=== PATIENT | female | born 1980 | race Caucasian/White ===

== ENCOUNTER 2017-04-08 17:27 | Emergency (ER) | payer BC ==
[2017-04-08 17:36] VITALS: RESP 17
[2017-04-08] MEDS ORDERED: SODIUM CHLORIDE 0.9% 1,000 ML IV STA (17:59)
[2017-04-08] MEDS ORDERED: diphenhydrAMINE 50 MG/ML 1 ML VIAL IVP STA (17:59)
[2017-04-08] MEDS ORDERED: KETOROLAC 30 MG/ML 1 ML VIAL IVP STA (17:59)
[2017-04-08] MEDS ORDERED: METOCLOPRAMIDE 5 MG/ML 2 ML VIAL IVP STA (17:59)
--- NOTE | 2017-04-08 18:08 | ED ---
General Adult HPI - General Chief complaint: Headache Stated complaint: headache Time Seen by Provider: 04/08/17 17:54 Source: patient, RN notes reviewed Mode of arrival: ambulatory Limitations: no limitations - History of Present Illness Initial comments: 37 yo female presents to the emergency department complaining of headache. Patient states this headache gradually worsened. Patient has a long history of headaches. Patient states that she takes Imitrex for her headaches. Patient states she's had this headache for the last 8 days. Patient states she went to [facility] ago they gave her Toradol which only helped her for about 2 hours. Patient states that she just has this headache is so she thought she should come here to see if we. She does admit to some nausea with vomiting with this. Patient states this is much like her typical headaches. She tried to get in to neurologist that he was unable to see her. Patient denies any recent fever, chills, shortness of breath, chest pain, back pain, abdominal pain , numbness or tingling, dysuria or hematuria, constipation or diarrhea, visual changes, or any other current symptoms. - Related Data Home Medications Medication Instructions Recorded Confirmed Butalb/Acetaminophen/Caffeine 1 tab PO TID PRN 01/11/14 05/27/16 [Fioricet 50-325-40 mg Tablet] Amitriptyline HCl [Elavil] 100 mg PO HS 05/27/16 05/27/16 Minocycline HCl [Minocin] 100 mg PO HS 05/27/16 05/27/16 amLODIPine [Norvasc] 2.5 mg PO HS 05/27/16 05/27/16 Allergies Allergy/AdvReac Type Severity Reaction Status Date / Time zonisamide [From Zonegran] Allergy Rash/Hives Verified 04/08/17 17:33 adhesive tape AdvReac Peels Skin Verified 04/08/17 17:33 cyclobenzaprine HCl AdvReac Confusion/E Verified 04/08/17 17:33 [From Flexeril] motional Review of Systems ROS Statement: Those systems with pertinent positive or pertinent negative responses have been documented in the HPI. ROS Other: All systems not noted in ROS Statement are negative. Past Medical History Additional Past Medical History / Comment(s): headache, arnold chiari History of Any Multi-Drug Resistant Organisms: None Reported Past Surgical History: Section Additional Past Surgical History / Comment(s): head surgery, bilateral knee scope, Past Psychological History: Depression Smoking Status: Former smoker Past Alcohol Use History: Occasional Past Drug Use History: None Reported General Exam Limitations: no limitations General appearance: alert, in no apparent distress Head exam: Present: atraumatic, normocephalic, normal inspection Eye exam: Present: normal appearance, PERRL, EOMI. Absent: scleral icterus, conjunctival injection, periorbital swelling ENT exam: Present: normal exam, mucous membranes moist Neck exam: Present: normal inspection. Absent: tenderness, meningismus, lymphadenopathy Respiratory exam: Present: normal lung sounds bilaterally. Absent: respiratory distress, wheezes, rales, rhonchi, stridor Cardiovascular Exam: Present: regular rate, normal rhythm, normal heart sounds. Absent: systolic murmur, diastolic murmur, rubs, gallop, clicks Extremities exam: Present: normal inspection, full ROM, normal capillary refill. Absent: tenderness, pedal edema, joint swelling, calf tenderness Back exam: Present: normal inspection Neurological exam: Present: alert, oriented X3, CN II-XII intact, normal gait, reflexes normal. Absent: motor sensory deficit Psychiatric exam: Present: normal affect, normal mood Skin exam: Present: warm, dry, intact, normal color. Absent: rash Course Vital Signs 04/08/17 17:33 Temperature 98.9 F Pulse Rate 73 Respiratory 17 Rate Blood Pressure 135/72 O2 Sat by Pulse 100 Oximetry Medical Decision Making - Medical Decision Making 37 yo female presents to the ER with cc of headache x 8 days. Patient has a long history of headaches and states much like her normal headache. Patient at this time was reexamined and states her headache hasmuch improved. SHe would like to go home and get some sleep. At this time we will discharge her per her request. We discussed return parameters and follow up. All questions have been answered. Disposition Clinical Impression: Headache Disposition: HOME SELF-CARE Condition: Stable Instructions: Acute Headache (ED) Additional Instructions: Please use medication as discussed. Please follow up with family doctor if symptoms have not improved over the next two days. Please return to the emergency room if your symptoms increase or worsen or for any other concerns. Referrals: Taylor Talavera III, MD [Primary Care Provider] - 1-2 days Time of Disposition: 18:36
[2017-04-08 18:47] VITALS: BP 112/53; PULSE 64; TEMP 97.6
== END 2017-04-08 18:48 | disposition home or self-care (01) ==
LOC: EC 17:27
DX: F32.9 Major depressive disorder, single episode, unspecified (principal); Z87.891 Personal history of nicotine dependence; Z79.899 Other long term (current) drug therapy; Z88.8 Allergy status to other drugs, medicaments and biological substances; Z91.048 Other nonmedicinal substance allergy status
CPT/HCPCS: 99283; 96374; 96375 ×2; 96361; J1200; J2765; J1885

== ENCOUNTER 2017-11-17 02:07 | Emergency (ER) | payer BC ==
[2017-11-17 02:15] VITALS: TEMP 97.2
[2017-11-17] MEDS ORDERED: KETOROLAC 30 MG/ML 1 ML VIAL IVP STA (02:37)
[2017-11-17] MEDS ORDERED: ONDANSETRON 4 MG/2 ML VIAL IVP STA (02:37)
--- NOTE | 2017-11-17 02:45 | ED ---
General Adult HPI - General Chief complaint: Abdominal Pain Stated complaint: Left side pain Time Seen by Provider: 11/17/17 02:28 Source: patient, RN notes reviewed Mode of arrival: ambulatory Limitations: no limitations - History of Present Illness Initial comments: This is a 37-year-old female who presents to the emergency department with chief complaint of left side pain. Patient states that she has felt this pain multiple times in the past but that it usually goes away within 30 minutes. She states that tonight at approximately 6 PM the left side pain came on. She states that she went to bed and was woken up in the middle of the night from the pain. She describes the pain as a constant dull ache with burning. The pain is made worse by lying flat down and is made better by sitting up. She admits to associated nausea and one episode of vomiting. Denies any constipation or diarrhea. Denies chest pain or shortness of breath, fevers or chills, dizziness or headache. Patient denies any recent injuries or trauma. - Related Data Home Medications Medication Instructions Recorded Confirmed Topiramate [Topamax] 50 mg PO BID 04/08/17 11/17/17 Allergies Allergy/AdvReac Type Severity Reaction Status Date / Time zonisamide [From Zonegran] Allergy Rash/Hives Verified 04/08/17 18:46 adhesive tape AdvReac Peels Skin Verified 04/08/17 18:46 cyclobenzaprine HCl AdvReac Confusion/E Verified 04/08/17 18:46 [From Flexeril] motional Review of Systems ROS Statement: Those systems with pertinent positive or pertinent negative responses have been documented in the HPI. ROS Other: All systems not noted in ROS Statement are negative. Past Medical History Additional Past Medical History / Comment(s): headache, arnold chiari, reynauds History of Any Multi-Drug Resistant Organisms: None Reported Past Surgical History: Section Additional Past Surgical History / Comment(s): head surgery, bilateral knee scope, Past Psychological History: Depression Smoking Status: Former smoker Past Alcohol Use History: Occasional Past Drug Use History: None Reported General Exam - General Exam Comments Initial Comments: General: Awake and alert, well-developed; in no apparent distress. HEENT: Head atraumatic, normocephalic. Pupils are equal, round and reactive to light. Extraocular movements intact. Oropharynx moist without erythema or exudate. Neck: Supple. Normal ROM. Cardiovascular: Regular rate and rhythm. No murmurs, rubs or gallops. Chest symmetrical. Tenderness on palpation of anterior lower left sided ribs. Respiratory: Lungs clear to auscultation bilaterally. No wheezes, rales or rhonchi. Normal respiratory effort with no use of accessory muscles. Abdomen: Soft, non-tender, non-distended. No rigidity, rebound or guarding. Normal bowel sounds in all 4 quadrants. Musculoskeletal: Normal ROM, no tenderness bilateral upper and lower extremities. Ambulating normally. Skin: [place], warm and dry without rashes or lesions. Neurological: Alert and oriented x3. CN II-XII grossly intact. Speech is fluent and answers are appropriate. No focal neuro deficits. Psychiatric: Normal mood and affect. No overt signs of depression or anxiety noted. Limitations: no limitations Course Vital Signs 11/17/17 11/17/17 02:11 03:03 Temperature 97.2 F L Pulse Rate 80 68 Respiratory 20 16 Rate Blood Pressure 120/58 116/58 O2 Sat by Pulse 100 100 Oximetry EKG Findings - EKG Comments: EKG Findings:: 03:25:55. Normal sinus rhythm. Ventricular rate 63 bpm, WA interval 124, QRS duration 98, QT/QTc 400/409. No ST segment elevation or depression. Medical Decision Making - Medical Decision Making This is a 37-year-old female who presents to the emergency department with chief complaint of left side pain. Patient states that she developed pain under the left ribs earlier this evening. She denies any specific injury or trauma. She states that she went to bed and the pain woke her up out of her sleep. She admits to associated nausea and one episode of vomiting. Denies any fevers or chills. Denies chest pain, shortness of breath or cough. On physical examination, there is tenderness on palpation of the anterior left lower ribs. Abdomen is soft and non-tender. CBC, CMP and UA are unremarkable. X-ray of left ribs and AP chest revealed no acute abnormalities. EKG revealed normal sinus rhythm with no evidence for ST segment elevation or depression. Patient's vital signs are stable and she is afebrile. She was given Toradol and Zofran while in the emergency department. Patient states that her symptoms have much improved. Patient will be discharged home with recommendation to follow-up with her primary care provider. She is in agreement with plan and voices understanding. All questions were answered. - Lab Data Result diagrams: 11/17/17 02:25 11/17/17 02:25 Lab Results 11/17/17 11/17/17 11/17/17 Range/Units 02:25 02:25 02:25 WBC 9.4 (3.8-10.6) k/uL RBC 4.73 (3.80-5.40) m/uL Hgb 13.5 (11.4-16.0) gm/dL Hct 40.2 (34.0-46.0) % MCV 85.0 (80.0-100.0) fL MCH 28.5 (25.0-35.0) pg MCHC 33.6 (31.0-37.0) g/dL RDW 13.7 (11.5-15.5) % Plt Count 338 (150-450) k/uL Neutrophils % 52 % Lymphocytes % 38 % Monocytes % 5 % Eosinophils % 3 % Basophils % 1 % Neutrophils # 4.9 (1.3-7.7) k/uL Lymphocytes # 3.6 (1.0-4.8) k/uL Monocytes # 0.5 (0-1.0) k/uL Eosinophils # 0.3 (0-0.7) k/uL Basophils # 0.1 (0-0.2) k/uL Sodium 141 (137-145) mmol/L Potassium 3.8 (3.5-5.1) mmol/L Chloride 105 (98-107) mmol/L Carbon Dioxide 26 (22-30) mmol/L Anion Gap 10 mmol/L BUN 16 (7-17) mg/dL Creatinine 1.00 (0.52-1.04) mg/dL Est GFR (CKD-EPI)AfAm 84 (>60 ml/min/1.73 sqM) Est GFR (CKD-EPI)NonAf 73 (>60 ml/min/1.73 sqM) Glucose 101 H (74-99) mg/dL Calcium 9.5 (8.4-10.2) mg/dL Total Bilirubin 0.4 (0.2-1.3) mg/dL AST 15 (14-36) U/L ALT 19 (9-52) U/L Alkaline Phosphatase 75 (38-126) U/L Total Protein 7.7 (6.3-8.2) g/dL Albumin 4.4 (3.5-5.0) g/dL Amylase 62 (30-110) U/L Lipase 108 (23-300) U/L Urine Color Urine Appearance (Clear) Urine pH (5.0-8.0) Ur Specific [place] (1.001-1.035) Urine Protein (Negative) Urine Glucose (UA) (Negative) Urine Ketones (Negative) Urine Blood (Negative) Urine Nitrite (Negative) Urine Bilirubin (Negative) Urine Urobilinogen (<2.0) mg/dL Ur Leukocyte Esterase (Negative) Urine HCG, Qual Not Detected (Not Detectd) 11/17/17 Range/Units 02:25 WBC (3.8-10.6) k/uL RBC (3.80-5.40) m/uL Hgb (11.4-16.0) gm/dL Hct (34.0-46.0) % MCV (80.0-100.0) fL MCH (25.0-35.0) pg MCHC (31.0-37.0) g/dL RDW (11.5-15.5) % Plt Count (150-450) k/uL Neutrophils % % Lymphocytes % % Monocytes % % Eosinophils % % Basophils % % Neutrophils # (1.3-7.7) k/uL Lymphocytes # (1.0-4.8) k/uL Monocytes # (0-1.0) k/uL Eosinophils # (0-0.7) k/uL Basophils # (0-0.2) k/uL Sodium (137-145) mmol/L Potassium (3.5-5.1) mmol/L Chloride (98-107) mmol/L Carbon Dioxide (22-30) mmol/L Anion Gap mmol/L BUN (7-17) mg/dL Creatinine (0.52-1.04) mg/dL Est GFR (CKD-EPI)AfAm (>60 ml/min/1.73 sqM) Est GFR (CKD-EPI)NonAf (>60 ml/min/1.73 sqM) Glucose (74-99) mg/dL Calcium (8.4-10.2) mg/dL Total Bilirubin (0.2-1.3) mg/dL AST (14-36) U/L ALT (9-52) U/L Alkaline Phosphatase (38-126) U/L Total Protein (6.3-8.2) g/dL Albumin (3.5-5.0) g/dL Amylase (30-110) U/L Lipase (23-300) U/L Urine Color Light Yellow Urine Appearance Clear (Clear) Urine pH 5.5 (5.0-8.0) Ur Specific [place] 1.011 (1.001-1.035) Urine Protein Negative (Negative) Urine Glucose (UA) Negative (Negative) Urine Ketones Negative (Negative) Urine Blood Negative (Negative) Urine Nitrite Negative (Negative) Urine Bilirubin Negative (Negative) Urine Urobilinogen <2.0 (<2.0) mg/dL Ur Leukocyte Esterase Negative (Negative) Urine HCG, Qual (Not Detectd) - Radiology Data Radiology results: report reviewed X-ray left ribs with PA chest findings: Heart and mediastinum are normal. Lungs are clear. Diaphragm is normal. Bony thorax appears normal. The left ribs appear intact. There is no sign of pleural effusion or pneumothorax. Impression: Normal chest. Normal left ribs. Disposition Clinical Impression: Rib pain on left side Disposition: HOME SELF-CARE Condition: Good Instructions: Acute Abdominal Pain (ED), Chest Wall Pain (ED) Additional Instructions: Please follow up with primary care provider within 1-2 days. Return to emergency department if symptoms should worsen or any concerns arise. Referrals: Taylor Talavera III, MD [Primary Care Provider] - 1-2 days Time of Disposition: 03:45
[2017-11-17 02:51] LABS: Basophils # (A) 0.1 k/uL (0-0.2); Basophils % (A) 1 %; Eosinophils # (A) 0.3 k/uL (0-0.7); Eosinophils % (A) 3 %; HCT 40.2 % (34.0-46.0); HGB 13.5 gm/dL (11.4-16.0); Lymphocytes # (A) 3.6 k/uL (1.0-4.8); Lymphocytes % (A) 38 %; MCH 28.5 pg (25.0-35.0); MCHC 33.6 g/dL (31.0-37.0); Mean Platelet Volume 7.5; Monocytes # (A) 0.5 k/uL (0-1.0); Monocytes % (A) 5 %; Neutrophils # (A) 4.9 k/uL (1.3-7.7); Neutrophils % (A) 52 %; Platelet Count 338 k/uL (150-450); RBC 4.73 m/uL (3.80-5.40); RDW 13.7 % (11.5-15.5); WBC 9.4 k/uL (3.8-10.6)
[2017-11-17 02:52] LABS: Appearance,Urine Clear (Clear); Bilirubin,Urine Negative (Negative); Blood,Urine Negative (Negative); Color,Urine Light Yellow; Glucose,Urine (UA) Negative (Negative); Ketones,Urine Negative (Negative); Leukocyte Esterase,Urine Negative (Negative); Nitrite,Urine Negative (Negative); PH, Urine 5.5 (5.0-8.0); Protein,Urine Negative (Negative); Specific Gravity,Urine 1.011 (1.001-1.035); Urobilinogen,Urine <2.0 mg/dL (<2.0)
--- NOTE | 2017-11-17 02:58 | XR ---
EXAMINATION TYPE: XR ribs LT w pa chest xray DATE OF EXAM: 11/17/2017 COMPARISON: NONE HISTORY: Rib pain TECHNIQUE: 5 views FINDINGS: Heart and mediastinum are normal. Lungs are clear. Diaphragm is normal. Bony thorax appears normal. The left ribs appear intact. There is no sign of pleural effusion or pneumothorax. IMPRESSION: Normal chest. Normal left ribs.
[2017-11-17 03:05] VITALS: BP 116/58; PULSE 68; RESP 16
[2017-11-17 03:06] LABS: Albumin 4.4 g/dL (3.5-5.0); Calcium 9.5 mg/dL (8.4-10.2); Potassium 3.8 mmol/L (3.5-5.1); Total Bilirubin 0.4 mg/dL (0.2-1.3); Total Protein 7.7 g/dL (6.3-8.2)
[2017-11-17] MEDS ORDERED: MAG HYDROX/AL HYDROX/SIMETH 30 ML, HYOSCYAMINE ELIXIR 10 ML, CIMETIDINE HCL 300 MG, LID... PO STA ×4 (03:18)
== END 2017-11-17 04:04 | disposition home or self-care (01) ==
LOC: EC 02:07
DX: R07.81 Pleurodynia (principal); R11.2 Nausea with vomiting, unspecified; Q07.00 Arnold-Chiari syndrome without spina bifida or hydrocephalus; Z87.891 Personal history of nicotine dependence; Z79.899 Other long term (current) drug therapy; Z88.8 Allergy status to other drugs, medicaments and biological substances; Z91.048 Other nonmedicinal substance allergy status
CPT/HCPCS: 36415; 93005; 80053; 82150; 83690; 85025; 81003; 81025; 71101; 99284; 96374; 96375; J2405; J1885

== ENCOUNTER 2018-03-04 19:41 | Emergency (ER) | payer BC ==
[2018-03-04 19:48] VITALS: RESP 18; TEMP 98.2
[2018-03-04] MEDS ORDERED: PROPARACAINE 0.5% OPHTH DROPS 15 ML BTL LEFT EYE STA (20:35)
--- NOTE | 2018-03-04 20:43 | ED ---
General Adult HPI - General Chief complaint: ENT Stated complaint: FB eye Time Seen by Provider: 03/04/18 20:17 Source: patient Mode of arrival: ambulatory Limitations: no limitations - History of Present Illness Initial comments: Patient is a 38-year-old female presenting for right eye pain. She states that on Wednesday, she wants her cabin in [facility] and went swimming in [place] on Wednesday. She then was doing some work in her showed on Wednesday and noted that there was some kind of foreign body sensation in right eye. On Wednesday, she started noticing some swelling and then on Wednesday he became more flushed and she was seen at an outside clinic where they diagnosed her with a corneal abrasion and gave her tobramycin drops. However, she states that she is now having increased pain with some mild blurry vision. However, she states that the swelling that was surrounding her eye has gone down after she was started on some antibiotics. Additionally, she denies any fevers/chills or headaches. - Related Data Home Medications Medication Instructions Recorded Confirmed Topiramate [Topamax] 50 mg PO HS 04/08/17 03/04/18 Acetaminophen [Tylenol Extra 1,000 mg PO TID PRN 03/04/18 03/04/18 Strength] Amitriptyline HCl [Elavil] 25 mg PO HS 03/04/18 03/04/18 Ibuprofen [Motrin Ib] 600 mg PO TID PRN 03/04/18 03/04/18 Sertraline [Zoloft] 25 mg PO HS 03/04/18 03/04/18 Tobramycin 0.3% Ophth Soln [Tobrex 2 drop RIGHT EYE Q4H 03/04/18 03/04/18 0.3% Ophth Soln] amLODIPine [Norvasc] 5 mg PO HS 03/04/18 03/04/18 Previous Rx's Medication Instructions Recorded Diclofenac 0.1% Ophth Soln 1 drops RIGHT EYE QID #1 bottle 03/04/18 [Voltaren 0.1% Ophth Soln] Peg 400/Hypromellose/Glycerin 15 ml OP Q4-6H 7 Days #1 bottle 03/04/18 [Visine Dry Eye Relief Drop] Allergies Allergy/AdvReac Type Severity Reaction Status Date / Time [facility] Allergy Rash/Hives Verified 03/04/18 20:29 adhesive tape AdvReac Peels Skin Verified 03/04/18 20:29 cyclobenzaprine HCl AdvReac Confusion/E Verified 03/04/18 20:29 [From Flexeril] motional Review of Systems ROS Statement: Those systems with pertinent positive or pertinent negative responses have been documented in the HPI. Constitutional: Negative for chills, fatigue and fever. HENT: Negative for congestion. Eyes: Right eye pain and swelling; blurry vision Respiratory: Negative for chest tightness, shortness of breath and wheezing. Negative for cough Cardiovascular: Negative for chest pain and palpitations. Gastrointestinal: Negative for abdominal pain. Negative for abdominal distention , diarrhea, nausea and vomiting. Genitourinary: Negative for dysuria. Musculoskeletal: Negative for back pain, neck pain and neck stiffness. Skin: Negative for color change. Neurological: Negative for dizziness, speech difficulty, weakness and light- headedness. Psychiatric/Behavioral: Negative for agitation and confusion. Negative for anxiety ROS Other: All systems not noted in ROS Statement are negative. Past Medical History Additional Past Medical History / Comment(s): headache, arnold chiari, reynauds History of Any Multi-Drug Resistant Organisms: None Reported Past Surgical History: Section Additional Past Surgical History / Comment(s): head surgery, bilateral knee scope, Past Psychological History: No Psychological Hx Reported Smoking Status: Former smoker Past Alcohol Use History: Occasional Past Drug Use History: None Reported General Exam - General Exam Comments Initial Comments: Constitutional: Pt is oriented to person, place, and time. Pt appears well- developed and well-nourished. No distress. HENT: Head: Normocephalic and atraumatic. Eyes: EOM are normal. Conjunctival injection with chemosis of the right eye. Pupils 3 mm and reactive bilaterally. Neck: Normal range of motion. Neck supple. Cardiovascular: Normal rate, regular rhythm, S1 normal, S2 normal and normal heart sounds. Exam reveals no gallop and no friction rub. No murmur heard. Pulmonary/Chest: Effort normal and breath sounds normal. No tachypnea and no bradypnea. No respiratory distress. No wheezes or rales noted. Abdominal: Soft. Bowel sounds are normal. Pt exhibits no shifting dullness, no distension, no pulsatile liver, no fluid wave, no abdominal bruit and no ascites. There is no tenderness. There is no rigidity, no rebound, no guarding, no tenderness at McBurney's point and negative Thomas's sign. Musculoskeletal: Normal range of motion. Neurological: Pt is alert and oriented to person, place, and time. No cranial nerve deficit. Skin: Skin is warm and dry. No rash noted. Pt is not diaphoretic. No erythema. No pallor. Psychiatric: Pt has a normal mood and affect. Pt behavior is normal. Thought content normal. Limitations: no limitations Course Vital Signs 03/04/18 03/04/18 19:43 22:50 Temperature 98.2 F 98.2 F Pulse Rate 91 82 Respiratory 18 18 Rate Blood Pressure 138/85 142/75 O2 Sat by Pulse 100 100 Oximetry Medical Decision Making - Medical Decision Making Slit lamp exam was performed and showed that there was some fluorescein uptake around the area of the pupil as well as the medial conjunctiva. This is discussed with ophthalmology on-call, Dr. Mao, and it was advised that the patient should be given a prescription for artificial tears as well as diclofenac drops 4 times a day. She was also advised to call the orderlies teacher on Wednesday and if the symptoms worsen, she should contact him prior to this. Visual acuity was also measured at 20/20 in the left eye, 20/25 in the right eye and 20/25 bilaterally and because of this, it was felt that the patient could be safely discharged with close follow-up. Patient was agreeable plan. Disposition Clinical Impression: Conjunctivitis, Chemosis of right conjunctiva Disposition: HOME SELF-CARE Condition: Good Instructions: Conjunctivitis (ED) Prescriptions: Diclofenac 0.1% Ophth Soln [Voltaren 0.1% Ophth Soln] 1 drops RIGHT EYE QID #1 bottle Peg 400/Hypromellose/Glycerin [Visine Dry Eye Relief Drop] 15 ml OP Q4-6H 7 Days #1 bottle Is patient prescribed a controlled substance at d/c from ED?: No Referrals: Taylor Talavera III, MD [Primary Care Provider] - 1-2 days Yoel Mao MD [STAFF PHYSICIAN] - 1-2 days Time of Disposition: 22:14
[2018-03-04 22:51] VITALS: BP 142/75; PULSE 82
== END 2018-03-04 22:51 | disposition home or self-care (01) ==
LOC: EC 19:41
DX: H11.421 Conjunctival edema, right eye (principal); Z87.891 Personal history of nicotine dependence; Z79.899 Other long term (current) drug therapy; Z88.8 Allergy status to other drugs, medicaments and biological substances; Z91.048 Other nonmedicinal substance allergy status
CPT/HCPCS: 99283

== ENCOUNTER 2018-05-24 14:29 | Emergency (ER) | payer BC ==
[2018-05-24 14:36] VITALS: PULSE 91; RESP 18
[2018-05-24] MEDS ORDERED: SODIUM CHLORIDE 0.9% 1,000 ML IV ONE (14:53)
--- NOTE | 2018-05-24 15:04 | ED ---
General Adult HPI - General Chief complaint: Abdominal Pain Stated complaint: abd pain,vomiting Source: patient Mode of arrival: ambulatory Limitations: no limitations - History of Present Illness Initial comments: 38-year-old female past medical history of Chiari malformation, Joseph disease and Raynauds who presents today for chief complaint of abdominal pain after eating and greasy stools for past month worsening3 days. Patient states that she has been experiencing abdominal pain after eating for the past few months, however for the past 2 days it has been worsening. She states that this begins to occur 15 minutes after meal, causing pain 7 out of 10. She states that this pain is localized to the epigastric region with radiation to the left upper quadrant and mid back. Patient denies any chest pain, shortness of breath, dyspnea on exertion, history of OK, paresthesias of upper extremities or jaw. Patient does admit to loose stools at feel greasy. She states that she has seen increase on the top of the water in the toilet. Patient denies any melena , hematochezia. Patient states that she has had one episode of vomiting yesterday after eating, and 2 episodes today. Patient admits to some nausea and a feeling of flushing prior to the episodes of vomiting. Patient denies any hematemesis, fever, chills. Patient denies any lower abdominal pain, vaginal bleeding, . Patient states that her last menstrual period was last week. Patient does state that she's been able to tolerate by mouth intake , however if it is greasy/fatty food she states she experienced the symptoms as above. However she has no symptoms to water or liquid beverages. Remainder was negative. Patient states that she contact her primary care provider who stated she should go to urgent care however at urgent care she was sent to the emergency department for evaluation. Upon arrival to emergency department today patient's vital signs stable, she is afebrile. Patient is pleasant and does not appear to be in acute distress. - Related Data Home Medications Medication Instructions Recorded Confirmed Topiramate [Topamax] 50 mg PO HS 04/08/17 05/24/18 Acetaminophen [Tylenol Extra 1,000 mg PO TID PRN 03/04/18 05/24/18 Strength] Amitriptyline HCl [Elavil] 25 mg PO HS 03/04/18 05/24/18 Ibuprofen [Motrin Ib] 400 mg PO TID PRN 03/04/18 05/24/18 Sertraline [Zoloft] 25 mg PO HS 03/04/18 05/24/18 amLODIPine [Norvasc] 5 mg PO HS 03/04/18 05/24/18 Allergies Allergy/AdvReac Type Severity Reaction Status Date / Time zonisamide [From Zonegran] Allergy Rash/Hives Verified 05/24/18 14:52 adhesive tape AdvReac Peels Skin Verified 05/24/18 14:52 cyclobenzaprine HCl AdvReac Confusion/E Verified 05/24/18 14:52 [From Flexeril] motional Review of Systems ROS Statement: Those systems with pertinent positive or pertinent negative responses have been documented in the HPI. ROS Other: All systems not noted in ROS Statement are negative. Constitutional: Denies: fever, chills, night sweats Eyes: Denies: vision change ENT: Denies: ear pain, throat pain Respiratory: Denies: cough, dyspnea, wheezes, hemoptysis, stridor Cardiovascular: Denies: chest pain, palpitations, dyspnea on exertion, orthopnea Gastrointestinal: Reports: abdominal pain, vomiting, diarrhea. Denies: nausea, constipation, hematemesis, melena, hematochezia Genitourinary: Denies: urgency, dysuria, frequency, hematuria Musculoskeletal: Reports: back pain (epigastric pain that radiation to the back) Skin: Denies: rash, lesions Neurological: Denies: headache, weakness, numbness, paresthesias, confusion, abnormal gait Past Medical History Additional Past Medical History / Comment(s): POTS, arnold mariam huntley History of Any Multi-Drug Resistant Organisms: None Reported Past Surgical History: Section Additional Past Surgical History / Comment(s): chiari decompression, bilateral knee scope, D&C Past Psychological History: No Psychological Hx Reported Smoking Status: Former smoker Past Alcohol Use History: Occasional Past Drug Use History: None Reported General Exam - General Exam Comments Initial Comments: General: The patient is awake and alert, in no distress, and does not appear acutely ill. No noted diaphoresis or protective posturing. No jaundice. Eye: Pupils are equal, round and reactive to light, extra-ocular movements are intact. No nystagmus. There is normal conjunctiva bilaterally. No signs of icterus. Ears, nose, mouth and throat: There are moist mucous membranes and no oral lesions. Neck: The neck is supple, there is no tenderness or JVD. Cardiovascular: There is a regular rate and rhythm. No murmur, rub or gallop is appreciated. Respiratory: Lungs are clear to auscultation, respirations are non-labored, breath sounds are equal. No wheezes, stridor, rales, or rhonchi. Gastrointestinal: No scarring on abdomen, ecchymosis upon inspection. Soft, non -distended, without masses or organomegaly noted. Pt admits to tenderness to deep palpation over the epigastric and LUQ. There is no rebound or guarding present. (-) Rovsing, meena, McBurneys or Rombergs signs. No RLQ, LLQ, pelvic or suprapubic tenderness. No CVA tenderness. Bowel sounds are unremarkable. No signs of peritoneal irritation, (-) heel jar. Musculoskeletal: Normal ROM, no tenderness. Strength 5/5. Sensation intact. Pulses equal bilaterally 2+. Neurological: A&O x 3. CN II-XII intact, There are no obvious motor or sensory deficits. Coordination appears grossly intact. Speech is normal. Skin: Skin is warm and dry and no rashes or lesions are noted. Psychiatric: Cooperative, appropriate mood & affect, normal judgment. Limitations: no limitations Course Vital Signs 05/24/18 05/24/18 14:33 17:22 Temperature 98 F 97.9 F Pulse Rate 91 91 Respiratory 18 18 Rate Blood Pressure 105/54 128/60 O2 Sat by Pulse 100 100 Oximetry Medical Decision Making - Medical Decision Making Pt denies current pain. Labs all WNL, UA (-) and urine HCG undetectable within acceptable limits. CXR (-) no evidence of free air. U/S (-) for cholecystitis, gallbladder sludge, or GB stones. Pancreas visualized WNL. No evidence of biliary stones. Given pancreatic enzymes WNL, U/S WNL, no signs of acute abdomen on physical exam. And no free air or pulmonary process on CXR at this time I feel pt is stable for d/c with GI follow-up. Symptoms appear consistent with malabsorption. After discussing findings with pt today she agrees with plan of f/u and states she is ready to go home. Case discussed in detail with Dr. Craft who agrees with impression and plan. Pt d/c in stable condition. - Lab Data Result diagrams: 05/24/18 15:22 05/24/18 15:22 Lab Results 05/24/18 05/24/18 05/24/18 Range/Units 14:36 14:36 15:22 WBC (3.8-10.6) k/uL RBC (3.80-5.40) m/uL Hgb (11.4-16.0) gm/dL Hct (34.0-46.0) % MCV (80.0-100.0) fL MCH (25.0-35.0) pg MCHC (31.0-37.0) g/dL RDW (11.5-15.5) % Plt Count (150-450) k/uL Neutrophils % % Lymphocytes % % Monocytes % % Eosinophils % % Basophils % % Neutrophils # (1.3-7.7) k/uL Lymphocytes # (1.0-4.8) k/uL Monocytes # (0-1.0) k/uL Eosinophils # (0-0.7) k/uL Basophils # (0-0.2) k/uL Sodium 139 (137-145) mmol/L Potassium 4.7 (3.5-5.1) mmol/L Chloride 107 (98-107) mmol/L Carbon Dioxide 22 (22-30) mmol/L Anion Gap 10 mmol/L BUN 14 (7-17) mg/dL Creatinine 0.98 (0.52-1.04) mg/dL Est GFR (CKD-EPI)AfAm 85 (>60 ml/min/1.73 sqM) Est GFR (CKD-EPI)NonAf 74 (>60 ml/min/1.73 sqM) Glucose 83 (74-99) mg/dL Calcium 9.1 (8.4-10.2) mg/dL Total Bilirubin 0.7 (0.2-1.3) mg/dL AST 26 (14-36) U/L ALT 14 (9-52) U/L Alkaline Phosphatase 63 (38-126) U/L Total Protein 8.0 (6.3-8.2) g/dL Albumin 4.3 (3.5-5.0) g/dL Amylase 64 (30-110) U/L Lipase 113 (23-300) U/L Urine Color Colorless Urine Appearance Clear (Clear) Urine pH 6.0 (5.0-8.0) Ur Specific [place] 1.004 (1.001-1.035) Urine Protein Negative (Negative) Urine Glucose (UA) Negative (Negative) Urine Ketones Negative (Negative) Urine Blood Negative (Negative) Urine Nitrite Negative (Negative) Urine Bilirubin Negative (Negative) Urine Urobilinogen <2.0 (<2.0) mg/dL Ur Leukocyte Esterase Negative (Negative) Urine HCG, Qual Not Detected (Not Detectd) 05/24/18 Range/Units 15:22 WBC 8.0 (3.8-10.6) k/uL RBC 4.95 (3.80-5.40) m/uL Hgb 14.0 (11.4-16.0) gm/dL Hct 42.0 (34.0-46.0) % MCV 84.9 (80.0-100.0) fL MCH 28.3 (25.0-35.0) pg MCHC 33.3 (31.0-37.0) g/dL RDW 13.9 (11.5-15.5) % Plt Count 321 (150-450) k/uL Neutrophils % 57 % Lymphocytes % 34 % Monocytes % 5 % Eosinophils % 2 % Basophils % 1 % Neutrophils # 4.6 (1.3-7.7) k/uL Lymphocytes # 2.7 (1.0-4.8) k/uL Monocytes # 0.4 (0-1.0) k/uL Eosinophils # 0.2 (0-0.7) k/uL Basophils # 0.0 (0-0.2) k/uL Sodium (137-145) mmol/L Potassium (3.5-5.1) mmol/L Chloride (98-107) mmol/L Carbon Dioxide (22-30) mmol/L Anion Gap mmol/L BUN (7-17) mg/dL Creatinine (0.52-1.04) mg/dL Est GFR (CKD-EPI)AfAm (>60 ml/min/1.73 sqM) Est GFR (CKD-EPI)NonAf (>60 ml/min/1.73 sqM) Glucose (74-99) mg/dL Calcium (8.4-10.2) mg/dL Total Bilirubin (0.2-1.3) mg/dL AST (14-36) U/L ALT (9-52) U/L Alkaline Phosphatase (38-126) U/L Total Protein (6.3-8.2) g/dL Albumin (3.5-5.0) g/dL Amylase (30-110) U/L Lipase (23-300) U/L Urine Color Urine Appearance (Clear) Urine pH (5.0-8.0) Ur Specific [place] (1.001-1.035) Urine Protein (Negative) Urine Glucose (UA) (Negative) Urine Ketones (Negative) Urine Blood (Negative) Urine Nitrite (Negative) Urine Bilirubin (Negative) Urine Urobilinogen (<2.0) mg/dL Ur Leukocyte Esterase (Negative) Urine HCG, Qual (Not Detectd) Disposition Clinical Impression: Epigastric abdominal pain, Fatty stool Disposition: HOME SELF-CARE Condition: Good Instructions: Abdominal Pain (ED) Additional Instructions: Please use medication as discussed. Please follow-up with gastroenterology as discussed for further evaluation and your primary care provider in 1-2 days. Please return to emergency room if the symptoms increase or worsen or for any other concerns. Is patient prescribed a controlled substance at d/c from ED?: No Referrals: Taylor Talavera III, MD [Primary Care Provider] - 1-2 days Leila Bowen MD [STAFF PHYSICIAN] - 1-2 days Time of Disposition: 17:13
[2018-05-24 15:22] LABS: Appearance,Urine Clear (Clear); Bilirubin,Urine Negative (Negative); Blood,Urine Negative (Negative); Color,Urine Colorless; Glucose,Urine (UA) Negative (Negative); Ketones,Urine Negative (Negative); Leukocyte Esterase,Urine Negative (Negative); Nitrite,Urine Negative (Negative); Protein,Urine Negative (Negative); Specific Gravity,Urine 1.004 (1.001-1.035); Urobilinogen,Urine <2.0 mg/dL (<2.0)
[2018-05-24 15:33] LABS: Basophils % (A) 1 %; Eosinophils # (A) 0.2 k/uL (0-0.7); Eosinophils % (A) 2 %; Lymphocytes # (A) 2.7 k/uL (1.0-4.8); Lymphocytes % (A) 34 %; MCH 28.3 pg (25.0-35.0); MCHC 33.3 g/dL (31.0-37.0); MCV 84.9 fL (80.0-100.0); Monocytes # (A) 0.4 k/uL (0-1.0); Monocytes % (A) 5 %; Neutrophils # (A) 4.6 k/uL (1.3-7.7); Neutrophils % (A) 57 %; Platelet Count 321 k/uL (150-450); RBC 4.95 m/uL (3.80-5.40); RDW 13.9 % (11.5-15.5)
[2018-05-24 15:45] LABS: Albumin 4.3 g/dL (3.5-5.0); Calcium 9.1 mg/dL (8.4-10.2); Potassium 4.7 mmol/L (3.5-5.1); Total Bilirubin 0.7 mg/dL (0.2-1.3)
--- NOTE | 2018-05-24 16:20 | US ---
EXAMINATION TYPE: US abdomen limited DATE OF EXAM: 05/24/2018 COMPARISON: NONE CLINICAL HISTORY: Epigastric/RUQ pain. Intermittent epigastric pain and N/V/D x couple months, gotten worse in past couple days EXAM MEASUREMENTS: Liver Length: 13.3 cm Gallbladder Wall: 0.2 cm CBD: 0.3 cm Right Kidney: 10.1 x 4.2 x 5.0 cm Pancreas: visualized portions wnl, limited by overlying midline bowel gas Liver: wnl Gallbladder: wnl Evidence for sonographic Thomas's sign: yes CBD: wnl Right Kidney: wnl IMPRESSION: No shadowing mobile gallstones or ultrasound evidence for acute cholecystitis.
--- NOTE | 2018-05-24 16:46 | XR ---
EXAMINATION: XR chest 2V DATE AND TIME: 05/24/2018 4:38 PM CLINICAL INDICATION: Pain TECHNIQUE: PA and lateral COMPARISON: 11/17/2017 FINDINGS: The lungs are clear. The pleural spaces are negative. The cardiac silhouette is not enlarged. The remainder of the mediastinal silhouette is unremarkable. The skeletal structures and soft tissues are negative for acute findings. IMPRESSION: NO ACUTE PROCESS.
[2018-05-24 17:23] VITALS: BP 128/60; TEMP 97.9
== END 2018-05-24 17:22 | disposition home or self-care (01) ==
LOC: EC 14:29
DX: R10.13 Epigastric pain (principal); R19.5 Other fecal abnormalities; R11.2 Nausea with vomiting, unspecified; Q07.00 Arnold-Chiari syndrome without spina bifida or hydrocephalus; Z87.891 Personal history of nicotine dependence; Z79.899 Other long term (current) drug therapy; Z88.8 Allergy status to other drugs, medicaments and biological substances; Z91.048 Other nonmedicinal substance allergy status
CPT/HCPCS: 36415; 71046; 76705; 80053; 81003; 81025; 82150; 83690; 85025; 96360; 99284

== ENCOUNTER 2018-05-29 15:56 | Observation (INO) | payer BC ==
[2018-05-29] MEDS ORDERED: ONDANSETRON 4 MG/2 ML VIAL IVP STA (16:14)
[2018-05-29] MEDS ORDERED: SODIUM CHLORIDE 0.9% 1,000 ML IV STA (16:14)
[2018-05-29] MEDS ORDERED: PANTOPRAZOLE 40 MG/10 ML VIAL IVP STA (16:14)
[2018-05-29] MEDS ORDERED: HYDROmorphone 0.5 MG/0.5 ML SYRINGE IVP STA (16:14)
--- NOTE | 2018-05-29 16:32 | ED ---
Abdominal Pain HPI - General Source: patient, RN notes reviewed, old records reviewed Mode of arrival: ambulatory Limitations: no limitations <Rebecca Galvan - Last Filed: 05/29/18 16:27> <Boni Schultz - Last Filed: 05/29/18 18:49> - General Chief Complaint: Abdominal Pain Stated Complaint: ABDOMINAL AND BACK PAIN, RT SIDE Time Seen by Provider: 05/29/18 16:03 - History of Present Illness Initial Comments: Patient is a 38 -year-old female presents emergency department today with chief complaint of right upper quadrant and left upper quadrant abdominal pain. She' s been having symptoms for the past week. She was evaluated on Wednesday concern for gallbladder set that time. If she had a negative ultrasound and negative lab work at that time. She saw her PCP as scheduled to have a HIDA scan done next week. Patient denies any fevers or chills. She denies any urinary symptoms. She did have some diarrhea. She's had a bland diet over the last few days. She does not have any nausea medication and pain medication. ( Rebecca Galvan) - Related Data Home Medications Medication Instructions Recorded Confirmed Topiramate [Topamax] 50 mg PO HS 04/08/17 05/24/18 Acetaminophen [Tylenol Extra 1,000 mg PO TID PRN 03/04/18 05/24/18 Strength] Amitriptyline HCl [Elavil] 25 mg PO HS 03/04/18 05/24/18 Ibuprofen [Motrin Ib] 400 mg PO TID PRN 03/04/18 05/24/18 Sertraline [Zoloft] 25 mg PO HS 03/04/18 05/24/18 amLODIPine [Norvasc] 5 mg PO HS 03/04/18 05/24/18 Allergies Allergy/AdvReac Type Severity Reaction Status Date / Time zonisamide [From Zonegran] Allergy Rash/Hives Verified 05/29/18 16:02 adhesive tape AdvReac Peels Skin Verified 05/29/18 16:02 cyclobenzaprine HCl AdvReac Confusion/E Verified 05/29/18 16:02 [From Flexeril] motional Review of Systems ROS Other: All systems not noted in ROS Statement are negative. <Rebecca Galvan - Last Filed: 05/29/18 16:27> ROS Other: All systems not noted in ROS Statement are negative. <Boni Schultz - Last Filed: 05/29/18 18:49> ROS Statement: Those systems with pertinent positive or pertinent negative responses have been documented in the HPI. Past Medical History Additional Past Medical History / Comment(s): POTS, arnold chiari, angelas History of Any Multi-Drug Resistant Organisms: None Reported Past Surgical History: Section Additional Past Surgical History / Comment(s): chiari decompression, bilateral knee scope, D&C Past Psychological History: No Psychological Hx Reported Smoking Status: Former smoker Past Alcohol Use History: Occasional Past Drug Use History: None Reported <Rebecca Galvan - Last Filed: 05/29/18 16:27> General Exam Limitations: no limitations General appearance: alert, in no apparent distress Head exam: Present: atraumatic, normocephalic, normal inspection Eye exam: Present: normal appearance, PERRL, EOMI. Absent: scleral icterus, conjunctival injection, periorbital swelling ENT exam: Present: normal exam, mucous membranes moist Neck exam: Present: normal inspection. Absent: tenderness, meningismus, lymphadenopathy Respiratory exam: Present: normal lung sounds bilaterally. Absent: respiratory distress, wheezes, rales, rhonchi, stridor Cardiovascular Exam: Present: regular rate GI/Abdominal exam: Present: soft, tenderness (RUQ tenderness, LUQ tenderness), normal bowel sounds. Absent: distended, guarding, rebound, rigid Extremities exam: Present: normal inspection, full ROM, normal capillary refill. Absent: tenderness, pedal edema, joint swelling, calf tenderness Back exam: Present: normal inspection Neurological exam: Present: alert, oriented X3, CN II-XII intact Psychiatric exam: Present: normal affect, normal mood Skin exam: Present: warm, dry, intact, normal color. Absent: rash <Rebecca Galvan - Last Filed: 05/29/18 16:27> <Boni Schultz - Last Filed: 05/29/18 18:49> - General Exam Comments Initial Comments: 38-year-old female. (Rebecca Galvan) Vital Signs 05/29/18 05/29/18 15:58 18:29 Temperature 97.5 F L Pulse Rate 94 79 Respiratory 18 16 Rate Blood Pressure 102/60 146/84 O2 Sat by Pulse 100 100 Oximetry Medical Decision Making <Rebecca Galvan - Last Filed: 05/29/18 16:27> - Lab Data Result diagrams: 05/29/18 16:30 05/29/18 16:30 <Boni Schultz - Last Filed: 05/29/18 18:49> - Medical Decision Making 38-year-old female presenting for second visit for abdominal pain. Ultrasound from previous ER visit was reviewed, no radiopaque stones, no dilatation of the common bile duct, no signs for acute cholecystitis. Patient does have an outpatient HIDA scan planned for 2 days from now. Given her ongoing symptoms, CT is obtained in the emergency department which is negative for any acute intra -abdominal pathology. Laboratory studies reveal normal CBC, CMP was significant for mildly elevated AST and ALTs. Urinalysis is negative. Lipase is negative. Patient remains symptomatic while in the emergency department, she will be kept in observation for treatment of intractable abdominal pain with nausea vomiting and evaluation by gastroenterology. EKG: Normal sinus rhythm, rate of 69, AR interval 122 QRS duration 98, QTC 411. No ST segment elevation or depression (Boni Schultz) - Lab Data Lab Results 05/29/18 05/29/18 05/29/18 Range/Units 16:30 16:30 16:30 WBC 7.4 (3.8-10.6) k/uL RBC 4.89 (3.80-5.40) m/uL Hgb 14.1 (11.4-16.0) gm/dL Hct 42.1 (34.0-46.0) % MCV 86.1 (80.0-100.0) fL MCH 28.7 (25.0-35.0) pg MCHC 33.4 (31.0-37.0) g/dL RDW 13.7 (11.5-15.5) % Plt Count 307 (150-450) k/uL Neutrophils % 54 % Lymphocytes % 36 % Monocytes % 5 % Eosinophils % 3 % Basophils % 1 % Neutrophils # 4.0 (1.3-7.7) k/uL Lymphocytes # 2.7 (1.0-4.8) k/uL Monocytes # 0.3 (0-1.0) k/uL Eosinophils # 0.2 (0-0.7) k/uL Basophils # 0.1 (0-0.2) k/uL PT (9.0-12.0) sec INR (<1.2) APTT (22.0-30.0) sec Sodium 142 (137-145) mmol/L Potassium 3.7 (3.5-5.1) mmol/L Chloride 107 (98-107) mmol/L Carbon Dioxide 25 (22-30) mmol/L Anion Gap 10 mmol/L BUN 8 (7-17) mg/dL Creatinine 0.91 (0.52-1.04) mg/dL Est GFR (CKD-EPI)AfAm >90 (>60 ml/min/1.73 sqM) Est GFR (CKD-EPI)NonAf 81 (>60 ml/min/1.73 sqM) Glucose 107 H (74-99) mg/dL Calcium 9.3 (8.4-10.2) mg/dL Total Bilirubin 0.3 (0.2-1.3) mg/dL AST 79 H (14-36) U/L ALT 85 H (9-52) U/L Alkaline Phosphatase 69 (38-126) U/L Troponin I (0.000-0.034) ng/mL Total Protein 7.7 (6.3-8.2) g/dL Albumin 4.2 (3.5-5.0) g/dL Amylase 55 (30-110) U/L Lipase 82 (23-300) U/L Urine Color Colorless Urine Appearance Clear (Clear) Urine pH 7.0 (5.0-8.0) Ur Specific [place] 1.004 (1.001-1.035) Urine Protein Negative (Negative) Urine Glucose (UA) Negative (Negative) Urine Ketones Negative (Negative) Urine Blood Negative (Negative) Urine Nitrite Negative (Negative) Urine Bilirubin Negative (Negative) Urine Urobilinogen <2.0 (<2.0) mg/dL Ur Leukocyte Esterase Negative (Negative) Urine HCG, Qual (Not Detectd) 05/29/18 05/29/18 05/29/18 Range/Units 16:30 16:30 16:30 WBC (3.8-10.6) k/uL RBC (3.80-5.40) m/uL Hgb (11.4-16.0) gm/dL Hct (34.0-46.0) % MCV (80.0-100.0) fL MCH (25.0-35.0) pg MCHC (31.0-37.0) g/dL RDW (11.5-15.5) % Plt Count (150-450) k/uL Neutrophils % % Lymphocytes % % Monocytes % % Eosinophils % % Basophils % % Neutrophils # (1.3-7.7) k/uL Lymphocytes # (1.0-4.8) k/uL Monocytes # (0-1.0) k/uL Eosinophils # (0-0.7) k/uL Basophils # (0-0.2) k/uL PT 10.8 (9.0-12.0) sec INR 1.1 (<1.2) APTT 26.8 (22.0-30.0) sec Sodium (137-145) mmol/L Potassium (3.5-5.1) mmol/L Chloride (98-107) mmol/L Carbon Dioxide (22-30) mmol/L Anion Gap mmol/L BUN (7-17) mg/dL Creatinine (0.52-1.04) mg/dL Est GFR (CKD-EPI)AfAm (>60 ml/min/1.73 sqM) Est GFR (CKD-EPI)NonAf (>60 ml/min/1.73 sqM) Glucose (74-99) mg/dL Calcium (8.4-10.2) mg/dL Total Bilirubin (0.2-1.3) mg/dL AST (14-36) U/L ALT (9-52) U/L Alkaline Phosphatase (38-126) U/L Troponin I <0.012 (0.000-0.034) ng/mL Total Protein (6.3-8.2) g/dL Albumin (3.5-5.0) g/dL Amylase (30-110) U/L Lipase (23-300) U/L Urine Color Urine Appearance (Clear) Urine pH (5.0-8.0) Ur Specific [place] (1.001-1.035) Urine Protein (Negative) Urine Glucose (UA) (Negative) Urine Ketones (Negative) Urine Blood (Negative) Urine Nitrite (Negative) Urine Bilirubin (Negative) Urine Urobilinogen (<2.0) mg/dL Ur Leukocyte Esterase (Negative) Urine HCG, Qual Not Detected (Not Detectd) Disposition <Rebecca Galvan - Last Filed: 05/29/18 16:27> Is patient prescribed a controlled substance at d/c from ED?: No Decision to Admit Reason: Admit from EC Decision Date: 05/29/18 Decision Time: 18:15 <Boni Schultz - Last Filed: 05/29/18 18:49> Clinical Impression: Epigastric abdominal pain Disposition: ADMITTED IP TO THIS HOSP Condition: Stable Referrals: Taylor Talavera III, MD [Primary Care Provider] - 1-2 days
[2018-05-29 16:53] LABS: Basophils # (A) 0.1 k/uL (0-0.2); Basophils % (A) 1 %; Eosinophils # (A) 0.2 k/uL (0-0.7); Eosinophils % (A) 3 %; HCT 42.1 % (34.0-46.0); HGB 14.1 gm/dL (11.4-16.0); Lymphocytes # (A) 2.7 k/uL (1.0-4.8); Lymphocytes % (A) 36 %; MCH 28.7 pg (25.0-35.0); MCHC 33.4 g/dL (31.0-37.0); MCV 86.1 fL (80.0-100.0); Mean Platelet Volume 7.1; Monocytes # (A) 0.3 k/uL (0-1.0); Monocytes % (A) 5 %; Neutrophils % (A) 54 %; Platelet Count 307 k/uL (150-450); RBC 4.89 m/uL (3.80-5.40); RDW 13.7 % (11.5-15.5); WBC 7.4 k/uL (3.8-10.6)
[2018-05-29 16:58] LABS: Appearance,Urine Clear (Clear); Bilirubin,Urine Negative (Negative); Blood,Urine Negative (Negative); Color,Urine Colorless; Glucose,Urine (UA) Negative (Negative); Ketones,Urine Negative (Negative); Leukocyte Esterase,Urine Negative (Negative); Nitrite,Urine Negative (Negative); Protein,Urine Negative (Negative); Specific Gravity,Urine 1.004 (1.001-1.035); Urobilinogen,Urine <2.0 mg/dL (<2.0)
[2018-05-29 17:02] LABS: ALT 85 U/L (9-52); AST 79 U/L (14-36); Albumin 4.2 g/dL (3.5-5.0); Alkaline Phosphatase 69 U/L (38-126); Amylase 55 U/L (30-110); Anion Gap 10 mmol/L; Blood Urea Nitrogen 8 mg/dL (7-17); Calcium 9.3 mg/dL (8.4-10.2); Carbon Dioxide 25 mmol/L (22-30); Chloride 107 mmol/L (98-107); Glucose 107 mg/dL (74-99); INR 1.1 (<1.2); Lipase 82 U/L (23-300); Partial Thromboplastin Time 26.8 sec (22.0-30.0); Potassium 3.7 mmol/L (3.5-5.1); Prothrombin Time 10.8 sec (9.0-12.0); Sodium 142 mmol/L (137-145); Total Bilirubin 0.3 mg/dL (0.2-1.3); Total Protein 7.7 g/dL (6.3-8.2)
--- NOTE | 2018-05-29 17:46 | CT ---
EXAMINATION TYPE: CT abdomen pelvis w con DATE OF EXAM: 05/29/2018 COMPARISON: None HISTORY: EPIGASTRIC AND UPPER BACK PAIN WITH VOMITING CT DLP: 1287.8 mGycm Automated exposure control for dose reduction was used. TECHNIQUE: Helical acquisition of images was performed from the lung bases through the pelvis. CONTRAST: Performed without Oral Contrast and with IV Contrast, patient injected with 100 mL of Isovue 300. FINDINGS: Lung bases are clear. There is no pleural effusion. Heart size is normal. There is no pericardial eff usion. Liver spleen pancreas gallbladder appear normal. Bile ducts are not dilated. There is no adrenal mass . Kidneys show satisfactory contrast opacification. There is no hydronephrosis. Bladder distends smoo thly. There is no evidence of a pelvic mass. Uterus is retroverted. There is no free fluid in the pel vis. There is no evidence of pneumoperitoneum. There is no inguinal hernia. There is no retroperitoneal adenopathy. There is no mesenteric adenopathy or edema. I see no intestin al wall thickening. There are no dilated loops. Lumbar spine is intact. Bony pelvis appears intact. A bdominal soft tissues appear normal. The appendix appears normal. IMPRESSION: NEGATIVE CT SCAN OF THE ABDOMEN AND PELVIS. I DO NOT SEE A CAUSE FOR ABDOMINAL PAIN.
[2018-05-29] MEDS ORDERED: NALOXONE 0.4 MG/ML 1 ML VIAL IV PRN (18:45)
[2018-05-29] MEDS ORDERED: ONDANSETRON 4 MG/2 ML VIAL IVP PRN (18:45)
[2018-05-29] MEDS: SODIUM CHLORIDE 0.9% 1,000 ML IV SCH (19:56)
[2018-05-29 22:13] VITALS: BMI 34.9
[2018-05-29] MEDS: HYDROmorphone 1 MG/ML 1 ML SYRINGE IVP PRN (22:19)
[2018-05-30] MEDS: amLODIPine 5 MG TAB PO SCH ×2 (01:19→21:35)
[2018-05-30] MEDS: AMITRIPTYLINE HCL 25 MG TAB PO SCH ×2 (01:20→23:00)
[2018-05-30] MEDS: TOPIRAMATE 25 MG TAB PO SCH ×2 (01:20→23:00)
[2018-05-30] MEDS: SERTRALINE 25 MG TAB PO SCH ×2 (01:20→23:00)
[2018-05-30] MEDS: HYDROmorphone 1 MG/ML 1 ML SYRINGE IVP PRN ×2 (04:44→11:08)
[2018-05-30 07:53] LABS: Basophils % (A) 1 %; Eosinophils # (A) 0.2 k/uL (0-0.7); Eosinophils % (A) 3 %; HCT 40.9 % (34.0-46.0); HGB 13.2 gm/dL (11.4-16.0); Lymphocytes # (A) 2.4 k/uL (1.0-4.8); Lymphocytes % (A) 37 %; MCH 27.9 pg (25.0-35.0); MCHC 32.2 g/dL (31.0-37.0); MCV 86.5 fL (80.0-100.0); Mean Platelet Volume 7.1; Monocytes # (A) 0.3 k/uL (0-1.0); Monocytes % (A) 5 %; Neutrophils # (A) 3.5 k/uL (1.3-7.7); Neutrophils % (A) 54 %; Platelet Count 280 k/uL (150-450); RBC 4.73 m/uL (3.80-5.40); RDW 13.8 % (11.5-15.5); WBC 6.5 k/uL (3.8-10.6)
[2018-05-30 08:07] LABS: ALT 70 U/L (9-52); AST 50 U/L (14-36); Albumin 3.7 g/dL (3.5-5.0); Alkaline Phosphatase 64 U/L (38-126); Anion Gap 9 mmol/L; Blood Urea Nitrogen 6 mg/dL (7-17); Calcium 8.7 mg/dL (8.4-10.2); Carbon Dioxide 23 mmol/L (22-30); Chloride 111 mmol/L (98-107); Glucose 83 mg/dL (74-99); Magnesium 2.1 mg/dL (1.6-2.3); Potassium 4.3 mmol/L (3.5-5.1); Sodium 143 mmol/L (137-145); Total Bilirubin 0.4 mg/dL (0.2-1.3); Total Protein 6.8 g/dL (6.3-8.2)
[2018-05-30] MEDS: PANTOPRAZOLE 40 MG/10 ML VIAL IV SCH (08:59)
[2018-05-30] MEDS: SODIUM CHLORIDE 0.9% 1,000 ML IV SCH ×2 (09:00→21:34)
--- NOTE | 2018-05-30 15:37 | P.HPIM ---
History of Present Illness This is a pleasant 38 years old female with past medical history of Chiari malformation on Topamax for headache and she uses it infrequently for that reason. Presents because of abdominal pain associated with nausea and vomiting. Patient states that her problems started about 10 days ago, associated with recurrent nausea and vomiting several times that she went over the weekend to urgent care at that time they did ultrasound and x-ray as per patient and the gallbladder looked fine and asked her to follow up with her PCP and GI as an outpatient. Reaming actually initially she started feeling better and she went to see her PCP Dr. Talavera on about 4 days prior to admission when he recommended to do find a scan [done in the hospital on 2017] and asked her if her symptoms get worse to come to emergency room which got worse actually over the weekend again with more severe abdominal pain that woke her up from sleep. Patient describes the pain as epigastric radiating to the back feels Doppler/sharp together his oral intake when the patient was patent on the chicken broth. On admission her abdominal pain was 9/10 in severity, and down to 2/10 in severity. Associated with 3-4 who bowel movements on the loose side. Patient stated they were not diarrhea or watery but they were soft with a mucous. No blood last bowel movement was about 4 days ago. However she is currently passing gas and flatus. GI team were consulted already. I offered to do test for the patient. Patient declined. Risks benefits and alternatives are explained to the patient. Patient states her last menstrual period was on May 19. No current vaginal discharge. No chest pain or dyspnea. No urinary signs and symptoms Medications reviewed and including amitriptyline, amlodipine, Dilaudid, Narcan, Zofran, Protonix, Zoloft, sodium chloride infusion, and Topamax, heparin, Review of Systems CONSTITUTIONAL: No fever, no malaise, no fatigue. HEENT: No recent visual problems or hearing problems. Denied any sore throat. CARDIOVASCULAR: No orthopnea, PND, no palpitations, no syncope. PULMONARY: No shortness of breath, no cough, no hemoptysis. GASTROINTESTINAL: No diarrhea, no nausea, no vomiting, no abdominal pain. Normoactive bowel sounds. NEUROLOGICAL: No headaches, no weakness, no numbness. HEMATOLOGICAL: Denies any bleeding or petechiae. GENITOURINARY: Denies any burning micturition, frequency, or urgency. MUSCULOSKELETAL/RHEUMATOLOGICAL: Denies any joint pain, swelling, or any muscle pain. ENDOCRINE: Denies any polyuria or polydipsia. Past Medical History Additional Past Medical History / Comment(s): POTS, mariam rodriguez History of Any Multi-Drug Resistant Organisms: None Reported Past Surgical History: Section Additional Past Surgical History / Comment(s): chiari decompression, bilateral knee scope (1 on right, 3 on left), D&C Past Psychological History: No Psychological Hx Reported Smoking Status: Former smoker Past Alcohol Use History: Occasional Past Drug Use History: None Reported - Past Family History Father Family Medical History: Coronary Artery Disease (CAD) Mother Family Medical History: Hypertension Medications and Allergies Home Medications Medication Instructions Recorded Confirmed Type Topiramate [Topamax] 50 mg PO HS 04/08/17 05/30/18 History Acetaminophen [Tylenol Extra 1,000 mg PO TID PRN 03/04/18 05/30/18 History Strength] Amitriptyline HCl [Elavil] 25 mg PO HS 03/04/18 05/30/18 History Ibuprofen [Motrin Ib] 400 mg PO TID PRN 03/04/18 05/30/18 History Sertraline [Zoloft] 25 mg PO HS 03/04/18 05/30/18 History amLODIPine [Norvasc] 5 mg PO HS 03/04/18 05/30/18 History Allergies Allergy/AdvReac Type Severity Reaction Status Date / Time zonisamide [From Zonegran] Allergy Rash/Hives Verified 05/30/18 09:29 adhesive tape AdvReac Peels Skin Verified 05/30/18 09:29 cyclobenzaprine HCl AdvReac Confusion/E Verified 05/30/18 09:29 [From Flexeril] motional Physical Exam Vitals: Vital Signs Temp Pulse Pulse Resp BP BP Pulse Ox 05/30/18 14:12 97.4 F L 71 16 113/75 99 05/30/18 07:43 97.6 F 76 16 110/71 100 05/30/18 01:34 97.5 F L 64 16 104/70 100 05/29/18 21:54 98.0 F 74 16 108/66 05/29/18 19:48 98 F 74 16 108/66 99 05/29/18 19:13 97.9 F 05/29/18 18:29 79 16 146/84 100 05/29/18 15:58 97.5 F L 94 18 102/60 100 Intake and Output 05/30/18 05/30/18 05/30/18 06:59 14:59 22:59 Other: Weight 104.32 kg GENERAL: The patient is alert and oriented x3, not in any acute distress. Well developed, well nourished. HEENT: Pupils are round and equally reacting to light. EOMI. No scleral icterus. No conjunctival pallor. Normocephalic, atraumatic. No pharyngeal erythema. No thyromegaly. CARDIOVASCULAR: S1 and S2 present. No murmurs, rubs, or gallops. PULMONARY: Chest is clear to auscultation, no wheezing or crackles. -ABDOMEN: Soft, epigastric tenderness, no rebound tenderness, nondistended, normoactive bowel sounds. No palpable organomegaly. CVA tenderness is absent on both sides MUSCULOSKELETAL: No joint swelling or deformity. EXTREMITIES: No cyanosis, clubbing, or pedal edema. NEUROLOGICAL: Gross neurological examination did not reveal any focal deficits. SKIN: No rashes. Results CBC & Chem 7: 05/30/18 07:04 05/30/18 07:04 Labs: Abnormal Lab Results - Last 24 Hours (Table) 05/29/18 05/30/18 Range/Units 16:30 07:04 Chloride 111 H (98-107) mmol/L BUN 6 L (7-17) mg/dL Glucose 107 H (74-99) mg/dL AST 79 H 50 H (14-36) U/L ALT 85 H 70 H (9-52) U/L Assessment and Plan Assessment: Possible gastroenteritis with Nausea, vomiting of unclear etiology Dehydration History of Chiari malformation History of migrainous headache Plan: This is a pleasant 38 years old female who presents with gastroenteritis-like picture. Patient admitted with IV fluids, pain management. And nothing by mouth. Been evaluated by clinical documentation improvement specialist. Pending HIDA scan as it is already recommended and scheduled by her PCP. I'll also surgical consult. Continue with the same medication. Continue with symptomatic treatment. Resume home medication. Monitor lytes and vitals. GI and DVT prophylaxis. And further recommendation the clinical course of the patient DVT prophylaxis:Heparin GI prophylaxis:Protonix Prognosis is guarded
--- NOTE | 2018-05-30 18:05 | NM ---
EXAMINATION TYPE: NM hepatobiliary w CCK DATE OF EXAM: 05/30/2018 COMPARISON: CT abdomen and pelvis March 28, 2018 HISTORY: Epigastric pain into back with vomiting for one week TECHNIQUE: After the intravenous administration of 5 mCi Tc 99m Mebrofenin hepatobiliary scintigraphy is performed. Immediate images post injection. FINDINGS: There is satisfactory initial accumulation of tracer by the liver. The gallbladder is visualized wit hin 20 minutes. The small bowel activity is noted within 25 minutes. At one hour CCK was administer ed, patient was injected with 2.0 mcg of Kinevac, and gallbladder ejection fraction is calculated at 16 %, diminished from the normal range. Therefore there is no scintigraphic evidence of cystic or co mmon bile duct obstruction to suggest acute cholecystitis . Overall diminished ejection fraction is c onsistent with chronic cholecystitis and/or gallbladder dyskinesia. IMPRESSION: Ejection fraction is 16%, scintigraphic findings consistent with gallbladder dyskinesia.
[2018-05-30] MEDS: HEPARIN SODIUM,PORCINE 5,000 UNIT/ML 1 ML VIAL SQ SCH (21:35)
--- NOTE | 2018-05-30 22:24 | P.CONS ---
History of Present Illness - Reason for Consult Consult date: 05/30/18 [place] pain Requesting physician: Fam Bran - Chief Complaint Abdominal pain - History of Present Illness The patient is a pleasant 38-year-old female with a medical history significant for Raynauds, and Pott's disease who presents to the hospital with complaints of abdominal pain. The patient reports 8 days of upper abdominal pain described as a punch in the stomach at its best to excruciating and doubling the patient over at its worse. The pain is exacerbated by eating. Patient also reports nighttime symptoms waking her up from sleep. She reports nausea and vomiting on last presentation to the hospital during which time she had an ultrasound which was negative for cholelithiasis or cholecystitis. The patient was scheduled to have an outpatient HIDA scan after seeing her primary care physician but presented back to the hospital due to the persistent pain. On this admission the patient had a CT of the abdomen which was negative. At baseline the patient reports chronic constipation with a bowel movement every 8- 9 days. The patient does not use any laxatives or manual disimpaction. She reports that the constipation has been chronic her whole life and she has not sought evaluation for it previously. The patient had a normal CBC on presentation and only mildly elevated AST and ALT. She denies any sick contacts , medications, abnormal foods or travel prior to presentation. No reflux at baseline and she denies any odynophagia or dysphagia. Review of Systems REVIEW OF SYSTEMS: CARDIO: Denies any chest pain or palpitations. PULMONARY: Denies any shortness of breath or wheezing. GENITOURINARY: No dysuria or hematuria. MUSCULOSKELETAL: No weakness reported. SKIN: Denies any new rashes or lesions, jaundice or pallor. PSYCHIATRIC: Denies any depression or anxiety. NEUROLOGY: Denies headache, denies any new focal deficits. EARS: No tinnitus, discharge or new hearing loss. NOSE: No discharge or congestion. EYES: No pain in eyes or change in vision. CONSTITUTIONAL: No recent weight loss. No fever, chills, night sweats. Past Medical History Additional Past Medical History / Comment(s): POTS, arnold chiarimariam History of Any Multi-Drug Resistant Organisms: None Reported Past Surgical History: Section Additional Past Surgical History / Comment(s): chiari decompression, bilateral knee scope (1 on right, 3 on left), D&C Past Psychological History: No Psychological Hx Reported Smoking Status: Former smoker Past Alcohol Use History: Occasional Past Drug Use History: None Reported - Past Family History Father Family Medical History: Coronary Artery Disease (CAD) Mother Family Medical History: Hypertension Medications and Allergies Home Medications Medication Instructions Recorded Confirmed Type Topiramate [Topamax] 50 mg PO HS 04/08/17 05/30/18 History Acetaminophen [Tylenol Extra 1,000 mg PO TID PRN 03/04/18 05/30/18 History Strength] Amitriptyline HCl [Elavil] 25 mg PO HS 03/04/18 05/30/18 History Ibuprofen [Motrin Ib] 400 mg PO TID PRN 03/04/18 05/30/18 History Sertraline [Zoloft] 25 mg PO HS 03/04/18 05/30/18 History amLODIPine [Norvasc] 5 mg PO HS 03/04/18 05/30/18 History Allergies Allergy/AdvReac Type Severity Reaction Status Date / Time zonisamide [From Zonegran] Allergy Rash/Hives Verified 05/30/18 09:29 adhesive tape AdvReac Peels Skin Verified 05/30/18 09:29 cyclobenzaprine HCl AdvReac Confusion/E Verified 05/30/18 09:29 [From Flexeril] motional Physical Exam Vitals: Vital Signs Temp Pulse Resp BP Pulse Ox 05/30/18 14:12 97.4 F L 71 16 113/75 99 05/30/18 07:43 97.6 F 76 16 110/71 100 05/30/18 01:34 97.5 F L 64 16 104/70 100 05/29/18 21:54 98.0 F 74 16 108/66 Intake and Output 05/30/18 05/30/18 05/30/18 06:59 14:59 22:59 Intake Total 537 487 240 Balance 537 487 240 Intake: Intake, IV Titration 487 487 Amount Sodium Chloride 0.9% 1, 487 487 000 ml @ 75 mls/hr IV . [id number] [facility] Rx#:[id number] Oral 50 240 Other: Weight 104.32 kg On physical examination, patient appears comfortable in no apparent distress. HEAD: Normocephalic, atraumatic. EYES: No scleral icterus. No conjunctival injection. MOUTH: No lesions, tongue midline. NECK: Trachea midline, no gross abnormalities. CHEST: Clear to auscultation with no wheezing or rhonchi appreciated. HEART: Regular rate and rhythm. ABDOMEN: Soft, obese. Bowel sounds are positive. No organomegaly. No guarding or rigidity. Mildly tender to palpation in the upper abdomen. EXTREMITIES: No pedal edema. SKIN: No rashes, no jaundice. NEUROLOGIC: Alert and oriented x3. No focal deficits. Results CBC & Chem 7: 05/30/18 07:04 05/30/18 07:04 Labs: Abnormal Lab Results - Last 24 Hours (Table) 05/30/18 Range/Units 07:04 Chloride 111 H (98-107) mmol/L BUN 6 L (7-17) mg/dL AST 50 H (14-36) U/L ALT 70 H (9-52) U/L CT scan - abdomen: report reviewed (CT abdomen negative for any intra-abdominal pathology.) Assessment and Plan (1) Epigastric abdominal pain Narrative/Plan: Patient reporting 8 days of abdominal pain waxing and waning in intensity and worse after meals. Patient also reports nighttime worsening of symptoms. Symptoms seem compatible with cholelithiasis however ultrasound and CT have been negative for cholecystitis, cholelithiasis, choledocholithiasis or other liver pathology. Patient did have a HIDA scan today which was significant for dyskinesia. Also consider constipation in a patient with a known history of chronic constipation, and upper gastrointestinal etiology and differential. Current Visit: Yes Status: Acute Code(s): R10.13 - EPIGASTRIC PAIN SNOMED Code(s): 50799959 (2) Elevated liver enzymes Narrative/Plan: Mild elevation of AST and ALT likely related to fatty liver with no evidence of old bladder obstruction on computed tomography scan or ultrasound. Acute viral hepatitis panel ordered. Current Visit: Yes Status: Acute Code(s): R74.8 - ABNORMAL LEVELS OF OTHER SERUM ENZYMES SNOMED Code(s): 410975754 Plan: Supportive care Okay for diet and nothing by mouth after midnight Acute viral hepatitis panel pending HIDA ordered today and suggestive of dyskinesia Would recommend surgical consult given findings on HIDA We'll discuss with patient tomorrow, consideration for endoscopy if surgical service does not feel biliary pathology is causing patient's symptoms Thank you for allowing us to participate in the care of this patient we will continue to follow
[2018-05-31 08:11] LABS: ALT 65 U/L (9-52); AST 39 U/L (14-36); Albumin 3.5 g/dL (3.5-5.0); Alkaline Phosphatase 56 U/L (38-126); Anion Gap 8 mmol/L; Blood Urea Nitrogen 6 mg/dL (7-17); Carbon Dioxide 21 mmol/L (22-30); Chloride 112 mmol/L (98-107); Glucose 78 mg/dL (74-99); Sodium 141 mmol/L (137-145); Total Bilirubin 0.7 mg/dL (0.2-1.3); Total Protein 6.6 g/dL (6.3-8.2)
[2018-05-31 08:15] LABS: Potassium 4.3 mmol/L (3.5-5.1)
[2018-05-31] MEDS: HEPARIN SODIUM,PORCINE 5,000 UNIT/ML 1 ML VIAL SQ SCH ×3 (08:17→20:40)
[2018-05-31] MEDS: PANTOPRAZOLE 40 MG/10 ML VIAL IV SCH (08:17)
[2018-05-31] MEDS ORDERED: IV FLUID CONTINUATION 1,000 ML IV ONE (09:54)
[2018-05-31] MEDS ORDERED: DEXAMETHASONE SOD PHOS (MDV) 100 MG/10 ML VIAL IV ONE (10:08)
[2018-05-31] MEDS ORDERED: ONDANSETRON 4 MG/2 ML VIAL IVP ONE (10:08)
[2018-05-31] MEDS ORDERED: SCOPOLAMINE 1.5MG/72HR PATCH TRANSDERM ONE (10:17)
[2018-05-31] MEDS ORDERED: HEPARIN SODIUM,PORCINE 5,000 UNIT/ML 1 ML VIAL SQ ONE (10:28)
[2018-05-31] MEDS: SODIUM CHLORIDE 0.9% 1,000 ML IV SCH (10:32)
--- NOTE | 2018-05-31 11:08 | P.GSCN ---
History of Present Illness Consult date: 05/31/18 Reason for Consult: Abdominal pain History of present illness: This a 38-year-old female who's had a two-week history of epigastric right upper quadrant abdominal pain. Patient was admitted to the hospital and underwent GI constipation. HIDA scan performed shows evidence of chronic cholecystitis and biliary dysfunction. Her ejection fraction 16% %. Past Medical History Additional Past Medical History / Comment(s): POTS, arnmariam gandara History of Any Multi-Drug Resistant Organisms: None Reported Past Surgical History: Section Additional Past Surgical History / Comment(s): chiari decompression, bilateral knee scope (1 on right, 3 on left), D&C Past Psychological History: No Psychological Hx Reported Smoking Status: Former smoker Past Alcohol Use History: Occasional Past Drug Use History: None Reported - Past Family History Father Family Medical History: Coronary Artery Disease (CAD) Mother Family Medical History: Hypertension Medications and Allergies Home Medications Medication Instructions Recorded Confirmed Type Topiramate [Topamax] 50 mg PO HS 04/08/17 05/30/18 History Acetaminophen [Tylenol Extra 1,000 mg PO TID PRN 03/04/18 05/30/18 History Strength] Amitriptyline HCl [Elavil] 25 mg PO HS 03/04/18 05/30/18 History Ibuprofen [Motrin Ib] 400 mg PO TID PRN 03/04/18 05/30/18 History Sertraline [Zoloft] 25 mg PO HS 03/04/18 05/30/18 History amLODIPine [Norvasc] 5 mg PO HS 03/04/18 05/30/18 History Allergies Allergy/AdvReac Type Severity Reaction Status Date / Time zonisamide [From Zonegran] Allergy Rash/Hives Verified 05/30/18 09:29 adhesive tape AdvReac Peels Skin Verified 05/30/18 09:29 cyclobenzaprine HCl AdvReac Confusion/E Verified 05/30/18 09:29 [From Flexeril] motional Surgical - Exam Vital Signs Temp Pulse Resp BP Pulse Ox 97.5 F L 94 18 102/60 100 05/29/18 15:58 05/29/18 15:58 05/29/18 15:58 05/29/18 15:58 05/29/18 15:58 - General well developed, no distress - Eyes PERRL - ENT normal pinna - Neck no masses - Respiratory normal expansion - Cardiovascular Rhythm: regular - Abdomen Mild epigastric tenderness Abdomen: soft Results - Labs 05/30/18 07:04 05/31/18 06:51 Abnormal Lab Results - Last 24 Hours (Table) 05/31/18 Range/Units 06:51 Chloride 112 H (98-107) mmol/L Carbon Dioxide 21 L (22-30) mmol/L BUN 6 L (7-17) mg/dL AST 39 H (14-36) U/L ALT 65 H (9-52) U/L Diabetes panel 05/31/18 Range/Units 06:51 Sodium 141 (137-145) mmol/L Potassium 4.3 (3.5-5.1) mmol/L Chloride 112 H (98-107) mmol/L Carbon Dioxide 21 L (22-30) mmol/L BUN 6 L (7-17) mg/dL Creatinine 0.87 (0.52-1.04) mg/dL Glucose 78 (74-99) mg/dL Calcium 9.0 (8.4-10.2) mg/dL AST 39 H (14-36) U/L ALT 65 H (9-52) U/L Alkaline Phosphatase 56 (38-126) U/L Total Protein 6.6 (6.3-8.2) g/dL Albumin 3.5 (3.5-5.0) g/dL Calcium panel 05/31/18 Range/Units 06:51 Calcium 9.0 (8.4-10.2) mg/dL Albumin 3.5 (3.5-5.0) g/dL Pituitary panel 05/31/18 Range/Units 06:51 Sodium 141 (137-145) mmol/L Potassium 4.3 (3.5-5.1) mmol/L Chloride 112 H (98-107) mmol/L Carbon Dioxide 21 L (22-30) mmol/L BUN 6 L (7-17) mg/dL Creatinine 0.87 (0.52-1.04) mg/dL Glucose 78 (74-99) mg/dL Calcium 9.0 (8.4-10.2) mg/dL Adrenal panel 05/31/18 Range/Units 06:51 Sodium 141 (137-145) mmol/L Potassium 4.3 (3.5-5.1) mmol/L Chloride 112 H (98-107) mmol/L Carbon Dioxide 21 L (22-30) mmol/L BUN 6 L (7-17) mg/dL Creatinine 0.87 (0.52-1.04) mg/dL Glucose 78 (74-99) mg/dL Calcium 9.0 (8.4-10.2) mg/dL Total Bilirubin 0.7 (0.2-1.3) mg/dL AST 39 H (14-36) U/L ALT 65 H (9-52) U/L Alkaline Phosphatase 56 (38-126) U/L Total Protein 6.6 (6.3-8.2) g/dL Albumin 3.5 (3.5-5.0) g/dL Assessment and Plan Assessment: Biliary dysfunction Chronic cholecystitis We'll perform laparoscopic cholecystectomy.
[2018-05-31] MEDS ORDERED: PROPOFOL 10 MG/ML 20 ML VIAL IV ONE (11:51)
[2018-05-31] MEDS ORDERED: LIDOCAINE 1% INJ 10MG/ML (20 ML MDV) ONE (11:51)
[2018-05-31] MEDS ORDERED: SUCCINYLCHOLINE CHLORIDE 100 MG/5 ML SYR IV ONE (11:51)
[2018-05-31] MEDS ORDERED: fentaNYL (PF) 50 MCG/ML 2 ML AMP ONE (11:51)
[2018-05-31] MEDS ORDERED: GLYCOPYRROLATE 0.2 MG/ML 2 ML VIAL ONE (11:51)
[2018-05-31] MEDS ORDERED: MIDAZOLAM 2 MG/2 ML VIAL ONE (11:51)
[2018-05-31] MEDS ORDERED: PHENYLEPHRINE-0.9% NACL SYG 1 MG/10 ML SYRINGE ONE (11:51)
[2018-05-31] MEDS ORDERED: ROCURONIUM BROMIDE 10 MG/ML 10 ML VIAL IV ONE (11:51)
[2018-05-31] MEDS ORDERED: MORPHINE SULFATE 10 MG/ML SYRINGE ONE (11:51)
[2018-05-31] MEDS ORDERED: NEOSTIGMINE 1 MG/ML 10 ML VIAL ONE (11:51)
[2018-05-31] MEDS ORDERED: KETOROLAC 30 MG/ML 1 ML VIAL ONE (11:51)
[2018-05-31] MEDS ORDERED: BUPIVACAIN-EPI 0.25%-1:200,000 30 ML VIAL SQ ONE (12:12)
--- NOTE | 2018-05-31 12:28 | P.OP ---
Date of Procedure: 05/31/18 Preoperative Diagnosis: Cholecystitis Postoperative Diagnosis: Cholecystitis Procedure(s) Performed: Laparoscopic cholecystectomy Anesthesia: ELYSSA Surgeon: Víctor Burr Estimated Blood Loss (ml): 5 Pathology: other (Gallbladder) Condition: stable Disposition: PACU Description of Procedure: The patient was placed on the operating table. The patient received a general endotracheal tube anesthesia. The patients abdomen was prepped and draped in the usual sterile fashion. Through an infraumbilical stab incision, the fascia of the anterior abdominal wall was grasped with a pair of Kochers and then the Veress needle was placed in the peritoneal cavity. Position of the Veress needle was confirmed with positive drop test. The abdomen was then insufflated. After adequate insufflation, the 10 mm trocar was placed in the peritoneal cavity. Following this the laparoscope was placed in the peritoneal cavity. The patient was placed in the head-up, right side up position and then a 5 mm trocar was placed in the right lateral and right subcostal position under direct visualization. A 8 mm trocar was placed in the epigastric position. The gallbladder was grasped in the fundus and infundibulum. Traction on the gallbladder was placed in the lateral and the cephalad positions. The triangle of Calot was visualized.. The cystic duct was bluntly dissected until the union of the cystic duct and common bile duct was seen. The cystic duct was then divided and sealed with the Harmonic scissors. A PDS Endoloop was then placed throughout the cystic duct stump. The cystic artery divided and sealed with the Harmonic scissors. The gallbladder was then removed from the liver bed using Harmonic scissors. The gallbladder was then extracted through the epigastric port site. Operative field was checked for any bleeding spots and Harmonic scissors was used to coagulate the liver bed. The abdomen was irrigated. The trocars were removed. The skin was closed using interrupted 3-0 Vicryl suture. Dermabond dressing were applied. The patient tolerated the procedure well.
[2018-05-31] MEDS ORDERED: LACTATED RINGERS 1,000 ML IV ONE (12:40)
[2018-05-31] MEDS ORDERED: diphenhydrAMINE 50 MG/ML 1 ML VIAL IVP ONE (13:04)
--- NOTE | 2018-05-31 13:34 | P.PN ---
Subjective This is a pleasant 38 years old female with past medical history of Chiari malformation on Topamax for headache and she uses it infrequently for that reason. Presents because of abdominal pain associated with nausea and vomiting. Patient states that her problems started about 10 days ago, associated with recurrent nausea and vomiting several times that she went over the weekend to urgent care at that time they did ultrasound and x-ray as per patient and the gallbladder looked fine and asked her to follow up with her PCP and GI as an outpatient. Reaming actually initially she started feeling better and she went to see her PCP Dr. Talavera on about 4 days prior to admission when he recommended to do find a scan [done in the hospital on 2017] and asked her if her symptoms get worse to come to emergency room which got worse actually over the weekend again with more severe abdominal pain that woke her up from sleep. Patient describes the pain as epigastric radiating to the back feels Doppler/sharp together his oral intake when the patient was patent on the chicken broth. On admission her abdominal pain was 9/10 in severity, and down to 2/10 in severity. Associated with 3-4 who bowel movements on the loose side. Patient stated they were not diarrhea or watery but they were soft with a mucous. No blood last bowel movement was about 4 days ago. However she is currently passing gas and flatus. GI team were consulted already. I offered to do test for the patient. Patient declined. Risks benefits and alternatives are explained to the patient. Patient states her last menstrual period was on May 19-. No current vaginal discharge. No chest pain or dyspnea. No urinary signs and symptoms 05/31/2018 Patient abdominal pain nausea vomiting are improving, however HIDA scan was suspicious for a candidate the gallbladder. Patient is going for laparoscopic cholecystectomy today by the surgical team, as patient is complaining of from epigastric and right upper quadrant pain for about 2 weeks suspicious for chronic cholecystitis with ejection fraction about 16% with some biliary dysfunction as per surgery evaluation CONSTITUTIONAL: No fever, no malaise, no fatigue. HEENT: No recent visual problems or hearing problems. Denied any sore throat. CARDIOVASCULAR: No orthopnea, PND, no palpitations, no syncope. PULMONARY: No shortness of breath, no cough, no hemoptysis. GASTROINTESTINAL: No diarrhea, Normoactive bowel sounds. NEUROLOGICAL: No headaches, no weakness, no numbness. HEMATOLOGICAL: Denies any bleeding or petechiae. GENITOURINARY: Denies any burning micturition, frequency, or urgency. MUSCULOSKELETAL/RHEUMATOLOGICAL: Denies any joint pain, swelling, or any muscle pain. ENDOCRINE: Denies any polyuria or polydipsia. Medications reviewed and including amitriptyline, amlodipine, Dilaudid, Narcan, Zofran, Protonix, Zoloft, sodium chloride infusion, and Topamax, heparin, Objective - Vital Signs Vital signs: Vital Signs Temp 97.6 F 05/31/18 12:56 Pulse 75 05/31/18 13:15 Resp 14 05/31/18 13:15 BP 113/56 05/31/18 13:15 Pulse Ox 99 05/31/18 13:15 Intake & Output 05/30/18 05/31/18 05/31/18 18:59 06:59 18:59 Intake Total 487 240 300 Output Total 5 Balance 487 240 295 Weight 104.32 kg Intake: IV 300 Intake, IV Titration 487 Amount Sodium Chloride 0.9% 1, 487 000 ml @ 75 mls/hr IV . [id number] [facility] Rx#:[id number] Oral 240 Output: Estimated Blood Loss 5 Other: # Voids 1 - Exam GENERAL: The patient is alert and oriented x3, not in any acute distress. Well developed, well nourished. HEENT: Pupils are round and equally reacting to light. EOMI. No scleral icterus. No conjunctival pallor. Normocephalic, atraumatic. No pharyngeal erythema. No thyromegaly. CARDIOVASCULAR: S1 and S2 present. No murmurs, rubs, or gallops. PULMONARY: Chest is clear to auscultation, no wheezing or crackles. -ABDOMEN: Soft, epigastric tenderness, no rebound tenderness, nondistended, normoactive bowel sounds. No palpable organomegaly. CVA tenderness is absent on both sides MUSCULOSKELETAL: No joint swelling or deformity. EXTREMITIES: No cyanosis, clubbing, or pedal edema. NEUROLOGICAL: Gross neurological examination did not reveal any focal deficits. SKIN: No rashes. - Labs CBC & Chem 7: 05/30/18 07:04 05/31/18 06:51 Labs: Abnormal Lab Results - Last 24 Hours (Table) 10/02/18 Range/Units 06:51 Chloride 112 H (98-107) mmol/L Carbon Dioxide 21 L (22-30) mmol/L BUN 6 L (7-17) mg/dL AST 39 H (14-36) U/L ALT 65 H (9-52) U/L Assessment and Plan Assessment: Possible gastroenteritis with Nausea, vomiting of unclear etiology Dehydration History of Chiari malformation History of migrainous headache Plan: This is a pleasant 38 years old female who presents with gastroenteritis-like picture. Patient admitted with IV fluids, pain management. And nothing by mouth. Been evaluated by vocational auto body instructor. Pending HIDA scan as it is already recommended and scheduled by her PCP. I'll also surgical consult. Continue with the same medication. Continue with symptomatic treatment. Resume home medication. Monitor lytes and vitals. GI and DVT prophylaxis. And further recommendation the clinical course of the patient DVT prophylaxis:Heparin GI prophylaxis:Protonix Prognosis is guarded
[2018-05-31 15:49] LABS: Hepatitis A Antibody IgM Non-Reactive (Non-Reactive); Hepatitis C IgG Antibody Non-Reactive (Non-Reactive)
[2018-05-31] MEDS: amLODIPine 5 MG TAB PO SCH (20:40)
[2018-05-31] MEDS: TOPIRAMATE 25 MG TAB PO SCH (20:41)
[2018-05-31] MEDS: AMITRIPTYLINE HCL 25 MG TAB PO SCH (20:41)
[2018-05-31] MEDS: SERTRALINE 25 MG TAB PO SCH (20:41)
[2018-05-31] MEDS: HYDROmorphone 1 MG/ML 1 ML SYRINGE IVP PRN (22:44)
[2018-06-01] MEDS: SODIUM CHLORIDE 0.9% 1,000 ML IV SCH ×2 (01:08→11:13)
[2018-06-01] MEDS: ACETAMINOPHEN TAB 500 MG TAB PO PRN ×2 (05:20→11:12)
[2018-06-01 07:43] VITALS: BP 96/67; PULSE 70; RESP 18; TEMP 98.1
[2018-06-01] MEDS: HEPARIN SODIUM,PORCINE 5,000 UNIT/ML 1 ML VIAL SQ SCH (07:49)
[2018-06-01 08:05] LABS: ALT 53 U/L (9-52); AST 34 U/L (14-36); Albumin 3.2 g/dL (3.5-5.0); Alkaline Phosphatase 58 U/L (38-126); Anion Gap 9 mmol/L; Blood Urea Nitrogen 7 mg/dL (7-17); Calcium 8.8 mg/dL (8.4-10.2); Carbon Dioxide 21 mmol/L (22-30); Chloride 110 mmol/L (98-107); Glucose 80 mg/dL (74-99); Potassium 3.8 mmol/L (3.5-5.1); Sodium 140 mmol/L (137-145); Total Bilirubin 0.4 mg/dL (0.2-1.3); Total Protein 6.4 g/dL (6.3-8.2)
[2018-06-01] MEDS ORDERED: PANTOPRAZOLE 40 MG TABLET PO SCH (09:00)
--- NOTE | 2018-06-01 09:24 | P.PN ---
Subjective Progress Note Date: 06/01/18 38-year-old female seen and examined at bedside. Patient had been up ambulating in the hallway. Tolerating a diet pain medication effective for pain control "I feel much better after the surgery nausea gone appetite improving" surgical dressing site dry. Liver enzymes improve feeding Postop May 31 laparoscopic cholecystectomy for cholecystitis Objective - Vital Signs Vital signs: Vital Signs Temp 98.1 F 06/01/18 07:15 Pulse 70 06/01/18 07:15 Resp 18 06/01/18 07:15 BP 96/67 06/01/18 07:15 Pulse Ox 100 06/01/18 07:15 Intake & Output 05/31/18 06/01/18 06/01/18 18:59 06:59 18:59 Intake Total 740 240 Output Total 5 Balance 735 240 Intake: IV 500 Oral 240 240 Output: Estimated Blood Loss 5 Other: # Voids 1 2 - Exam Physical exam Pleasant 38-year-old female sitting up in bed appearing in no acute distress Lungs adequate air movement bilaterally on room air Heart S1-S2 audible regular Abdomen surgical dressing site dry soft nondistended active bowel tones surgical tenderness appropriate tolerating diet no nausea no vomiting no stool urinating no difficulty Extremities no edema bilaterally lower extremity - Labs CBC & Chem 7: 05/30/18 07:04 06/01/18 07:10 Labs: Abnormal Lab Results - Last 24 Hours (Table) 05/30/18 06/01/18 Range/Units 07:04 07:10 Chloride 110 H (98-107) mmol/L Carbon Dioxide 21 L (22-30) mmol/L ALT 53 H (9-52) U/L Albumin 3.2 L (3.5-5.0) g/dL Hep Bs Antibody Reactive H (Non-Reactive) Assessment and Plan Assessment: Impression 2 week history of epigastric right upper quadrant abdominal pain suspect due to cholecystitis Chronic constipation bowel movement every 8-9 days Mildly elevated AST and ALT HIDA scan suggestive of dyskinesia Postop May arthroscopic cholecystectomy for cholecystitis Plan Continue postop surgical care Pain control Diet as ordered From a surgical perspective appropriate to be discharged defer to the timing to the attending Will follow-up in outpatient setting with surgical service The above impression and plan of care have been discussed and directed by signing physician. Millicent Yates nurse practitioner acting as scribe for signing physician.
--- NOTE | 2018-06-01 16:56 | P.DS ---
Providers Date of admission: 05/29/18 18:45 Expected date of discharge: 06/01/18 Attending physician: Fam Vega Consults: 05/30/18 19:29 Consult Physician Routine Consulting Provider: Víctor Burr Consult Reason/Comments: abdominal pain Do you want consulting provider notified?: Yes Primary care physician: Taylor Talavera Hospital Course: Final Diagnoses: Status post laparoscopic cholecystectomy for suspected cholecystitis. HIDA scan reported dyskinesia. Dehydration History of Chiari malformation History of migrainous headache Hospital course:This is a pleasant 38 years old female with past medical history of Chiari malformation on Topamax for headache and she uses it infrequently for that reason. Presents because of abdominal pain associated with nausea and vomiting. Patient states that her problems started about 10 days ago, associated with recurrent nausea and vomiting several times that she went over the weekend to urgent care at that time they did ultrasound and x-ray as per patient and the gallbladder looked fine and asked her to follow up with her PCP and GI as an outpatient. Reaming actually initially she started feeling better and she went to see her PCP Dr. Talavera on about 4 days prior to admission when he recommended to do find a scan [done in the hospital on 05/30/2018] and asked her if her symptoms get worse to come to emergency room which got worse actually over the weekend again with more severe abdominal pain that woke her up from sleep. Patient describes the pain as epigastric radiating to the back feels Doppler/sharp together his oral intake when the patient was patent on the chicken broth. On admission her abdominal pain was 9/ 10 in severity, and down to 2/10 in severity. Associated with 3-4 who bowel movements on the loose side. Patient stated they were not diarrhea or watery but they were soft with a mucous. No blood last bowel movement was about 4 days ago. However she is currently passing gas and flatus. GI team were consulted already. I offered to do test for the patient. Patient declined. Risks benefits and alternatives are explained to the patient. Patient states her last menstrual period was on May 19-. No current vaginal discharge. No chest pain or dyspnea. No urinary signs and symptoms 05/31/2018 Patient abdominal pain nausea vomiting are improving, however HIDA scan was suspicious for a candidate the gallbladder. Patient is going for laparoscopic cholecystectomy today by the surgical team, as patient is complaining of from epigastric and right upper quadrant pain for about 2 weeks suspicious for chronic cholecystitis with ejection fraction about 16% with some biliary dysfunction as per surgery evaluation CONSTITUTIONAL: No fever, no malaise, no fatigue. HEENT: No recent visual problems or hearing problems. Denied any sore throat. CARDIOVASCULAR: No orthopnea, PND, no palpitations, no syncope. PULMONARY: No shortness of breath, no cough, no hemoptysis. GASTROINTESTINAL: No diarrhea, Normoactive bowel sounds. NEUROLOGICAL: No headaches, no weakness, no numbness. HEMATOLOGICAL: Denies any bleeding or petechiae. GENITOURINARY: Denies any burning micturition, frequency, or urgency. MUSCULOSKELETAL/RHEUMATOLOGICAL: Denies any joint pain, swelling, or any muscle pain. ENDOCRINE: Denies any polyuria or polydipsia. Medications reviewed and including amitriptyline, amlodipine, Dilaudid, Narcan, Zofran, Protonix, Zoloft, sodium chloride infusion, and Topamax, heparin, Status post laparoscopic cholecystectomy for cholecystitis. LFTs improving. Significant clinical improvement. Cleared By surgery for discharge. Patient is being discharged home in stable condition with guarded prognosis. GENERAL: The patient is alert and oriented x3, not in any acute distress. Well developed, well nourished. CARDIOVASCULAR: S1 and S2 present. No murmurs, rubs, or gallops. PULMONARY: Chest is clear to auscultation, no wheezing or crackles. -ABDOMEN: Soft, status post surgery, nondistended, positive bowel sounds NEUROLOGICAL: Gross neurological examination did not reveal any focal deficits. The impression and plan of care has been dictated as directed. : I performed a history and examination of this patient, discussed the same with the dictator. I agree with the dictator's note ,documented as a scribe. Any additional findings or plans will be noted. Time taken: 35 minutes Patient Condition at Discharge: Stable Plan - Discharge Summary Discharge Rx Participant: Yes New Discharge Prescriptions: New HYDROcodone/APAP 5-325MG [[place] 5-325] 1 tab PO Q6HR PRN 3 Days #12 tab PRN Reason: Mild Discomfort Docusate [Colace] 100 mg PO BID PRN #30 cap PRN Reason: Constipation Acetaminophen Tab [Tylenol] 500 mg PO Q6HR PRN tab PRN Reason: Fever And/ Or Pain Continue Topiramate [Topamax] 50 mg PO HS Sertraline [Zoloft] 25 mg PO HS Amitriptyline HCl [Elavil] 25 mg PO HS Discontinued Ibuprofen [Motrin Ib] 400 mg PO TID PRN PRN Reason: Pain Acetaminophen [Tylenol Extra Strength] 1,000 mg PO TID PRN PRN Reason: Pain Discharge Medication List Topiramate [Topamax] 50 mg PO HS 04/08/17 [History] Amitriptyline HCl [Elavil] 25 mg PO HS 03/04/18 [History] Sertraline [Zoloft] 25 mg PO HS 03/04/18 [History] Acetaminophen Tab [Tylenol] 500 mg PO Q6HR PRN tab 06/01/18 [Rx] Docusate [Colace] 100 mg PO BID PRN #30 cap 06/01/18 [Rx] HYDROcodone/APAP 5-325MG [[place] 5-325] 1 tab PO Q6HR PRN 3 Days #12 tab [Rx] Follow up Appointment(s)/Referral(s): [facility] [REFERRING] - 06/07/18 7:00 pm Víctor Burr MD [STAFF PHYSICIAN] - 06/07/18 4:25 pm Patient Instructions/Handouts: *Surgery [facility] - Scopalamine Patch Instructions, Laparoscopic Cholecystectomy (DC) Activity/Diet/Wound Care/Special Instructions: No tub bath for six weeks. Shower daily. No lifting over 10 pounds for the next 4 weeks. Use [id number] stool softeners for constipation as needed May use ice packs to surgical site. No driving while taking narcotic for pain. Diet: low Fiber Discharge Disposition: HOME SELF-CARE
== END 2018-06-01 14:08 | disposition home or self-care (01) ==
LOC: EC 15:56 → 3SUR 18:45
PROVIDERS: ADMIT Hospitalist; ATTEND Hospitalist
DX: R10.13 Epigastric pain (principal); R10.12 Left upper quadrant pain; R10.11 Right upper quadrant pain; R11.2 Nausea with vomiting, unspecified; E86.0 Dehydration; G24.9 Dystonia, unspecified; K81.1 Chronic cholecystitis; G93.5 Compression of brain; R74.8 Abnormal levels of other serum enzymes; K76.0 Fatty (change of) liver, not elsewhere classified; G43.909 Migraine, unspecified, not intractable, without status migrainosus; K59.09 Other constipation; R19.7 Diarrhea, unspecified; I49.8 Other specified cardiac arrhythmias; I73.00 Raynaud's syndrome without gangrene; Q07.00 Arnold-Chiari syndrome without spina bifida or hydrocephalus; Z87.891 Personal history of nicotine dependence; Z79.899 Other long term (current) drug therapy; Z88.8 Allergy status to other drugs, medicaments and biological substances; Z91.048 Other nonmedicinal substance allergy status; Z82.49 Family history of ischemic heart disease and other diseases of the circulatory system
CPT/HCPCS: 47562; 99285; 96374 ×2; 96375 ×3; 96361 ×5; 96376 ×5; 96372; 36415; 93005; 86803; 86709; 88304; 80053 ×4; 82150; 83690; 83735; 84484; 85025 ×2; 85610; 85730; 86706; 87340; 81003; 81025; 86704; 74177; 78227; G0378 ×4; A9537; J2250; J1200; J1644 ×3; J2710; J2270; J2405 ×3; J2805; J2001; J3010; J1885; J1170 ×4; J1100; J2370; J0330; J2704; C9113 ×3; Q9967

== ENCOUNTER 2018-06-04 13:16 | Emergency (ER) | payer BC ==
[2018-06-04 13:27] VITALS: BP 104/53; PULSE 97; RESP 18; TEMP 97.9
--- NOTE | 2018-06-04 13:51 | ED ---
Skin/Abscess/FB HPI - General Chief complaint: Skin/Abscess/Foreign Body Stated complaint: Allergic Reaction on Stomach Time Seen by Provider: 06/04/18 13:37 Source: patient, RN notes reviewed Mode of arrival: ambulatory Limitations: no limitations - History of Present Illness Initial comments: 38-year-old female with recent cholecystectomy on 05/31/[address] Edwige chakraborty. Pt has 4 1cm incisions covered with ahesive surgical tape. pt states she noticed itching, small blisters and irritation where she had contact with this tape. Patient states she has had previous reactions to skin adhesives in the past. She called Dr. Gibbons's office who stated that she could take up take off the tape. Patient states that she is unable to take the tape off due to pain with pulling the tape. She presented for removal of the [facility] today. Patient denies a fever, chills, erythema at the site of tape, or warmth to palpation. Remainder was negative. Upon arrival patient's vital signs within normal limits. Patient appears well. - Related Data Home Medications Medication Instructions Recorded Confirmed Topiramate [Topamax] 50 mg PO HS 04/08/17 05/30/18 Amitriptyline HCl [Elavil] 25 mg PO HS 03/04/18 05/30/18 Sertraline [Zoloft] 25 mg PO HS 03/04/18 05/30/18 Previous Rx's Medication Instructions Recorded Acetaminophen Tab [Tylenol] 500 mg PO Q6HR PRN tab 06/01/18 Docusate [Colace] 100 mg PO BID PRN #30 cap 06/01/18 HYDROcodone/APAP 5-325MG [[place] 1 tab PO Q6HR PRN 3 Days #12 tab 06/01/18 5-325] Allergies Allergy/AdvReac Type Severity Reaction Status Date / Time zonisamide [From Zonegran] Allergy Rash/Hives Verified 06/04/18 13:27 adhesive tape AdvReac Peels Skin Verified 06/04/18 13:27 cyclobenzaprine HCl AdvReac Confusion/E Verified 06/04/18 13:27 [From Flexeril] motional Review of Systems ROS Statement: Those systems with pertinent positive or pertinent negative responses have been documented in the HPI. ROS Other: All systems not noted in ROS Statement are negative. Constitutional: Denies: fever, chills, night sweats Respiratory: Denies: cough, dyspnea, wheezes Cardiovascular: Denies: chest pain, palpitations, dyspnea on exertion Gastrointestinal: Denies: abdominal pain, nausea, vomiting, diarrhea, constipation Genitourinary: Denies: urgency, dysuria Skin: Reports: as per HPI, rash (Blisters at site of contact with surgical tape) Neurological: Denies: headache, weakness, numbness, paresthesias, confusion Past Medical History Additional Past Medical History / Comment(s): POTS, arnold chiari, mariam History of Any Multi-Drug Resistant Organisms: None Reported Past Surgical History: Section, Cholecystectomy Additional Past Surgical History / Comment(s): chiari decompression, bilateral knee scope (1 on right, 3 on left), D&C Past Psychological History: No Psychological Hx Reported Smoking Status: Former smoker Past Alcohol Use History: Occasional Past Drug Use History: None Reported - Past Family History Father Family Medical History: Coronary Artery Disease (CAD) Mother Family Medical History: Hypertension General Exam - General Exam Comments Initial Comments: General: The patient is awake and alert, in no distress, and does not appear acutely ill. Eye: Pupils are equal, round, extra-ocular movements are intact. No nystagmus. There is normal conjunctiva bilaterally. No signs of icterus. Cardiovascular: There is a regular rate and rhythm. No murmur, rub or gallop is appreciated. Respiratory: Lungs are clear to auscultation, respirations are non-labored, breath sounds are equal. No wheezes, stridor, rales, or rhonchi. Musculoskeletal: Normal ROM, no tenderness. Strength 5/5. Sensation intact. Pulses equal bilaterally 2+. Neurological: A&O x 3. CN II-XII intact, There are no obvious motor or sensory deficits. Coordination appears grossly intact. Speech is normal. Skin: Skin is warm and dry and no rashes or lesions are noted. 4 incisions along the RUQ and through umbilicus- no signs of dehiscence, small beige bulla present intact over the edges of contact of tape with skin. No surrounding erythema, purulent drainage or warmth to palpation. Psychiatric: Cooperative, appropriate mood & affect, normal judgment. Limitations: no limitations Course Vital Signs 06/04/18 13:21 Temperature 97.9 F Pulse Rate 97 Respiratory 18 Rate Blood Pressure 104/53 O2 Sat by Pulse 100 Oximetry Medical Decision Making - Medical Decision Making No signs of dehiscence or secondary infection at the surgical sites. Tape was removed with rubbing alcohol and water. Patient tolerated this well. Steri- Strips were applied over the surgical sites, patient states that she has not had a reaction with these in the past. Pt was educated on signs and symptoms of infection as surgical sites. In addition patient was instructed to follow-up as scheduled with Dr. Gibbons on Wednesday patient agreed plan. Case discussed in detail with Dr. Hramon who agrees with impression and plan. This time feel patient is stable for discharge with follow-up as scheduled. Disposition Clinical Impression: Allergy to adhesive tape Disposition: HOME SELF-CARE Condition: Good Instructions: Steristrips (ED) Additional Instructions: Please use your prescribed medication as discussed. Please follow-up with family doctor in the next 2 days of symptoms have not improved. Please return to emergency room if the symptoms increase or worsen or for any other concerns, including redness or increasing pain at the surgical sites. Keep scheduled appointment Wednesday with Dr. Mcgarry Is patient prescribed a controlled substance at d/c from ED?: No Referrals: Taylor Talavera III, MD [Primary Care Provider] - 1-2 days Time of Disposition: 14:02
== END 2018-06-04 14:09 | disposition home or self-care (01) ==
LOC: EC 13:16
DX: T78.49XA Other allergy, initial encounter (principal); Z90.49 Acquired absence of other specified parts of digestive tract; Z91.048 Other nonmedicinal substance allergy status; Z88.8 Allergy status to other drugs, medicaments and biological substances; Z87.891 Personal history of nicotine dependence; Z79.899 Other long term (current) drug therapy
CPT/HCPCS: 99282

== ENCOUNTER 2018-07-21 19:39 | Emergency (ER) | payer BC ==
[2018-07-21 20:30] LABS: Basophils # (A) 0.1 k/uL (0-0.2); Basophils % (A) 1 %; Eosinophils # (A) 0.3 k/uL (0-0.7); Eosinophils % (A) 3 %; HGB 13.3 gm/dL (11.4-16.0); Lymphocytes # (A) 3.9 k/uL (1.0-4.8); Lymphocytes % (A) 37 %; MCH 28.6 pg (25.0-35.0); MCHC 33.4 g/dL (31.0-37.0); MCV 85.5 fL (80.0-100.0); Mean Platelet Volume 6.7; Monocytes # (A) 0.3 k/uL (0-1.0); Monocytes % (A) 3 %; Neutrophils # (A) 5.7 k/uL (1.3-7.7); Neutrophils % (A) 55 %; Platelet Count 312 k/uL (150-450); RBC 4.67 m/uL (3.80-5.40); RDW 13.8 % (11.5-15.5); WBC 10.4 k/uL (3.8-10.6)
[2018-07-21 20:40] LABS: Albumin 4.2 g/dL (3.5-5.0); Calcium 9.3 mg/dL (8.4-10.2); Potassium 3.9 mmol/L (3.5-5.1); Total Bilirubin 0.2 mg/dL (0.2-1.3); Total Protein 7.6 g/dL (6.3-8.2)
[2018-07-21 20:44] LABS: Prothrombin Time 9.8 sec (9.0-12.0)
[2018-07-21 20:45] LABS: Partial Thromboplastin Time 26.2 sec (22.0-30.0)
[2018-07-21] MEDS ORDERED: KETOROLAC 30 MG/ML 1 ML VIAL IM STA (21:14)
--- NOTE | 2018-07-21 22:00 | ED ---
ENT HPI - General Chief complaint: ENT Stated complaint: Nose bleed Time Seen by Provider: 07/21/18 20:11 Source: patient, family Mode of arrival: ambulatory Limitations: no limitations - History of Present Illness Initial comments: 38yo female with past medical history of Chiari malformation presenting today for chief complaint of nosebleed 2 days. Patient states that yesterday she had a nosebleed that lasts about 20 minutes, she states it was coming out of the right nares. Patient states that with pressure the bleeding subsided. She states it began after a bout of coughing. Today patient states that she was playing with her daughter whenbegan bleeding again, she states that is bleeding quite heavily lasting for about 15-20 minutes. Denies trauma. Patient states that she was told at one of her primary care provider appointments that she was anemic. She states that she was concerned that her hemoglobin was low given the amount of bleeding over the course of the psat 2 days. Pt states that the sight of blood made her "woozy" however that subsided. Upon arrival no active bleeding, pt appears well. VS stable. Upon ROS pt states she does have dull headache, however she states its dull and "nothing in comparison with my normal headache". Remainder of ROS (-) - Related Data Home Medications Medication Instructions Recorded Confirmed Topiramate [Topamax] 50 mg PO HS 04/08/17 05/30/18 Amitriptyline HCl [Elavil] 25 mg PO HS 03/04/18 05/30/18 Sertraline [Zoloft] 25 mg PO HS 03/04/18 05/30/18 Previous Rx's Medication Instructions Recorded Acetaminophen Tab [Tylenol] 500 mg PO Q6HR PRN tab 06/01/18 Docusate [Colace] 100 mg PO BID PRN #30 cap 06/01/18 HYDROcodone/APAP 5-325MG [[place] 1 tab PO Q6HR PRN 3 Days #12 tab 06/01/18 5-325] Allergies Allergy/AdvReac Type Severity Reaction Status Date / Time zonisamide [From Zonegran] Allergy Rash/Hives Verified 07/21/18 20:05 adhesive tape AdvReac Peels Skin Verified 07/21/18 20:05 cyclobenzaprine HCl AdvReac Confusion/E Verified 07/21/18 20:05 [From Flexeril] motional morphine AdvReac Itching Verified 07/21/18 20:06 Review of Systems ROS Statement: Those systems with pertinent positive or pertinent negative responses have been documented in the HPI. ROS Other: All systems not noted in ROS Statement are negative. Constitutional: Denies: fever, night sweats ENT: Reports: epistaxis. Denies: ear pain, throat pain Respiratory: Denies: cough, dyspnea, wheezes, hemoptysis, stridor Cardiovascular: Denies: chest pain, palpitations Gastrointestinal: Denies: abdominal pain, nausea, vomiting, diarrhea, constipation, hematemesis, melena Genitourinary: Denies: urgency, dysuria Musculoskeletal: Denies: back pain Skin: Denies: rash, lesions Neurological: Reports: headache. Denies: weakness, numbness, paresthesias, confusion, abnormal gait Psychiatric: Denies: anxiety, depression Past Medical History Additional Past Medical History / Comment(s): POTS, arnold chiari, mariam History of Any Multi-Drug Resistant Organisms: None Reported Past Surgical History: Section, Cholecystectomy Additional Past Surgical History / Comment(s): chiari decompression, bilateral knee scope (1 on right, 3 on left), D&C Past Psychological History: No Psychological Hx Reported Smoking Status: Former smoker Past Alcohol Use History: Occasional Past Drug Use History: None Reported - Past Family History Father Family Medical History: Coronary Artery Disease (CAD) Mother Family Medical History: Hypertension General Exam - General Exam Comments Initial Comments: General: The patient is awake and alert, in no distress, and does not appear acutely ill. Eye: Pupils are equal, round and reactive to light, extra-ocular movements are intact. No nystagmus. There is normal conjunctiva bilaterally. No signs of icterus. Ears, nose, mouth and throat: There are moist mucous membranes and no oral lesions. Normal exam of nares, no dried blood. Mucosa appears friable/dry. Mild localized bleeding with touching of mucosa. No hematoma. No posterior epistaxis upon evaluation of oropharnyx. Oropharynx was not erythematous, no tonsillar enlargement or lesions. Uvula midline. Neck: The neck is supple, there is no tenderness or JVD. Cardiovascular: There is a regular rate and rhythm. No murmur, rub or gallop is appreciated. Respiratory: Lungs are clear to auscultation, respirations are non-labored, breath sounds are equal. No wheezes, stridor, rales, or rhonchi. Gastrointestinal: Soft, non-distended, non-tender abdomen without masses or organomegaly noted. There is no rebound or guarding present. No CVA tenderness. Bowel sounds are unremarkable. Musculoskeletal: Normal ROM, no tenderness. Strength 5/5. Sensation intact. Pulses equal bilaterally 2+. Neurological: A&O x 3. CN II-XII intact, There are no obvious motor or sensory deficits. Coordination appears grossly intact. Speech is normal. Skin: Skin is warm and dry and no rashes or lesions are noted. Psychiatric: Cooperative, appropriate mood & affect, normal judgment. Limitations: no limitations Course Vital Signs 07/21/18 07/21/18 20:00 22:10 Temperature 98.3 F 98.7 F Pulse Rate 99 87 Respiratory 20 18 Rate Blood Pressure 109/78 114/87 O2 Sat by Pulse 100 98 Oximetry Medical Decision Making - Medical Decision Making She hemodynamically stable, hemoglobin within normal limits. No evidence of anemia. No active bleeding currently. Physical exam unremarkable. No posterior epistaxis. Blood pressure is elevated or hypotensive.Pt appears well. Patient does complain of dull headache, she states that she is not concerned in this is nothing in comparison with her normal migraines. No focal neurological deficits on exam. Patient is overall well-appearing. Patient given Toradol for pain management IM, she stated this helped significantly with headache almost completely resolving it. At this time patient states she is ready for discharge. I discussed the case with Dr. Schultz who agreed with impression and plan. Pt discharged in stable condition, prior to discharge return parameters were discussed at length patient verbalizes understanding. Patient is to follow-up with primary care provider one to 2 days. I recommended patient by humidifier as I think that the dry air is causing patient symptoms. - Lab Data Result diagrams: 07/21/18 20:25 07/21/18 20:25 Lab Results 07/21/18 07/21/18 07/21/18 Range/Units 20:25 20:25 20:25 WBC 10.4 (3.8-10.6) k/uL RBC 4.67 (3.80-5.40) m/uL Hgb 13.3 (11.4-16.0) gm/dL Hct 40.0 (34.0-46.0) % MCV 85.5 (80.0-100.0) fL MCH 28.6 (25.0-35.0) pg MCHC 33.4 (31.0-37.0) g/dL RDW 13.8 (11.5-15.5) % Plt Count 312 (150-450) k/uL Neutrophils % 55 % Lymphocytes % 37 % Monocytes % 3 % Eosinophils % 3 % Basophils % 1 % Neutrophils # 5.7 (1.3-7.7) k/uL Lymphocytes # 3.9 (1.0-4.8) k/uL Monocytes # 0.3 (0-1.0) k/uL Eosinophils # 0.3 (0-0.7) k/uL Basophils # 0.1 (0-0.2) k/uL PT 9.8 (9.0-12.0) sec INR 1.0 (<1.2) APTT 26.2 (22.0-30.0) sec Sodium 140 (137-145) mmol/L Potassium 3.9 (3.5-5.1) mmol/L Chloride 109 H (98-107) mmol/L Carbon Dioxide 20 L (22-30) mmol/L Anion Gap 11 mmol/L BUN 14 (7-17) mg/dL Creatinine 1.08 H (0.52-1.04) mg/dL Est GFR (CKD-EPI)AfAm 76 (>60 ml/min/1.73 sqM) Est GFR (CKD-EPI)NonAf 66 (>60 ml/min/1.73 sqM) Glucose 82 (74-99) mg/dL Calcium 9.3 (8.4-10.2) mg/dL Total Bilirubin 0.2 (0.2-1.3) mg/dL AST 20 (14-36) U/L ALT 25 (9-52) U/L Alkaline Phosphatase 83 (38-126) U/L Total Protein 7.6 (6.3-8.2) g/dL Albumin 4.2 (3.5-5.0) g/dL Disposition Clinical Impression: Nosebleed, symptom, Headache Disposition: HOME SELF-CARE Condition: Good Instructions: Nosebleed (ED) Additional Instructions: Please use medication as discussed. Please follow-up with family doctor in the next 2 days of symptoms. Please return to emergency room if the symptoms increase or worsen or for any other concerns, as discussed. Is patient prescribed a controlled substance at d/c from ED?: No Referrals: Taylor Talavera III, MD [Primary Care Provider] - 1-2 days Time of Disposition: 22:00
[2018-07-21 22:12] VITALS: BP 114/87; PULSE 87; RESP 18; TEMP 98.7
== END 2018-07-21 22:11 | disposition home or self-care (01) ==
LOC: EC 19:39
DX: R04.0 Epistaxis (principal); R51 Headache; Z87.891 Personal history of nicotine dependence; Z88.5 Allergy status to narcotic agent; Z88.8 Allergy status to other drugs, medicaments and biological substances; Z91.048 Other nonmedicinal substance allergy status; Z79.899 Other long term (current) drug therapy; Z87.728 Personal history of other specified (corrected) congenital malformations of nervous system and sense organs
CPT/HCPCS: 36415; 80053; 85025; 85610; 85730; 99283; 96372; J1885

== ENCOUNTER → 2019-01-10 | Outpatient (CLI) | payer BC ==
[2019-01-10 14:56] VITALS: BP 116/73; PULSE 52; RESP 18; TEMP 98.2; BMI 36.1
--- NOTE | 2019-01-10 16:09 | P.HPOB ---
History of Present Illness H&P Date: 01/10/19 Chief Complaint: The patient is here for her routine gynecologic exam and ma mmogram. This is a 38-year-old within LMP of 01/07/2019. The patient is here to establish with this office. She states that is been about 3 or 4 years since her last pelvic exam. She uses condoms for control. The patient states about 1 year ago she noticed a slight lump in the left breast and brought this up to her primary caregiver who felt that this was a benign finding with similar findings in the opposite breast. About 2 months ago, she noticed the left breast had a more prominent lump and felt more dense in this area. She states the lump feels like the size of a popcorn kernel and has been very tender. She denies nipple discharge or trauma to the breast. She is otherwise without complaints. Her menstrual periods are regular every month and lasting about 3 days. Review of Systems She believes she has gained about 20 pounds over the last year. She attributes this to stress eating and decreased activity. She denies respiratory or cardiac problems. G.I.: occasional constipation. 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 Her 1st was complicated by eclampsia requiring a 34 week delivery by C- section. History of Any Multi-Drug Resistant Organisms: None Reported Past Surgical History: Section, Cholecystectomy Additional Past Surgical History / Comment(s): chiari decompression(head/brain), bilateral knee scope (1 on right, 3 on left), D&C. Past Psychological History: No Psychological Hx Reported Smoking Status: Former smoker Past Alcohol Use History: Occasional (4 per week) Past Drug Use History: None Reported Additional History: Quit smoking as a teenager. 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 - Past Family History Father Family Medical History: Unable to Obtain Mother Family Medical History: Hypertension Additional Family Medical History / Comment(s): Maternal grandparents both had diabetes. Medications and Allergies Home Medications Medication Instructions Recorded Confirmed Type Acetaminophen Tab [Tylenol] 500 mg PO Q6HR PRN tab 06/01/18 01/10/19 Rx Multivit with Calcium,Iron,Min 1 each PO DAILY 01/10/19 01/10/19 History [Women's Multivitamin] Allergies Allergy/AdvReac Type Severity Reaction Status Date / Time zonisamide [From Zonegran] Allergy Rash/Hives Verified 01/10/19 14:51 adhesive tape AdvReac Peels Skin Verified 01/10/19 14:51 cyclobenzaprine HCl AdvReac Confusion/E Verified 01/10/19 14:51 [From Flexeril] motional morphine AdvReac Itching Verified 01/10/19 14:51 Exam Vital Signs Temp Pulse Resp BP Pulse Ox 01/10/19 14:52 98.2 F 52 L 18 116/73 100 Intake and Output 01/10/19 01/10/19 01/10/19 06:59 14:59 22:59 Other: Weight 107.955 kg Height 5'8", weight 238 pounds, BMI 36.2. This is a well-developed well-nourished heavyset white female who is alert and oriented times 3 in no acute distress. HEENT: Within normal limits. NECK: Supple without mass or thyromegaly. CHEST AND LUNGS: Clear to auscultation. HEART: Regular rate and rhythm. BREASTS: there is a palpable breast mass had approximately 1 to 2 o'clock position of the left breasts measuring 1.0 x 1.5 cm. This is rubbery inconsistency and fairly deep within the breast. It is approximately 4 cm from the areola and slightly irregular in shape. This area is mildly tender. There is no nipple discharge. There are no other palpable breast masses. AXILLARY EXAM: Negative for adenopathy. BACK: Negative for CVA tenderness. ABDOMEN: Soft, nontender, without palpable masses. PELVIC EXAM: Normal external genitalia. Cervix and vagina appear normal. There is no unusual discharge. There is no evidence of prolapse. The uterus is midposition, nongravid size and nontender. There are no palpable adnexal masses or tenderness. RECTAL EXAM: negative for mass or tenderness and is negative for occult blood. EXTREMITIES: Nontender. IMPRESSION: 1. 38-year-old female with normal gynecologic exam. 2. Left breast mass measuring 1.0 x 1.5 cm at the 1 to 2 o'clock position. Differential diagnosis will include fibrocystic changes, prominent milk gland, and less likely, malignancy. PLAN: 1. Pap smear was performed. 2. Self breast awareness was discussed with the patient. 3. Baseline diagnostic bilateral mammograms with left breast ultrasound. A marker was placed over the breast lump in question. 4. We have discussed other options for control. She will continue using condoms at this time. If she is done having children, vasectomy for tubal sterilization can be considered. 5. She states she has tried to cut back on caffeine intake and I think this is a good idea since it may make the breasts more sensitive. 6. If the findings are benign, I recommended that she avoid pushing on this area during the next few weeks to see if this helps with the soreness. 7.She was advised to return in one year for her annual well woman exam.
--- NOTE | 2019-01-11 08:28 | MM ---
Reason for exam: additional evaluation requested from prior study. Physical Findings: Nurse Summary: 1.0 x 1.5cm nodule in the left breast at 1-2 o'clock (Dr. Stewart). MG 3D Diag Mammo W/Cad SHASHANK Bilateral CC and MLO view(s) were taken. There are scattered fibroglandular densities. Centrally located focal asymmetry upper outer quadrant left breast does not persist on 3D. Tiny 5mm circumscribed isodense 5mm nodule at 8 o'clock. These results were verbally communicated with the patient and result sheet given to the patient on 01/10/19. ASSESSMENT: Incomplete: need additional imaging evaluation, BI-RAD 0 RECOMMENDATION: Ultrasound of both breasts. (right 8 o'clock, left upper outer quadrant)
--- NOTE | 2019-01-11 08:35 | USB ---
Reason for exam: additional evaluation requested from abnormal screening. US Breast Limited BILAT Right limited breast ultrasound including focal area of concern, retroareolar and axilla demonstrates no cystic or solid lesion seen. Scanned 6-9 o'clock, no solid or cystic lesion, 6 month follow mammogram for probably tiny cyst. Left limited breast ultrasound including focal area of concern, retroareolar and axilla demonstrates no cystic or solid lesion seen. Scanned 12-3 o'clock, no solid or cystic lesion. Dense tissue at the palpable site. These results were verbally communicated with the patient and result sheet given to the patient on 01/10/19. ASSESSMENT: Probably benign, BI-RAD 3 RECOMMENDATION: Follow-up diagnostic mammogram of the right breast in 6 months. Manage on a clinical basis with regard to any suspicious palpable areas.
== END | disposition home or self-care (01) ==
LOC: WWCWWP 14:23
PROVIDERS: ATTEND Obstetrics & Gynecology
DX: R92.8 Other abnormal and inconclusive findings on diagnostic imaging of breast (principal)
CPT/HCPCS: 77062; 77066

== ENCOUNTER 2019-06-08 21:30 | Emergency (ER) | payer BC ==
[2019-06-08 22:00] LABS: Basophils # (A) 0.1 k/uL (0-0.2); Basophils % (A) 1 %; Eosinophils # (A) 0.2 k/uL (0-0.7); Eosinophils % (A) 2 %; HCT 40.7 % (34.0-46.0); HGB 13.9 gm/dL (11.4-16.0); Lymphocytes # (A) 4.1 k/uL (1.0-4.8); Lymphocytes % (A) 36 %; MCH 29.8 pg (25.0-35.0); MCHC 34.3 g/dL (31.0-37.0); MCV 86.9 fL (80.0-100.0); Mean Platelet Volume 6.3; Monocytes # (A) 0.4 k/uL (0-1.0); Monocytes % (A) 4 %; Neutrophils # (A) 6.4 k/uL (1.3-7.7); Neutrophils % (A) 56 %; Platelet Count 336 k/uL (150-450); RBC 4.68 m/uL (3.80-5.40); RDW 12.7 % (11.5-15.5); WBC 11.4 k/uL (3.8-10.6)
[2019-06-08 22:10] LABS: Albumin 4.3 g/dL (3.5-5.0); Calcium 9.2 mg/dL (8.4-10.2); Potassium 4.1 mmol/L (3.5-5.1); Total Bilirubin 0.4 mg/dL (0.2-1.3); Total Protein 7.7 g/dL (6.3-8.2)
[2019-06-08 22:19] LABS: Partial Thromboplastin Time 28.9 sec (22.0-30.0); Prothrombin Time 10.4 sec (9.0-12.0)
--- NOTE | 2019-06-08 22:24 | ED ---
Arrhythmia/Palpitations HPI - General Chief Complaint: Arrhythmia/Palpitations Stated Complaint: CHEST FLUTTER/SOB Time Seen by Provider: 06/08/19 22:03 Source: patient Mode of arrival: ambulatory Limitations: no limitations - History of Present Illness Initial Comments: This patient is a 39-year-old woman who presents to be evaluated for a fluttering feeling of her heart. Patient states this is been going on for 2 days now. She states that it comes irregularly. When the sensation does come on, she feels like she needs to cough and then when she does so she feels like the symptoms go away. She has not had chest pain, diaphoresis, dyspnea, ligh theadedness or syncope. The patient states that she called her physician's office about this and left a message, when they called her back tonight she was advised to go to the emergency department. MD Complaint: irregular heart beat Onset/Timin -: days(s) Context: occurred during rest Associated Symptoms: cough - Related Data Home Medications Medication Instructions Recorded Confirmed Gabapentin 600 mg PO BID 06/08/19 06/08/19 Allergies Allergy/AdvReac Type Severity Reaction Status Date / Time zonisamide [From Zonegran] Allergy Rash/Hives Verified 06/08/19 23:15 adhesive tape AdvReac Peels Skin Verified 06/08/19 23:15 cyclobenzaprine HCl AdvReac Confusion/E Verified 06/08/19 23:15 [From Flexeril] motional morphine AdvReac Itching Verified 06/08/19 23:15 Review of Systems ROS Statement: Those systems with pertinent positive or pertinent negative responses have been documented in the HPI. ROS Other: All systems not noted in ROS Statement are negative. Constitutional: Denies: fever, chills Respiratory: Denies: cough, dyspnea Cardiovascular: Reports: palpitations. Denies: chest pain, dyspnea on exertion, edema, syncope Gastrointestinal: Reports: constipation (Chronic). 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 Her 1st was complicated by eclampsia requiring a 34 week delivery by C- section. History of Any Multi-Drug Resistant Organisms: None Reported Past Surgical History: Section, Cholecystectomy Additional Past Surgical History / Comment(s): chiari decompression(head/brain), bilateral knee scope (1 on right, 3 on left), D&C. Past Psychological History: No Psychological Hx Reported Smoking Status: Former smoker Past Alcohol Use History: Occasional Past Drug Use History: None Reported - Past Family History Father Family Medical History: Unable to Obtain Mother Family Medical History: Hypertension Additional Family Medical History / Comment(s): Maternal grandparents both had diabetes. General Exam Limitations: no limitations General appearance: alert, in no apparent distress Head exam: Present: atraumatic, normocephalic Eye exam: Present: normal appearance. Absent: scleral icterus, conjunctival injection ENT exam: Present: normal oropharynx Respiratory exam: Present: normal lung sounds bilaterally. Absent: respiratory distress, wheezes, rales, rhonchi, stridor Cardiovascular Exam: Present: regular rate, normal rhythm, normal heart sounds. Absent: systolic murmur, diastolic murmur, rubs, gallop GI/Abdominal exam: Present: soft. Absent: distended, tenderness, guarding, rebound, rigid, mass Extremities exam: Present: normal inspection, normal capillary refill. Absent: pedal edema, calf tenderness Back exam: Present: normal inspection. Absent: CVA tenderness (R), CVA tenderness (L) Neurological exam: Present: alert Skin exam: Present: warm, dry, intact, normal color. Absent: rash Course Vital Signs 06/08/19 06/08/19 06/08/19 21:34 22:24 23:18 Temperature 98.0 F Pulse Rate 69 71 70 Respiratory 16 16 18 Rate Blood Pressure 105/58 131/63 117/61 O2 Sat by Pulse 100 100 100 Oximetry EKG Findings - EKG Results: EKG: interpreted by MAGDALENE ABEL, sinus rhythm (Rate 75 bpm), normal axis, normal QRS, normal ST/T, no acute changes - RI, Pacemaker, Normal: Normal tracing: normal tracing Medical Decision Making - Lab Data Result diagrams: 06/08/19 21:47 06/08/19 21:47 Lab Results 06/08/19 06/08/19 06/08/19 Range/Units 21:47 21:47 21:47 WBC 11.4 H (3.8-10.6) k/uL RBC 4.68 (3.80-5.40) m/uL Hgb 13.9 (11.4-16.0) gm/dL Hct 40.7 (34.0-46.0) % MCV 86.9 (80.0-100.0) fL MCH 29.8 (25.0-35.0) pg MCHC 34.3 (31.0-37.0) g/dL RDW 12.7 (11.5-15.5) % Plt Count 336 (150-450) k/uL Neutrophils % 56 % Lymphocytes % 36 % Monocytes % 4 % Eosinophils % 2 % Basophils % 1 % Neutrophils # 6.4 (1.3-7.7) k/uL Lymphocytes # 4.1 (1.0-4.8) k/uL Monocytes # 0.4 (0-1.0) k/uL Eosinophils # 0.2 (0-0.7) k/uL Basophils # 0.1 (0-0.2) k/uL PT 10.4 (9.0-12.0) sec INR 1.0 (<1.2) APTT 28.9 (22.0-30.0) sec Sodium 138 (137-145) mmol/L Potassium 4.1 (3.5-5.1) mmol/L Chloride 102 (98-107) mmol/L Carbon Dioxide 26 (22-30) mmol/L Anion Gap 10 mmol/L BUN 21 H (7-17) mg/dL Creatinine 1.25 H (0.52-1.04) mg/dL Est GFR (CKD-EPI)AfAm 63 (>60 ml/min/1.73 sqM) Est GFR (CKD-EPI)NonAf 55 (>60 ml/min/1.73 sqM) Glucose 91 (74-99) mg/dL Calcium 9.2 (8.4-10.2) mg/dL Total Bilirubin 0.4 (0.2-1.3) mg/dL AST 19 (14-36) U/L ALT 17 (9-52) U/L Alkaline Phosphatase 69 (38-126) U/L Troponin I (0.000-0.034) ng/mL Total Protein 7.7 (6.3-8.2) g/dL Albumin 4.3 (3.5-5.0) g/dL 06/08/19 Range/Units 21:47 WBC (3.8-10.6) k/uL RBC (3.80-5.40) m/uL Hgb (11.4-16.0) gm/dL Hct (34.0-46.0) % MCV (80.0-100.0) fL MCH (25.0-35.0) pg MCHC (31.0-37.0) g/dL RDW (11.5-15.5) % Plt Count (150-450) k/uL Neutrophils % % Lymphocytes % % Monocytes % % Eosinophils % % Basophils % % Neutrophils # (1.3-7.7) k/uL Lymphocytes # (1.0-4.8) k/uL Monocytes # (0-1.0) k/uL Eosinophils # (0-0.7) k/uL Basophils # (0-0.2) k/uL PT (9.0-12.0) sec INR (<1.2) APTT (22.0-30.0) sec Sodium (137-145) mmol/L Potassium (3.5-5.1) mmol/L Chloride (98-107) mmol/L Carbon Dioxide (22-30) mmol/L Anion Gap mmol/L BUN (7-17) mg/dL Creatinine (0.52-1.04) mg/dL Est GFR (CKD-EPI)AfAm (>60 ml/min/1.73 sqM) Est GFR (CKD-EPI)NonAf (>60 ml/min/1.73 sqM) Glucose (74-99) mg/dL Calcium (8.4-10.2) mg/dL Total Bilirubin (0.2-1.3) mg/dL AST (14-36) U/L ALT (9-52) U/L Alkaline Phosphatase (38-126) U/L Troponin I <0.012 (0.000-0.034) ng/mL Total Protein (6.3-8.2) g/dL Albumin (3.5-5.0) g/dL Disposition Clinical Impression: Palpitations Disposition: HOME SELF-CARE Condition: Good Instructions (If sedation given, give patient instructions): Heart Palpitations (ED) Is patient prescribed a controlled substance at d/c from ED?: No Referrals: Taylor Talavera III, MD [Primary Care Provider] - 1-2 days Chetan Nation MD [STAFF PHYSICIAN] - 1-2 days
[2019-06-08] MEDS ORDERED: SODIUM CHLORIDE 0.9% 1,000 ML IV ONE (23:01)
[2019-06-08 23:19] VITALS: RESP 18
[2019-06-09 00:41] VITALS: BP 124/67; PULSE 68; TEMP 98.3
== END 2019-06-09 00:40 | disposition home or self-care (01) ==
LOC: EC 21:30
DX: R00.2 Palpitations (principal); R06.02 Shortness of breath; R05 Cough; Z79.899 Other long term (current) drug therapy; Z88.2 Allergy status to sulfonamides; Z88.5 Allergy status to narcotic agent; Z88.8 Allergy status to other drugs, medicaments and biological substances; Z91.048 Other nonmedicinal substance allergy status; Z87.891 Personal history of nicotine dependence
CPT/HCPCS: 36415; 80053; 84443; 84484; 85025; 85610; 85730; 93005; 96360; 99285

== ENCOUNTER → 2019-06-22 | Outpatient (CLI) | payer BC ==
--- NOTE | 2019-07-04 12:44 | EM ---
EVENT MONITOR There were several transmissions, some of them were when patient felt skipped beats and irregular sensation and a fluttering feeling. Almost all these transmissions seemed to be unremarkable sinus rhythm or sinus tachycardia. When patient felt some fluttering or a skipped heartbeat, this was all sinus mechanism. There was no significant arrhythmia on this 7 day event monitor. FINAL IMPRESSION: Unremarkable seven-day event monitor. When patient felt fluttering sensation or palpitation, she was in a sinus rhythm or sinus tachycardia. MMODL / IJN: [id number] /
== END | disposition home or self-care (01) ==
LOC: RADECHMAIN 12:31
PROVIDERS: ATTEND Family Medicine
DX: R00.2 Palpitations (principal)
CPT/HCPCS: 93270

== ENCOUNTER → 2019-07-03 | Outpatient (CLI) | payer BC ==
--- NOTE | 2019-07-04 10:31 | ECHOF ---
Referral Reason:R01.1 Cardiac Murmur MEASUREMENTS -------- HEIGHT: 174.0 cm WEIGHT: 108.9 kg BP: 134/61 RVIDd: 2.9 cm (< 3.3) IVSd: 1.1 cm (0.6 - 1.1) LVIDd: 4.1 cm (3.9 - 5.3) LVPWd: 1.0 cm (0.6 - 1.1) IVSs: 1.3 cm LVIDs: 2.9 cm LVPWs: 1.4 cm LA Diam: 3.4 cm (2.7 - 3.8) LAESV Index (A-L): 18.63 ml/m Ao Diam: 2.8 cm (2.0 - 3.7) AV Cusp: 2.1 cm (1.5 - 2.6) MV EXCURSION: 17.766 mm (> 18.000) MV EF SLOPE: 149 mm/s (70 - 150) EPSS: 0.4 cm MV E Vikram: 0.79 m/s MV DecT: 176 ms MV A Vikram: 0.47 m/s MV E/A Ratio: 1.69 RAP: 5.00 mmHg RVSP: 19.91 mmHg FINDINGS -------- Sinus rhythm. This was a technically good study. The left ventricular size is normal. There is borderline concentric left ventricular hypertrophy. Overall left ventricular systolic function is normal with, an EF between 60 - 65 %. The diastolic filling pattern is normal for the age of the patient 6.15. The right ventricle is normal in size. Normal LA size by volume 22+/-6 ml/m2. The right atrium is normal in size. Interatrial and interventricular septum intact. The aortic valve is trileaflet and appears structurally normal. The mitral valve is normal. Trace tricuspid regurgitation present. Right ventricular systolic pressure is normal at < 35 mmHg. The aortic root size is normal. Normal inferior vena cava with normal inspiratory collapse consistent with estimated right atrial pre ssure of 5 mmHg. There is no pericardial effusion. CONCLUSIONS -------- 1. Sinus rhythm. 2. This was a technically good study. 3. The left ventricular size is normal. 4. There is borderline concentric left ventricular hypertrophy. 5. Overall left ventricular systolic function is normal with, an EF between 60 - 65 %. 6. The diastolic filling pattern is normal for the age of the patient 6.15 7. The right ventricle is normal in size. 8. Normal LA size by volume 22+/-6 ml/m2. 9. The right atrium is normal in size. 10. Interatrial and interventricular septum intact. 11. The aortic valve is trileaflet and appears structurally normal. 12. The mitral valve is normal. 13. Trace tricuspid regurgitation present. 14. Right ventricular systolic pressure is normal at < 35 mmHg. 15. The aortic root size is normal. 16. Normal inferior vena cava with normal inspiratory collapse consistent with estimated right atrial pressure of 5 mmHg. 17. There is no pericardial effusion. 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
== END | disposition home or self-care (01) ==
LOC: RADECHMAIN 08:15
PROVIDERS: ATTEND Family Medicine
DX: R01.1 Cardiac murmur, unspecified (principal)
CPT/HCPCS: 93306

== ENCOUNTER → 2020-07-31 | Outpatient (CLI) | payer BC ==
--- NOTE | 2020-07-31 07:58 | MM ---
Reason for exam: additional evaluation requested from prior study. Last mammogram was performed 1 year and 7 months ago. Physical Findings: Nurse did not find any significant physical abnormalities on exam. MG 3D Diag Mammo W/Cad SHASHANK Bilateral CC and MLO view(s) were taken. Prior study comparison: January 10, 2019, bilateral MG 3d diag mammo w/cad SHASHANK. There are scattered fibroglandular densities. No significant new findings when compared with previous films. These results were verbally communicated with the patient and result sheet given to the patient on 07/31/20. ASSESSMENT: Benign, BI-RAD 2 RECOMMENDATION: Routine screening mammogram of both breasts in 1 year. Manage patient on a clinical basis.
[2020-07-31 08:02] VITALS: BP 115/82; PULSE 94; RESP 16; TEMP 98.3
--- NOTE | 2020-07-31 09:17 | P.HPOB ---
History of Present Illness H&P Date: 07/31/20 Chief Complaint: The patient is here for her routine gynecologic exam and ma mmogram. This is a 40-year-old with an LMP of 07/09/2020. She has been using condoms for control. She is complaining of some vaginal dryness with sexual activity and this is relatively new for her. She is otherwise without complaints. Menses are regular every month and have been lasting about 3 days. Review of Systems She has lost about 8 pounds over the past year. She denies respiratory or cardiac problems. GI: Intermittent constipation. 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 Her 1st was complicated by eclampsia requiring a 34 week delivery by C- section. History of Any Multi-Drug Resistant Organisms: None Reported Past Surgical History: Section, Cholecystectomy Additional Past Surgical History / Comment(s): chiari decompression(head/brain), bilateral knee scope (1 on right, 3 on left), D&C. Past Psychological History: No Psychological Hx Reported Smoking Status: Former smoker Past Alcohol Use History: Occasional Additional Past Alcohol Use History / Comment(s): Quit smoking as a teenager. 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 - Past Family History Father Family Medical History: Unable to Obtain Mother Family Medical History: Hypertension Additional Family Medical History / Comment(s): Maternal grandparents both had diabetes. Medications and Allergies Home Medications Medication Instructions Recorded Confirmed Type Gabapentin 600 mg PO BID 06/08/19 07/31/20 History Minocycline HCl [Minocin] 100 mg PO DAILY 07/31/20 07/31/20 History Multivitamin [Multivitamins Adult 1 each PO DAILY 07/31/20 07/31/20 History Gummies] Topiramate [Topamax] 100 mg PO DAILY 07/31/20 07/31/20 History Allergies Allergy/AdvReac Type Severity Reaction Status Date / Time zonisamide [From Zonegran] Allergy Rash/Hives Verified 07/31/20 07:53 adhesive tape AdvReac Peels Skin Verified 07/31/20 07:53 cyclobenzaprine HCl AdvReac Confusion/E Verified 07/31/20 07:53 [From Flexeril] motional morphine AdvReac Itching Verified 07/31/20 07:53 Exam Vital Signs Temp Pulse Resp BP Pulse Ox 07/31/20 07:54 98.3 F 94 16 115/82 100 Intake and Output 07/30/20 07/31/20 07/31/20 22:59 06:59 14:59 Other: Weight 104.326 kg Height 5 feet 9 inches, weight 230 pounds, BMI 34.0. This is a well-developed well-nourished white female who is alert and oriented times 3 in no acute distress. HEENT: Within normal limits. NECK: Supple without mass or thyromegaly. CHEST AND LUNGS: Clear to auscultation. HEART: Regular rate and rhythm. BREASTS: Are without mass or discharge. AXILLARY EXAM: Negative for adenopathy. BACK: Negative for CVA tenderness. ABDOMEN: Soft, nontender, without palpable masses. PELVIC EXAM: Normal external genitalia. Cervix and vagina appear normal. There is no unusual discharge. There is no evidence of prolapse. The uterus is midposition, nongravid size and nontender. There are no palpable adnexal masses or tenderness. RECTAL EXAM: negative for mass or tenderness. EXTREMITIES: Nontender. IMPRESSION: 1. 40-year-old perimenopausal female with normal gynecologic exam. 2. Vaginal dryness with sexual intercourse with no significant physical findings at this time. 3. Previous ASCUS Pap smear with negative high-risk HPV testing on 01/10/2019. PLAN: 1. Pap smear was deferred and we will plan on repeating Pap smear cotest in in one year. 2. Self breast awareness was discussed with the patient. 3. Diagnostic mammogram on both sides was due and this was done today. The preliminary result is benign. 4. Osteoporosis prevention was discussed. I have stressed the importance of adequate calcium, vitamin D and regular exercise. Recommended amounts of calcium and vitamin D were also discussed. 5. She was advised to return in one year for her annual well woman exam.
== END | disposition home or self-care (01) ==
LOC: RADMAMWWP 07:08
PROVIDERS: ATTEND Obstetrics & Gynecology
DX: R92.8 Other abnormal and inconclusive findings on diagnostic imaging of breast (principal)
CPT/HCPCS: 77062; 77066

== ENCOUNTER 2020-12-22 13:59 | Emergency (ER) | payer BC ==
[2020-12-22 14:07] VITALS: TEMP 97.7
--- NOTE | 2020-12-22 14:09 | ED ---
Chest Pain HPI - General Source: patient Mode of arrival: ambulatory Limitations: no limitations <Reese Roberto - Last Filed: 12/22/20 18:55> <Boni Schultz Rachel - Last Filed: 12/22/20 20:28> - General Chief Complaint: Chest Pain Stated Complaint: Pain in jaw,arm, shoulder Time Seen by Provider: 12/22/20 14:08 - History of Present Illness Initial Comments: 40-year-old female with history of chiari malformation and pots presenting to the emergency department with a chief complaint of neck and chest pain. Patient reports this began around 11:00 as she was getting ready for work. Patient reports initially started in her right arm and moved proximally to the shoulder and now radiating to the right side of the chest. Patient reports the pain is appreciable to palpation and feels sharp. Patient reports similar pain is also going into the right side of the neck and jaw. Patient states she felt lighth eaded but not dizzy. She did report having diaphoretic episodes over the last 2 days. Denies any associated shortness of breath. She denies any history of hypertension, dyslipidemia, smoking. Reports her brother had a myocardial infarction at the age of 50. (Reese Roberto) - Related Data Home Medications Medication Instructions Recorded Confirmed Minocycline HCl [Minocin] 100 mg PO DAILY 07/31/20 12/22/20 Multivitamin [Multivitamins Adult 1 tab PO DAILY 07/31/20 12/22/20 Gummies] Topiramate [Topamax] 100 mg PO HS 07/31/20 12/22/20 Gabapentin [Neurontin] 300 mg PO QID 12/22/20 12/22/20 Allergies Allergy/AdvReac Type Severity Reaction Status Date / Time zonisamide [From Zonegran] Allergy Rash/Hives Verified 12/22/20 14:07 adhesive tape AdvReac Peels Skin Verified 12/22/20 14:07 cyclobenzaprine HCl AdvReac Confusion/E Verified 12/22/20 14:07 [From Flexeril] motional morphine AdvReac Itching Verified 12/22/20 14:07 Review of Systems ROS Other: All systems not noted in ROS Statement are negative. <Reese Roberto - Last Filed: 12/22/20 18:55> ROS Other: All systems not noted in ROS Statement are negative. <Boni Schultz - Last Filed: 12/22/20 20:28> ROS Statement: Those systems with pertinent positive or pertinent negative responses have been documented in the HPI. EKG Findings - EKG Comments: EKG Findings:: Sinus rhythm with no acute ischemic changes. Ventricular rate 86, MT 126, QRS 90, QTC 445. 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 Her 1st was complicated by eclampsia requiring a 34 week delivery by C- section. History of Any Multi-Drug Resistant Organisms: None Reported Past Surgical History: Section, Cholecystectomy Additional Past Surgical History / Comment(s): chiari decompression(head/brain), bilateral knee scope (1 on right, 3 on left), D&C. Past Psychological History: No Psychological Hx Reported Smoking Status: Former smoker Past Alcohol Use History: Occasional Past Drug Use History: None Reported - Past Family History Father Family Medical History: Unable to Obtain Mother Family Medical History: Hypertension Additional Family Medical History / Comment(s): Maternal grandparents both had diabetes. <PardeepReese - Last Filed: 12/22/20 18:55> General Exam Limitations: no limitations General appearance: alert, in no apparent distress Head exam: Present: atraumatic, normocephalic, normal inspection Eye exam: Present: normal appearance, PERRL, EOMI Pupils: Present: normal accommodation ENT exam: Present: normal exam, normal oropharynx, mucous membranes moist Neck exam: Present: normal inspection, full ROM. Absent: tenderness Respiratory exam: Present: normal lung sounds bilaterally, chest wall tenderness (Mild reproducible tenderness in the right upper chest). Absent: respiratory distress, wheezes, rales, rhonchi, stridor Cardiovascular Exam: Present: regular rate, normal rhythm, normal heart sounds. Absent: systolic murmur Extremities exam: Present: normal inspection, full ROM, normal capillary refill. Absent: tenderness Back exam: Present: normal inspection, full ROM. Absent: tenderness, CVA tenderness (R), CVA tenderness (L) Neurological exam: Present: alert, oriented X3, CN II-XII intact, normal gait Psychiatric exam: Present: normal affect, normal mood Skin exam: Present: warm, dry, intact, normal color <Reese Roberto - Last Filed: 12/22/20 18:55> Course Vital Signs 12/22/20 12/22/20 12/22/20 14:04 14:28 14:47 Temperature 97.7 F Pulse Rate 87 92 Respiratory 16 18 18 Rate Blood Pressure 136/80 148/90 O2 Sat by Pulse 100 100 Oximetry 12/22/20 12/22/20 12/22/20 15:19 16:19 17:00 Temperature Pulse Rate 82 80 98 Respiratory 18 18 18 Rate Blood Pressure 128/53 128/58 137/70 O2 Sat by Pulse 100 100 100 Oximetry 12/22/20 12/22/20 18:41 18:44 Temperature 97.7 F Pulse Rate 78 78 Respiratory 18 18 Rate Blood Pressure 121/62 121/62 O2 Sat by Pulse 100 100 Oximetry Chest Pain MDM <Reese Roberto - Last Filed: 12/22/20 18:55> - MDM 40-year-old female presents to the emergency department with a chief complaint of chest pain. On physical examination she has slightly reproducible right upper chest pain. This appears to be atypical chest pain. CBC is unremarkable. CMP reveals elevated renal function with a BUN of 19 and creatinine 1.25. Patient does appear to be slightly dehydrated. She was initially given some aspirin. Chest x-ray is unremarkable. Initial troponin is negative. Repeat troponins are also negative. Patient currently has a heart score of 1. I advised the patient to follow with a primary care physician. Strict return parameters were thoroughly discussed the patient was understanding and agreeable. Case discussed with Dr. 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 Return to emergency department if symptoms worsen. Referrals: Gregoria Pierre MD [Primary Care Provider] - 1-2 days
[2020-12-22] MEDS ORDERED: ASPIRIN 81 MG PO STA (14:18)
[2020-12-22 14:29] VITALS: RESP 18
[2020-12-22 14:36] LABS: Basophils # (A) 0.1 k/uL (0-0.2); Basophils % (A) 1 %; Eosinophils # (A) 0.2 k/uL (0-0.7); Eosinophils % (A) 2 %; HCT 41.8 % (34.0-46.0); Lymphocytes % (A) 33 %; MCH 29.2 pg (25.0-35.0); MCHC 33.4 g/dL (31.0-37.0); MCV 87.2 fL (80.0-100.0); Mean Platelet Volume 7.8; Monocytes # (A) 0.4 k/uL (0-1.0); Monocytes % (A) 5 %; Neutrophils # (A) 5.2 k/uL (1.3-7.7); Neutrophils % (A) 58 %; Platelet Count 304 k/uL (150-450); RDW 13.4 % (11.5-15.5)
[2020-12-22 14:43] LABS: INR 1.1 (<1.2); Partial Thromboplastin Time 26.1 sec (22.0-30.0); Prothrombin Time 11.4 sec (9.0-12.0)
[2020-12-22 14:44] LABS: Albumin 4.4 g/dL (3.5-5.0); Calcium 9.5 mg/dL (8.4-10.2); Potassium 3.7 mmol/L (3.5-5.1); Total Bilirubin 0.4 mg/dL (0.2-1.3); Total Protein 7.6 g/dL (6.3-8.2)
--- NOTE | 2020-12-22 14:56 | XR ---
EXAMINATION TYPE: XR chest 2V DATE OF EXAM: 12/22/2020 COMPARISON: 05/24/2018 HISTORY: Chest pain TECHNIQUE: FINDINGS: Heart and mediastinum are normal. Lungs are clear. Diaphragm is normal. Bony thorax appears normal. There are chest leads. IMPRESSION: Normal chest. No change.
[2020-12-22 18:42] VITALS: BP 121/62; PULSE 78
== END 2020-12-22 18:45 | disposition home or self-care (01) ==
LOC: EC 13:59
DX: R07.89 Other chest pain (principal); Z90.49 Acquired absence of other specified parts of digestive tract; Z87.891 Personal history of nicotine dependence
CPT/HCPCS: 36415; 71046; 80053; 83690; 83735; 84484; 85025; 85379; 85610; 85730; 87635; 93005; 99285

== ENCOUNTER 2023-10-15 21:52 | Emergency (ER) | payer BC ==
[2023-10-15 22:12] VITALS: RESP 18; TEMP 98
--- NOTE | 2023-10-15 23:41 | CT ---
EXAM: CT Head Without Intravenous Contrast CLINICAL HISTORY: hx chiari malformation. PATTERSON TECHNIQUE: Axial computed tomography images of the head/brain without intravenous contrast. CTDI is 49.2 mGy and DLP is 1138.4 mGy-cm. This CT exam was performed using one or more of the following dose reduction techniques: automated exposure control, adjustment of the mA and/or kV according to patient size, and/or use of iterative reconstruction technique. COMPARISON: 05/27/2016. FINDINGS: Status post midline suboccipital craniectomy/decompression. No acute stroke. No hemorrhage. No abnormal extra-axial fluid collection. No significant white matter disease. No hydrocephalus. No midline shift. No fracture. Paranasal sinuses are clear. IMPRESSION: No acute abnormality. Status post suboccipital decompression. No hydrocephalus.
[2023-10-16] MEDS: KETOROLAC 15 MG/ML 1 ML VIAL IVP STA (00:13)
[2023-10-16] MEDS: diphenhydrAMINE 50 MG/ML 1 ML VIAL IVP STA (00:14)
[2023-10-16] MEDS: ONDANSETRON 4 MG/2 ML VIAL IVP STA (00:15)
[2023-10-16] MEDS: SODIUM CHLORIDE 0.9% 1,000 ML IV STA (00:15)
--- NOTE | 2023-10-16 00:56 | ED ---
General Adult HPI - General Chief complaint: Headache Stated complaint: headache nose bleed Time Seen by Provider: 10/15/23 22:27 Source: patient Mode of arrival: ambulatory Limitations: no limitations - History of Present Illness Initial comments: 43-year-old female presenting to the ED with a chief complaint of headache. Patient has a history significant for Chiari malformation. Patient reports 2 to 3 days ago onset of migraine which was consistent with her history of migraines however reports over the last 1 to 2 days pain has been worsening in severity. Also notes new visual disturbances not consistent with her history of migraines prompting presentation to the ED for further evaluation. No fever or chills. No chest pain or shortness of breath. No other complaints at this time. - Related Data Home Medications Medication Instructions Recorded Confirmed Minocycline HCl [Minocin] 100 mg PO DAILY 07/31/20 12/22/20 Multivitamin [Multivitamins Adult 1 tab PO DAILY 07/31/20 12/22/20 Gummies] Topiramate [Topamax] 100 mg PO HS 07/31/20 12/22/20 Gabapentin [Neurontin] 300 mg PO QID 12/22/20 12/22/20 Allergies Allergy/AdvReac Type Severity Reaction Status Date / Time zonisamide [From Zonegran] Allergy Rash/Hives Verified 10/15/23 21:57 adhesive tape AdvReac Peels Skin Verified 10/15/23 21:57 cyclobenzaprine HCl AdvReac Confusion/E Verified 10/15/23 21:57 [From Flexeril] motional morphine AdvReac Itching Verified 10/15/23 21:57 Review of Systems ROS Statement: Those systems with pertinent positive or pertinent negative responses have been documented in the HPI. ROS Other: All systems not noted in ROS Statement are negative. Past Medical History Additional Past Medical History / Comment(s): POTS, arnold chiari, reynauds, Ehl ers Danlos Syndrome. 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 Her 1st was complicated by eclampsia requiring a 34 week delivery by C- section. History of Any Multi-Drug Resistant Organisms: None Reported Past Surgical History: Section, Cholecystectomy Additional Past Surgical History / Comment(s): chiari decompression(head/brain), bilateral knee scope (1 on right, 3 on left), D&C. Past Psychological History: No Psychological Hx Reported Smoking Status: Former smoker Past Alcohol Use History: Occasional Past Drug Use History: None Reported - Past Family History Father Family Medical History: Unable to Obtain Mother Family Medical History: Hypertension Additional Family Medical History / Comment(s): Maternal grandparents both had diabetes. General Exam Limitations: no limitations General appearance: alert, in no apparent distress Eye exam: Present: normal appearance ENT exam: Present: normal exam Respiratory exam: Present: normal lung sounds bilaterally Cardiovascular Exam: Present: regular rate, normal rhythm GI/Abdominal exam: Present: soft Neurological exam: Present: alert, oriented X3, CN II-XII intact, other ([id number], [id number], rapid alternating hand movements intact.) Skin exam: Present: warm, dry Course Vital Signs 10/15/23 21:55 Temperature 98 F Pulse Rate 8 L Respiratory 18 Rate Blood Pressure 109/67 O2 Sat by Pulse 100 Oximetry Medical Decision Making - Medical Decision Making Was pt. sent in by a medical professional or institution (, PA, ELECTRICIAN OUTSIDE, urgent care, hospital, or prison...) When possible be specific @ -No Did you speak to anyone other than the patient for history (EMS, parent, family, police, friend...)? What history was obtained from this source @ -No Did you review nursing and triage notes (agree or disagree)? Why? @ -I reviewed and agree with nursing and triage notes Were old charts reviewed (outside hosp., previous admission, EMS record, old EKG, old radiological studies, urgent care reports/EKG's, prison records)? Report findings @ -No old charts were reviewed Differential Diagnosis (chest pain, altered mental status, abdominal pain women, abdominal pain men, vaginal bleeding, weakness, fever, dyspnea, syncope, headache, dizziness, GI bleed, back pain, seizure, CVA, palpatations, mental health, musculoskeletal)? @ -Differential Headache: Migraine, tension, cluster, carbon monoxide, central venous thrombosis, pension karma temporal arteritis, acute closure glaucoma, intercranial hemorrhage, mastoiditis, sinusitis, head injury, this is not meant to be an all-inclusive list. EKG interpreted by me (3pts min.). @ -None X-rays interpreted by me (1pt min.). @ -None done CT interpreted by me (1pt min.). @ -CT brain interpreted by me showing no evidence of acute finding. U/S interpreted by me (1pt. min.). @ -None done What testing was considered but not performed or refused? (CT, X-rays, U/S, labs)? Why? @ -None What meds were considered but not given or refused? Why? @ -None Did you discuss the management of the patient with other professionals (professionals i.e. DrJesus Alberto, PA, ELECTRICIAN OUTSIDE, lab, RT, psych nurse, social work nurse, division traffic superintendent, teacher, food safety officer, case specialist)? Give summary @ -No Was smoking cessation discussed for >3mins.? @ -No Was critical care preformed (if so, how long)? @ -No Were there social determinants of health that impacted care today? How? (Homelessness, low income, unemployed, alcoholism, drug addiction, transportation, low edu. Level, literacy, decrease access to med. care, [place] [facility], rehab)? @ -No Was there de-escalation of care discussed even if they declined (Discuss DNR or withdrawal of care, Hospice)? DNR status @ -No What co-morbidities impacted this encounter? (DM, HTN, Smoking, COPD, CAD, Cancer, CVA, ARF, Chemo, Hep., AIDS, mental health diagnosis, sleep apnea, morbid obesity)? @ -Chiari malformation Was patient admitted / discharged? Hospital course, mention meds given and route, prescriptions, significant lab abnormalities, going to OR and other pertinent info. @ -Discharge 43-year-old female with a past medical history significant for migraines presenting to the ED with a chief complaint of headache also notes some new visual features to this however otherwise consistent with her history of migraines. CT scan revealed no acute findings. Laboratory studies unremarkable. Patient had improvement of symptoms with analgesia provided here in the ED. Discharged home in stable condition. Discussed return precautions with patient and family who verbalized agreement. Undiagnosed new problem with uncertain prognosis? @ -No Drug Therapy requiring intensive monitoring for toxicity (Heparin, Nitro, Insulin, Cardizem)? @ -No Were any procedures done? @ -No Diagnosis/symptom? @ -Migraine Acute, or Chronic, or Acute on Chronic? @ -Acute Uncomplicated (without systemic symptoms) or Complicated (systemic symptoms)? @ -Uncomplicated Side effects of treatment? @ -No Exacerbation, Progression, or Severe Exacerbation? @ -No Poses a threat to life or bodily function? How? (Chest pain, [place], [place], pneumonia, PE, COPD, DKA, ARF, appy, cholecystitis, CVA, Diverticulitis, Homicidal, Suicidal, threat to staff... and all critical care pts) @ -No - Lab Data Result diagrams: 10/16/23 00:08 10/16/23 00:08 Lab Results 10/16/23 10/16/23 10/16/23 Range/Units 00:08 00:08 00:08 WBC 10.1 (3.8-10.6) k/uL RBC 4.75 (3.80-5.40) m/uL Hgb 13.9 (11.4-16.0) gm/dL Hct 41.9 (34.0-46.0) % MCV 88.4 (80.0-100.0) fL MCH 29.4 (25.0-35.0) pg MCHC 33.2 (31.0-37.0) g/dL RDW 13.1 (11.5-15.5) % Plt Count 289 (150-450) k/uL MPV 8.8 Neutrophils % 54 % Lymphocytes % 36 % Monocytes % 5 % Eosinophils % 3 % Basophils % 1 % Neutrophils # 5.4 (1.3-7.7) k/uL Lymphocytes # 3.6 (1.0-4.8) k/uL Monocytes # 0.5 (0-1.0) k/uL Eosinophils # 0.3 (0-0.7) k/uL Basophils # 0.1 (0-0.2) k/uL Sodium (137-145) mmol/L Potassium (3.5-5.1) mmol/L Chloride (98-107) mmol/L Carbon Dioxide (22-30) mmol/L Anion Gap mmol/L BUN (7-17) mg/dL Creatinine (0.52-1.04) mg/dL Est GFR (CKD-EPI)AfAm (>60 ml/min/1.73 sqM) Est GFR (CKD-EPI)NonAf (>60 ml/min/1.73 sqM) Glucose (74-99) mg/dL Calcium (8.4-10.2) mg/dL Total Bilirubin (0.2-1.3) mg/dL AST (14-36) U/L ALT (4-34) U/L Alkaline Phosphatase (38-126) U/L Total Protein (6.3-8.2) g/dL Albumin (3.5-5.0) g/dL Urine Color Colorless Urine Appearance Clear (Clear) Urine pH 6.5 (5.0-8.0) Ur Specific [place] 1.010 (1.001-1.035) Urine Protein Negative (Negative) Urine Glucose (UA) Negative (Negative) Urine Ketones Negative (Negative) Urine Blood Negative (Negative) Urine Nitrite Negative (Negative) Urine Bilirubin Negative (Negative) Urine Urobilinogen <2.0 (<2.0) mg/dL Ur Leukocyte Esterase Negative (Negative) Urine HCG, Qual Not Detected (Not Detectd) 10/16/23 Range/Units 00:08 WBC (3.8-10.6) k/uL RBC (3.80-5.40) m/uL Hgb (11.4-16.0) gm/dL Hct (34.0-46.0) % MCV (80.0-100.0) fL MCH (25.0-35.0) pg MCHC (31.0-37.0) g/dL RDW (11.5-15.5) % Plt Count (150-450) k/uL MPV Neutrophils % % Lymphocytes % % Monocytes % % Eosinophils % % Basophils % % Neutrophils # (1.3-7.7) k/uL Lymphocytes # (1.0-4.8) k/uL Monocytes # (0-1.0) k/uL Eosinophils # (0-0.7) k/uL Basophils # (0-0.2) k/uL Sodium 139 (137-145) mmol/L Potassium 4.0 (3.5-5.1) mmol/L Chloride 109 H (98-107) mmol/L Carbon Dioxide 24 (22-30) mmol/L Anion Gap 6 mmol/L BUN 14 (7-17) mg/dL Creatinine 1.02 (0.52-1.04) mg/dL Est GFR (CKD-EPI)AfAm 79 (>60 ml/min/1.73 sqM) Est GFR (CKD-EPI)NonAf 68 (>60 ml/min/1.73 sqM) Glucose 88 (74-99) mg/dL Calcium 9.2 (8.4-10.2) mg/dL Total Bilirubin 0.2 (0.2-1.3) mg/dL AST 16 (14-36) U/L ALT 10 (4-34) U/L Alkaline Phosphatase 62 (38-126) U/L Total Protein 7.2 (6.3-8.2) g/dL Albumin 4.3 (3.5-5.0) g/dL Urine Color Urine Appearance (Clear) Urine pH (5.0-8.0) Ur Specific [place] (1.001-1.035) Urine Protein (Negative) Urine Glucose (UA) (Negative) Urine Ketones (Negative) Urine Blood (Negative) Urine Nitrite (Negative) Urine Bilirubin (Negative) Urine Urobilinogen (<2.0) mg/dL Ur Leukocyte Esterase (Negative) Urine HCG, Qual (Not Detectd) Disposition Clinical Impression: Migraine Disposition: HOME SELF-CARE Condition: Good Additional Instructions: Please return to the Emergency Department if symptoms worsen or any other concerns. Please follow-up with your PCP. Is patient prescribed a controlled substance at d/c from ED?: No Referrals: Gregoria Pierre MD [Primary Care Provider] - 1-2 days Time of Disposition: 01:50
[2023-10-16 01:14] LABS: Appearance,Urine Clear (Clear); Basophils # (A) 0.1 k/uL (0-0.2); Basophils % (A) 1 %; Bilirubin,Urine Negative (Negative); Blood,Urine Negative (Negative); Color,Urine Colorless; Eosinophils # (A) 0.3 k/uL (0-0.7); Eosinophils % (A) 3 %; Glucose,Urine (UA) Negative (Negative); HCT 41.9 % (34.0-46.0); HGB 13.9 gm/dL (11.4-16.0); Ketones,Urine Negative (Negative); Leukocyte Esterase,Urine Negative (Negative); Lymphocytes # (A) 3.6 k/uL (1.0-4.8); Lymphocytes % (A) 36 %; MCH 29.4 pg (25.0-35.0); MCHC 33.2 g/dL (31.0-37.0); MCV 88.4 fL (80.0-100.0); Mean Platelet Volume 8.8; Monocytes # (A) 0.5 k/uL (0-1.0); Monocytes % (A) 5 %; Neutrophils # (A) 5.4 k/uL (1.3-7.7); Neutrophils % (A) 54 %; Nitrite,Urine Negative (Negative); PH, Urine 6.5 (5.0-8.0); Platelet Count 289 k/uL (150-450); Protein,Urine Negative (Negative); RBC 4.75 m/uL (3.80-5.40); RDW 13.1 % (11.5-15.5); Urobilinogen,Urine <2.0 mg/dL (<2.0); WBC 10.1 k/uL (3.8-10.6)
[2023-10-16 01:25] LABS: ALT 10 U/L (4-34); AST 16 U/L (14-36); African American GFR (CKD) 79 (>60 ml/min/1.73 sqM); Albumin 4.3 g/dL (3.5-5.0); Alkaline Phosphatase 62 U/L (38-126); Anion Gap 6 mmol/L; Blood Urea Nitrogen 14 mg/dL (7-17); Calcium 9.2 mg/dL (8.4-10.2); Carbon Dioxide 24 mmol/L (22-30); Chloride 109 mmol/L (98-107); Glucose 88 mg/dL (74-99); Non-African American GFR(CKD) 68 (>60 ml/min/1.73 sqM); Sodium 139 mmol/L (137-145); Total Bilirubin 0.2 mg/dL (0.2-1.3); Total Protein 7.2 g/dL (6.3-8.2)
[2023-10-16] MEDS: DEXAMETHASONE SOD PHOSPHATE 10 MG/ML 1 ML VIAL IVP STA (01:50)
[2023-10-16] MEDS: MAGNESIUM SULFATE-D5W PMX 1 GM in DEXTROSE/WATER 1 100ML.BAG IVPB ONE (01:51)
[2023-10-16 03:42] VITALS: BP 113/60; PULSE 69
== END 2023-10-16 03:18 | disposition home or self-care (01) ==
LOC: EC 21:52
DX: G43.909 Migraine, unspecified, not intractable, without status migrainosus (principal); Z88.5 Allergy status to narcotic agent; Z88.8 Allergy status to other drugs, medicaments and biological substances; Z91.048 Other nonmedicinal substance allergy status; Z87.891 Personal history of nicotine dependence
CPT/HCPCS: 36415; 70450; 80053; 81003; 81025; 85025; 96361; 96365; 96375; 99284

== ENCOUNTER 2024-03-24 15:00 | Observation (INO) | payer BC ==
--- NOTE | 2024-03-24 16:04 | ED ---
Chest Pain HPI - General Chief Complaint: Chest Pain Stated Complaint: Chest Pain,Dizziness-Wearing heart monitor Time Seen by Provider: 03/24/24 15:14 Source: patient Mode of arrival: ambulatory Limitations: no limitations - History of Present Illness Initial Comments: Patient is a 44-year-old female past medical history Milan-Danlos syndrome, Chiari malformation, POTS, presenting today for chest pain. Patient states she has had on and ongoing chest pain that has been being worked up by her primary care provider. She has a court monitor in place for this that she had placed 2 days ago and will send in after 7 days. Today she was sitting at work she began having pressure-like chest pain that radiating to lower shoulder blades. This was accompanied by a headache around the top of her head. Headache similar to prior headaches. History of migraine headaches. Patient does state "I feel like I could not find the places in my brain", denies any changes in vision, weakness, facial droop, slurred speech. Does states she feels like her fingers and toes are tingling. No other numbness. No shortness of breath. History of von Willebrand's disease though no history of prior PE/DVT, no history of cancers, non-smoker, no recent travels, surgeries or hospitalizations. No pain medications prior to arrival. She is never seen a tariff compiling clerk before. - Related Data Home Medications Medication Instructions Recorded Confirmed Topiramate [Topamax] 100 mg PO HS 07/31/20 03/24/24 Gabapentin [Neurontin] 300 mg PO DAILY 12/22/20 03/24/24 Acetaminophen Tab [Tylenol] 650 mg PO Q4H PRN 03/24/24 03/24/24 Gabapentin 300 mg PO DAILY PRN 03/24/24 03/24/24 Gabapentin [Neurontin] 600 mg PO HS 03/24/24 03/24/24 Loratadine [Claritin] 10 mg PO DAILY PRN 03/24/24 03/24/24 Allergies Allergy/AdvReac Type Severity Reaction Status Date / Time adhesive tape Allergy Rash/Hives Verified 03/24/24 17:22 zonisamide [From Zonegran] Allergy Rash/Hives Verified 03/24/24 17:22 cyclobenzaprine HCl AdvReac Confusion/E Verified 03/24/24 17:22 [From Flexeril] motional morphine AdvReac Itching Verified 03/24/24 17:22 Review of Systems ROS Statement: Those systems with pertinent positive or pertinent negative responses have been documented in the HPI. EKG Findings - EKG Comments: EKG Findings:: EKG interpretation. Sinus rhythm. Heart rate 75 bpm. Normal intervals. Normal axis. No ST elevations or depressions, no signs of LVH, no arrhythmia. Compared EKG performed on , some flattening of the T wave in aVL, otherwise no significant changes Past Medical History Additional Past Medical History / Comment(s): POTS, arnold chiari, reynauds, Milan Danlos Syndrome. 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 Her 1st was complicated by eclampsia requiring a 34 week delivery by C- section. History of Any Multi-Drug Resistant Organisms: None Reported Past Surgical History: Section, Cholecystectomy Additional Past Surgical History / Comment(s): chiari decompression(head/brain), bilateral knee scope (1 on right, 3 on left), D&C. Past Psychological History: No Psychological Hx Reported Smoking Status: Former smoker Past Alcohol Use History: Occasional Past Drug Use History: None Reported - Past Family History Father Family Medical History: Unable to Obtain Mother Family Medical History: Hypertension Additional Family Medical History / Comment(s): Maternal grandparents both had diabetes. General Exam - General Exam Comments Initial Comments: PE: CONSTITUTIONAL: no apparent distress, well appearing SKIN: warm, dry, no jaundice, hives or petechiae EYES: pupils are equally round, extraocular movements intact without nystagmus, clear conjunctiva, non-icteric sclera HENT: normocephalic, atraumatic, moist mucus membranes, oropharynx clear without exudates NECK: Nontender and supple with no nuchal rigidity, no lymphadenopathy, full range of motion PULMONARY: clear to auscultation without wheezes, rhonchi, or rales, normal excursion, no accessory muscle use and no stridor CARDIOVASCULAR: regular rate, rhythm, normal S1 and S2. No appreciated murmurs. Strong radial pulses with intact distal perfusion, 2+ bilateral radial pulses, 2+ bilateral DP pulses, no chest tenderness palpation GASTROINTESTINAL: soft, non-tender, non-distended, no palpable masses, no rebound or guarding LYMPHATICS: no edema in lower extremities MUSCULOSKELETAL: Extremities have no gross deformity, no edema, redness, or swelling NEUROLOGIC: _a/o x 3, GCS 15, normal mentation and speech. Moves all extremities x 4 without motor or sensory deficit; cranial nerves: II (visual ruiz without defects), III, IV and (extraocular movements are intact, pupils are equal with normal reaction to light), V (intact facial sensation and jaw opening), VII (no facial droop), IX and X (normal palate movement, midline uvula, normal voice), XI (symmetrical shoulder shrug and lateral head rotation), XII (midline tongue protrusion). Motor strength is 5/5 in all extremities. No abnormal movements. Normal muscle tone. Sensation to light touch is intact bilaterally. No cerebellar signs ([id number] normal) PSYCHIATRIC: _normal mood and affect, thought process is clear and linear Limitations: no limitations Course Vital Signs 03/24/24 03/24/24 03/24/24 15:07 15:44 17:47 Temperature 97.6 F Pulse Rate 86 79 63 Respiratory 18 20 16 Rate Blood Pressure 131/83 125/85 112/52 O2 Sat by Pulse 100 100 100 Oximetry 03/24/24 21:44 Temperature Pulse Rate 78 Respiratory 16 Rate Blood Pressure 120/74 O2 Sat by Pulse 98 Oximetry - Reevaluation(s) Reevaluation #1: 03/24/24 16:01 Contacted by telecommunications field technician that she was called by radiologist and cannot perform CTA head and neck and CTA chest abdomen pelvis for dissection without waiting for labs due to contrast load. Biggest concern for dissection given patient's medical history, discussed with telecommunications field technician to at least obtain CTA chest abdomen pelvis to rule out dissection without waiting for labs. She is agreeable with plan. This did lead to delay in CTA. Reevaluation #2: CTA chest reviewed, I see no evidence of dissection. 03/24/24 18:10 Reevaluation #3: Discussed with Dr. Stout, accepts for admission. 03/24/24 21:06 Chest Pain MDM - MDM Was pt. sent in by a medical professional or institution (, PA, UNDERWATER PHOTOGRAPHER, urgent care, hospital, or fci...) When possible be specific @ -[No] Did you speak to anyone other than the patient for history (EMS, parent, family, police, friend...)? What history was obtained from this source @ -[No] Did you review nursing and triage notes (agree or disagree)? Why? @ -[I reviewed and agree with nursing and triage notes] Were old charts reviewed (outside hosp., previous admission, EMS record, old EKG, old radiological studies, urgent care reports/EKG's, fci records)? Report findings @ -[No old charts were reviewed] Differential Diagnosis (chest pain, altered mental status, abdominal pain women, abdominal pain men, vaginal bleeding, weakness, fever, dyspnea, syncope, headache, dizziness, GI bleed, back pain, seizure, CVA, palpatations, mental health, musculoskeletal)? @ -[not applicable] EKG interpreted by me (3pts min.). @ -[As above] X-rays interpreted by me (1pt min.). @ -[None done] CT interpreted by me (1pt min.). @ -[None done] U/S interpreted by me (1pt. min.). @ -[None done] What testing was considered but not performed or refused? (CT, X-rays, U/S, labs)? Why? @ -[None] What meds were considered but not given or refused? Why? @ -[None] Did you discuss the management of the patient with other professionals (professionals i.e. , PA, UNDERWATER PHOTOGRAPHER, lab, RT, psych nurse, psychiatric social worker, dividend deposit entry clerk, teacher, philanthropy officer, case management director)? Give summary @ -[No] Was smoking cessation discussed for >3mins.? @ -[No] Was critical care preformed (if so, how long)? @ -[No] Were there social determinants of health that impacted care today? How? (Homelessness, low income, unemployed, alcoholism, drug addiction, transportation, low edu. Level, literacy, decrease access to med. care, retirement, rehab)? @ -[No] Was there de-escalation of care discussed even if they declined (Discuss DNR or withdrawal of care, Hospice)? DNR status @ -[No] What co-morbidities impacted this encounter? (DM, HTN, Smoking, COPD, CAD, Cancer, CVA, ARF, Chemo, Hep., AIDS, mental health diagnosis, sleep apnea, morbid obesity)? @ -[None] Was patient admitted / discharged? Hospital course, mention meds given and route, prescriptions, significant lab abnormalities, going to OR and other pertinent info. @ -[hospital course] Patient admitted Patient is a 44-year-old female past medical history of Milan-Danlos syndrome, POTS, Chiari malformation status postrepair presenting today for chest pain and associated headache. Differential diagnosis remains broad however top considerations include ACS, PE, pericarditis, costochondritis, aortic dissection, pleuritis, GERD, migraine PATTERSON, tension PATTERSON, intracranial mass. Due to concern for aortic dissection with patient's EDS, CTA head and neck ordered in additional to CTA C/A/P to ensure no evidence of carotid or vertebral di ssection. I was concted by telecommunications field technician regarding this, please see hospital course for details regarding radiologists' concerns, states cannot obtain CT brain, CTA head and neck and CT angiogram chest abdomen pelvis out of concern for radiation exposure and contrast load.. Given patient has no focal neurologic deficits on arrival, equal pulses in all 4 extremities, in order to spare contrast load and excessive radiation, CTA head and neck cancelled so that we could proceed with CTA chest abdomen pelvis JAEL. CT brain read no acute process, I reviewed CT brain, I see no evidence of hemorrhage, mass, enlarged ventricles or other acute process. CTA negative for disssection. On reassessment patient endorses improvement in chest pain but complains of worsening PATTERSON. Requests Toradol, states this has helped PATTERSON in the past. Considered ASA given patient's earlier chest pain vs toradol, patient would rather have toradol, and given lowered suspicion for ACS as this point ASA withheld. Additionally, IV magnesium, reglan, benadrly ordered. Repeat troponin 0.012, patient endorsed improvement in PATTERSON. She would feel comfortable with admission for observation for further chest pain evaluation. Patient has not yet been seen by tariff compiling clerk or had outpatient chest pain workup initiated, due to patient's history of Milan-Danlos syndrome and concerning history, as well as patient's family history of older brother dying before the age of 50 of cardiac disease, patient admitted for observation. Undiagnosed new problem with uncertain prognosis? @ -[No] Drug Therapy requiring intensive monitoring for toxicity (Heparin, Nitro, Insulin, Cardizem)? @ -[No] Were any procedures done? @ -[No] Diagnosis/symptom? @ -[default] Acute, or Chronic, or Acute on Chronic? @ -[default] Uncomplicated (without systemic symptoms) or Complicated (systemic symptoms)? @ -[default] Side effects of treatment? @ -[No] Exacerbation, Progression, or Severe Exacerbation? @ -[No] Poses a threat to life or bodily function? How? (Chest pain, [place], [place], pneumonia, PE, COPD, DKA, ARF, appy, cholecystitis, CVA, Diverticulitis, Homicidal, Suicidal, threat to staff... and all critical care pts) @ -[No] Disposition Clinical Impression: Chest pain, Headache Disposition: ADMITTED IP TO THIS [facility] Time of Disposition: 21:07
[2024-03-24 16:11] LABS: Partial Thromboplastin Time 25.4 sec (22.0-30.0); Prothrombin Time 11.1 sec (10.0-12.5)
[2024-03-24 16:14] LABS: ALT 14 U/L (4-34); AST 20 U/L (14-36); African American GFR (CKD) 86 (>60 ml/min/1.73 sqM); Albumin 4.6 g/dL (3.5-5.0); Alkaline Phosphatase 62 U/L (38-126); Anion Gap 6 mmol/L; Blood Urea Nitrogen 14 mg/dL (7-17); Calcium 9.5 mg/dL (8.4-10.2); Carbon Dioxide 24 mmol/L (22-30); Chloride 110 mmol/L (98-107); Glucose 103 mg/dL (74-99); Magnesium 2.2 mg/dL (1.6-2.3); Non-African American GFR(CKD) 75 (>60 ml/min/1.73 sqM); Potassium 3.5 mmol/L (3.5-5.1); Sodium 140 mmol/L (137-145); Total Bilirubin 0.6 mg/dL (0.2-1.3); Total Protein 7.5 g/dL (6.3-8.2)
[2024-03-24 16:17] LABS: Basophils # (A) 0.1 k/uL (0-0.2); Basophils % (A) 1 %; Eosinophils # (A) 0.1 k/uL (0-0.7); Eosinophils % (A) 2 %; HCT 42.7 % (34.0-46.0); HGB 14.1 gm/dL (11.4-16.0); Lymphocytes # (A) 2.7 k/uL (1.0-4.8); Lymphocytes % (A) 40 %; MCH 29.5 pg (25.0-35.0); MCHC 33.1 g/dL (31.0-37.0); Mean Platelet Volume 7.5; Monocytes # (A) 0.3 k/uL (0-1.0); Monocytes % (A) 5 %; Neutrophils # (A) 3.6 k/uL (1.3-7.7); Neutrophils % (A) 53 %; Platelet Count 307 k/uL (150-450); RDW 13.1 % (11.5-15.5); WBC 6.9 k/uL (3.8-10.6)
[2024-03-24 16:23] LABS: NT-Pro-B-Type Natriuretic Pept 30 pg/mL
[2024-03-24] MEDS: ACETAMINOPHEN TAB 500 MG TAB PO STA (16:43)
[2024-03-24] MEDS: SODIUM CHLORIDE 0.9% 1,000 ML IV STA (16:44)
[2024-03-24] MEDS: ONDANSETRON 4 MG/2 ML VIAL IVP STA (16:44)
--- NOTE | 2024-03-24 17:10 | CT ---
EXAMINATION TYPE: CT brain wo con CT DLP: 1138.4 mGycm, Automated exposure control for dose reduction was used. DATE OF EXAM: 03/24/2024 4:50 PM COMPARISON: CT brain 10/15/2023. CLINICAL INDICATION:Female, 44 years old with history of hx Chiari malformation. Now PATTERSON, Headache, hx of Chiari malformation TECHNIQUE: Brain: Axial CT images of the brain were obtained with coronal and sagittal reformats created and rev iewed. Contrast used: None. Oral contrast used: None. FINDINGS: Status post midline suboccipital craniectomy/decompression. No acute stroke. No hemorrhage. No abnormal extra-axial fluid collection. No significant white matter disease. No hydrocephalus. No midline shift. No fracture. Paranasal sinuses are clear. IMPRESSION: No acute abnormality. Status post suboccipital decompression. No hydrocephalus.
--- NOTE | 2024-03-24 18:25 | CT ---
EXAMINATION TYPE: CT angiogram, thoracic, abdominal and pelvic CT DLP: 1779.1 mGycm, Automated exposure control for dose reduction was used. DATE OF EXAM: 03/24/2024 5:01 PM COMPARISON: CT abdomen pelvis of 05/29/2018. CLINICAL INDICATION:Female, 44 years old with history of hx EDS, now chest pain, nausea; PHH, Chest p ain with headaches and nausea. The abbreviation EDS is questioned to mean of Odalis-Danlos syndrome. TECHNIQUE: Dissection protocol: Multiple axial CT images of the chest, abdomen, and pelvis were obtai jennifer prior to and after the administration of IV contrast. 3-D reformats and maximum intensity projec tion format were performed on a separate workstation. Contrast used:100 cc mL of Isovue 370 without and with IV Contrast, Oral contrast used: FINDINGS: ARTERIAL VASCULATURE: Ascending thoracic aorta and descending thoracic aorta are within normal limits for size. There is no evidence for intramural hematoma within the aorta on noncontrast imaging. Ther e is no scattered atherosclerotic plaque throughout the arterial vasculature. Postcontrast imaging de monstrates no evidence for dissection. He major vessels of the aortic arch are patent. The major vess els of the abdominal aorta are patent. The aorta is normal in course and caliber. There is no evidenc e of aortic dissection, aneurysm or acute aortic injury. Great arch vessels patent and normal in cour se and caliber. PULMONARY ARTERIAL VASCULATURE: Normal caliber. No evidence of filling defect to suggest pulmonary em bolus. VENOUS SYSTEM: Unremarkable. Lungs/pleura: The lung parenchyma appears unremarkable. Heart: Within normal limits. Mediastinum: No gross evidence of adenopathy. Lower Neck: No significant findings. Abdomen: Liver: Unremarkable. Gallbladder and Bile ducts: Unremarkable. Pancreas: Unremarkable. Spleen: Unremarkable. Adrenal glands: Unremarkable. Kidneys and Ureters: Unremarkable. No hydronephrosis. Bladder: The urinary bladder appears abnormally distended, but is otherwise unremarkable.. Reproductive: Unremarkable. Stomach and Bowel: No evidence of bowel obstruction. Peritoneum: No evidence of pneumoperitoneum, free fluid, or adenopathy. Musculoskeletal: The osseous structures appear intact. Lymph nodes: No evidence of lymphadenopathy. Abdominal wall/soft tissues: Unremarkable. IMPRESSION: 1. No evidence for thoracic aortic dissection. 2. Unusual and abnormal urinary bladder distention.
[2024-03-24] MEDS: KETOROLAC 15 MG/ML 1 ML VIAL IVP STA ×2 (19:00→19:49)
[2024-03-24] MEDS: ASPIRIN 81 MG PO STA (19:31)
[2024-03-24] MEDS: diphenhydrAMINE 50 MG/ML 1 ML VIAL IVP STA (19:48)
[2024-03-24] MEDS: MAGNESIUM SULFATE-D5W PMX 1 GM in DEXTROSE/WATER 1 100ML.BAG IVPB SCH (19:48)
[2024-03-24] MEDS: METOCLOPRAMIDE 5 MG/ML 2 ML VIAL IVP STA (19:49)
[2024-03-24] MEDS ORDERED: ALPRAZolam 0.25 MG TAB PO PRN (21:07)
[2024-03-24] MEDS ORDERED: NALOXONE 0.4 MG/ML 1 ML VIAL IV PRN (21:07)
[2024-03-24] MEDS ORDERED: GABAPENTIN 300 MG CAP PO PRN (21:09)
[2024-03-24] MEDS ORDERED: LORATADINE 10 MG TAB PO PRN (21:09)
[2024-03-24] MEDS: GABAPENTIN 300 MG CAP PO SCH (23:00)
[2024-03-24] MEDS: TOPIRAMATE 100 MG TAB PO SCH (23:00)
[2024-03-25] MEDS: ACETAMINOPHEN TAB 325 MG TAB PO PRN (05:36)
[2024-03-25] MEDS: FAMOTIDINE 20 MG TAB PO SCH (09:07)
[2024-03-25] MEDS: GABAPENTIN 300 MG CAP PO SCH (09:07)
--- NOTE | 2024-03-25 11:53 | P.HPIM ---
History of Present Illness This is a pleasant 44 years old female with past medical history of Chiari malformation Presents because of chest pain and headache Patient states that she has been having this chest pain for more than 3 weeks About 8/10 in severity, currently 2/10 in the middle of the chest radiating to the back felt nonspecific cannot like somebody or something function in her chest with no precipitating or relieving factors No coughing dyspnea, no change in urine or bowel habits. She complains from headache and she has a neurologist is appointment with him is on June and she wants to see neurologist in-house She denies dizziness, no weakness or tingling, get up and go test is normal She denies smoking alcohol or illicit drugs Vitals are stable CBC, BMP liver enzymes and INR unremarkable Troponin is negative, BNP 30 TSH 1.1 ECG showing sinus rhythm at [address]-T changes Chest x-ray showing no acute process CT of the brain is negative for acute process, s/p suboccipital decompression, no hydrocephalus Thoracic aortic CT showing no thoracic aortic dissection or aneurysm, no pulmonary embolism, Urinary Bladder distended Review of Systems Review of systems CONSTITUTIONAL: No fever, no malaise, no fatigue. HEENT: No recent visual problems or hearing problems. Denied any sore throat. CARDIOVASCULAR: No orthopnea, PND, no palpitations, no syncope. PULMONARY: No shortness of breath, no cough, no hemoptysis. GASTROINTESTINAL: No diarrhea, no nausea, no vomiting, no abdominal pain. Nor moactive bowel sounds. NEUROLOGICAL: No headaches, no weakness, no numbness. HEMATOLOGICAL: Denies any bleeding or petechiae. GENITOURINARY: Denies any burning micturition, frequency, or urgency. MUSCULOSKELETAL/RHEUMATOLOGICAL: Denies any joint pain, swelling, or any muscle pain. ENDOCRINE: Denies any polyuria or polydipsia. 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 Her 1st was complicated by eclampsia requiring a 34 week delivery by C- section. History of Any Multi-Drug Resistant Organisms: None Reported Past Surgical History: Section, Cholecystectomy Additional Past Surgical History / Comment(s): chiari decompression(head/brain), bilateral knee scope (1 on right, 3 on left), D&C. Past Psychological History: No Psychological Hx Reported Smoking Status: Former smoker Past Alcohol Use History: Occasional Past Drug Use History: None Reported - Past Family History Father Family Medical History: Unable to Obtain Mother Family Medical History: Hypertension Additional Family Medical History / Comment(s): Maternal grandparents both had diabetes. Medications and Allergies Home Medications Medication Instructions Recorded Confirmed Type Topiramate [Topamax] 100 mg PO HS 07/31/20 03/24/24 History Gabapentin [Neurontin] 300 mg PO DAILY 12/22/20 03/24/24 History Acetaminophen Tab [Tylenol] 650 mg PO Q4H PRN 03/24/24 03/24/24 History Gabapentin 300 mg PO DAILY PRN 03/24/24 03/24/24 History Gabapentin [Neurontin] 600 mg PO HS 03/24/24 03/24/24 History Loratadine [Claritin] 10 mg PO DAILY PRN 03/24/24 03/24/24 History Allergies Allergy/AdvReac Type Severity Reaction Status Date / Time adhesive tape Allergy Rash/Hives Verified 03/24/24 17:22 zonisamide [From Zonegran] Allergy Rash/Hives Verified 03/24/24 17:22 cyclobenzaprine HCl AdvReac Confusion/E Verified 03/24/24 17:22 [From Flexeril] motional morphine AdvReac Itching Verified 03/24/24 17:22 Physical Exam Vitals: Vital Signs Temp Pulse Pulse Resp BP BP Pulse Ox 03/25/24 07:00 97.7 F 63 13 106/58 100 03/25/24 02:00 97.9 F 67 16 106/70 100 03/24/24 22:36 97.6 F 65 16 107/54 100 03/24/24 21:44 78 16 120/74 98 03/24/24 17:47 63 16 112/52 100 03/24/24 15:44 79 20 125/85 100 03/24/24 15:07 97.6 F 86 18 131/83 100 Intake and Output 03/24/24 03/25/24 03/25/24 22:59 06:59 14:59 Other: # Voids 1 Weight 95.254 kg GENERAL: The patient is alert and oriented x3, not in any acute distress. Well developed, well nourished. HEENT: Pupils are round and equally reacting to light. EOMI. No scleral icterus. No conjunctival pallor. Normocephalic, atraumatic. No pharyngeal erythema. No thyromegaly. CARDIOVASCULAR: S1 and S2 present. No murmurs, rubs, or gallops. PULMONARY: Chest is clear to auscultation, no wheezing , no crackles. ABDOMEN: Soft, nontender, nondistended, normoactive bowel sounds. No palpable organomegaly. MUSCULOSKELETAL: No joint swelling or deformity. EXTREMITIES: No cyanosis, clubbing, or pedal edema. NEUROLOGICAL: Gross neurological examination did not reveal any focal deficits. SKIN: No rashes. no petechiae. Results CBC & Chem 7: 03/24/24 15:41 03/24/24 15:41 Labs: Abnormal Lab Results - Last 24 Hours (Table) 03/24/24 Range/Units 15:41 Chloride 110 H (98-107) mmol/L Glucose 103 H (74-99) mg/dL Assessment and Plan Assessment: Chest pain, most likely musculoskeletal, rule out cardiac causes. CT was negative for PE Headache most likely tension headache, History of Chiari malformation Obesity with BMI of 31.9 Distended urinary bladder, no evidence of fecal retention Plan: Patient s/p aspirin Currently chest pain is improving, pending cardiology evaluation Patient wants to see neurologist while in house because her appointment is on June for outpatient neurologist Continue monitoring for now Labs and medication were reviewed.. Continue same treatment. Continue with symptomatic treatment. Resume home medication. Monitor labs and vitals. DVT and GI prophylaxis. Further recommendations as per clinical course of the patient DVT prophylaxis: Subcutaneous heparin GI Prophylaxis: Pepcid Prognosis is guarded
--- NOTE | 2024-03-25 12:28 | P.CRDCN ---
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 She presented to the hospital complaining of chest discomfort. She describes discomfort as a dull feeling in the middle of the chest with radiation to the back and radiation to the right arm. No shortness of breath or dizziness or lightheadedness or presyncope or syncope. No history of coronary artery disease or congestive heart failure or cardiac arrhythmia and never seen by a print line operator before but she underwent further evaluation including an EKG showed sinus mechanism with no ischemic changes and troponin with 3 sets came in to be unremarkable. CT scan of the chest did not show any acute abnormalities. The examination is remarkable for regular rhythm with a soft systolic murmur and clear breathing sounds bilaterally and no carotid bruit and no edema was noted. Please note that the patient does have significant family history of cardiovascular disease Assessment Atypical chest discomfort versus noncardiac chest discomfort Multiple comorbid conditions as described above including Milan-Danlos syndrome and Chiari malformation and POTS Plan Acute coronary event was ruled out Obtain an echocardiogram and stress test Follow-up with the patient Past Medical History Additional Past Medical History / Comment(s): POTS, arnold chiari, reynauds, Milan Danlos Syndrome. 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 Her 1st was complicated by eclampsia requiring a 34 week delivery by C- section. History of Any Multi-Drug Resistant Organisms: None Reported Past Surgical History: Section, Cholecystectomy Additional Past Surgical History / Comment(s): chiari decompression(head/brain), bilateral knee scope (1 on right, 3 on left), D&C. Past Psychological History: No Psychological Hx Reported Smoking Status: Former smoker Past Alcohol Use History: Occasional Past Drug Use History: None Reported - Past Family History Father Family Medical History: Unable to Obtain Mother Family Medical History: Hypertension Additional Family Medical History / Comment(s): Maternal grandparents both had diabetes. Medications and Allergies Home Medications Medication Instructions Recorded Confirmed Type Topiramate [Topamax] 100 mg PO HS 07/31/20 03/24/24 History Gabapentin [Neurontin] 300 mg PO DAILY 12/22/20 03/24/24 History Acetaminophen Tab [Tylenol] 650 mg PO Q4H PRN 03/24/24 03/24/24 History Gabapentin 300 mg PO DAILY PRN 03/24/24 03/24/24 History Gabapentin [Neurontin] 600 mg PO HS 03/24/24 03/24/24 History Loratadine [Claritin] 10 mg PO DAILY PRN 03/24/24 03/24/24 History Allergies Allergy/AdvReac Type Severity Reaction Status Date / Time adhesive tape Allergy Rash/Hives Verified 03/24/24 17:22 zonisamide [From Zonegran] Allergy Rash/Hives Verified 03/24/24 17:22 cyclobenzaprine HCl AdvReac Confusion/E Verified 03/24/24 17:22 [From Flexeril] motional morphine AdvReac Itching Verified 03/24/24 17:22 Physical Exam Vitals: Vital Signs Temp Pulse Pulse Resp BP BP Pulse Ox 03/25/24 07:00 97.7 F 63 13 106/58 100 03/25/24 02:00 97.9 F 67 16 106/70 100 03/24/24 22:36 97.6 F 65 16 107/54 100 03/24/24 21:44 78 16 120/74 98 03/24/24 17:47 63 16 112/52 100 03/24/24 15:44 79 20 125/85 100 03/24/24 15:07 97.6 F 86 18 131/83 100 Intake and Output 03/24/24 03/25/24 03/25/24 22:59 06:59 14:59 Other: # Voids 1 Weight 95.254 kg Results 03/24/24 15:41 03/24/24 15:41 Cardiac Enzymes 03/24/24 03/24/24 03/24/24 Range/Units 15:41 15:41 15:41 AST 20 (14-36) U/L Troponin I <0.012 <0.012 (0.000-0.034) ng/mL 03/25/24 03/25/24 Range/Units 01:12 06:42 AST (14-36) U/L Troponin I <0.012 <0.012 (0.000-0.034) ng/mL Coagulation 03/24/24 Range/Units 15:41 PT 11.1 (10.0-12.5) sec APTT 25.4 (22.0-30.0) sec CBC 03/24/24 Range/Units 15:41 WBC 6.9 (3.8-10.6) k/uL RBC 4.80 (3.80-5.40) m/uL Hgb 14.1 (11.4-16.0) gm/dL Hct 42.7 (34.0-46.0) % Plt Count 307 (150-450) k/uL Comprehensive Metabolic Panel 03/24/24 Range/Units 15:41 Sodium 140 (137-145) mmol/L Potassium 3.5 (3.5-5.1) mmol/L Chloride 110 H (98-107) mmol/L Carbon Dioxide 24 (22-30) mmol/L BUN 14 (7-17) mg/dL Creatinine 0.94 (0.52-1.04) mg/dL Glucose 103 H (74-99) mg/dL Calcium 9.5 (8.4-10.2) mg/dL AST 20 (14-36) U/L ALT 14 (4-34) U/L Alkaline Phosphatase 62 (38-126) U/L Total Protein 7.5 (6.3-8.2) g/dL Albumin 4.6 (3.5-5.0) g/dL Current Medications Generic Name Dose Route Start Last Admin Trade Name Freq PRN Reason Stop Dose Admin Acetaminophen 650 mg 03/24/24 21:07 03/25/24 05:36 Acetaminophen Tab 325 Mg Tab PO 650 mg Q6HR PRN Administration Mild Pain or Fever > 100.5 Alprazolam 0.25 mg 03/24/24 21:07 Alprazolam 0.25 Mg Tab PO Q6HR PRN Anxiety Famotidine 20 mg 03/25/24 09:00 03/25/24 09:07 Famotidine 20 Mg Tab PO 20 mg BID NAZIA Administration Gabapentin 300 mg 03/24/24 21:09 Gabapentin 300 Mg Cap PO DAILY PRN Pain Gabapentin 600 mg 03/24/24 22:00 03/24/24 23:00 Gabapentin 300 Mg Cap PO 600 mg HS NAZIA Administration Gabapentin 300 mg 03/25/24 09:00 03/25/24 09:07 Gabapentin 300 Mg Cap PO 300 mg DAILY NAZIA Administration Ibuprofen 600 mg 03/24/24 21:07 Ibuprofen 600 Mg Tab PO Q6HR PRN Mild Pain or Fever > 100.5 Loratadine 10 mg 03/24/24 21:09 Loratadine 10 Mg Tab PO DAILY PRN Allergy Symptoms Naloxone HCl 0.2 mg 03/24/24 21:07 Naloxone 0.4 Mg/Ml 1 Ml Vial IV Q2M PRN Opioid Reversal Ondansetron HCl 4 mg 03/24/24 21:07 Ondansetron 4 Mg/2 Ml Vial IVP Q8HR PRN Nausea And Vomiting Topiramate 100 mg 03/24/24 21:15 03/24/24 23:00 Topiramate 100 Mg Tab PO 100 mg HS NAZIA Administration Intake and Output 03/24/24 03/25/24 03/25/24 22:59 06:59 14:59 Other: # Voids 1 Weight 95.254 kg 03/24/24 15:41 03/24/24 15:41
[2024-03-25] MEDS: IBUPROFEN 600 MG TAB PO PRN (15:52)
[2024-03-26 03:39] LABS: African American GFR (CKD) >90 (>60 ml/min/1.73 sqM); Anion Gap 5 mmol/L; Blood Urea Nitrogen 14 mg/dL (7-17); Calcium 8.5 mg/dL (8.4-10.2); Carbon Dioxide 18 mmol/L (22-30); Chloride 112 mmol/L (98-107); Glucose 80 mg/dL (74-99); Non-African American GFR(CKD) 79 (>60 ml/min/1.73 sqM); Sodium 135 mmol/L (137-145)
[2024-03-26 04:25] LABS: HCG,Qualitative Serum Not Detected
[2024-03-26] MEDS: ONDANSETRON 4 MG/2 ML VIAL IVP PRN (07:55)
--- NOTE | 2024-03-26 12:13 | P.PN ---
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 She presented to the hospital complaining of chest discomfort. She describes discomfort as a dull feeling in the middle of the chest with radiation to the back and radiation to the right arm. No shortness of breath or dizziness or lightheadedness or presyncope or syncope. No history of coronary artery disease or congestive heart failure or cardiac arrhythmia and never seen by a placing judge before but she underwent further evaluation including an EKG showed sinus mechanism with no ischemic changes and troponin with 3 sets came in to be unremarkable. CT scan of the chest did not show any acute abnormalities. The examination is remarkable for regular rhythm with a soft systolic murmur and clear breathing sounds bilaterally and no carotid bruit and no edema was noted. Please note that the patient does have significant family history of cardiovascular disease March 26, 2024 The patient was seen and evaluated this morning. She remains asymptomatic at this point and she remains a stable as well. She is scheduled to undergo a stress test and echocardiogram tomorrow. The examination is remarkable for regular rhythm with a soft systolic murmur and clear breathing sounds bilaterally and no edema was noted Assessment Atypical chest discomfort versus noncardiac chest discomfort Multiple comorbid conditions as described above including Milan-Danlos syndrome and Chiari malformation and POTS Plan Acute coronary event was ruled out Obtain an echocardiogram and stress test Follow-up with the patient Objective - Vital Signs Vital signs: Vital Signs Temp 98.7 F 03/26/24 07:00 Pulse 85 03/26/24 07:00 Resp 17 03/26/24 07:00 BP 108/70 03/26/24 07:00 Pulse Ox 100 03/26/24 07:00 FiO2 Intake & Output 03/25/24 03/26/24 03/26/24 18:59 06:59 18:59 Intake Total 118 1080 240 Balance 118 1080 240 Intake: Oral 118 1080 240 Other: # Voids 1 2 - Labs CBC & Chem 7: 03/24/24 15:41 03/26/24 02:45 Labs: Abnormal Lab Results - Last 24 Hours (Table) 03/26/24 Range/Units 02:45 Sodium 135 L (137-145) mmol/L Chloride 112 H (98-107) mmol/L Carbon Dioxide 18 L (22-30) mmol/L
--- NOTE | 2024-03-26 15:35 | CA ---
Transthoracic Echo Report Name: Pedro Latham Age: 44 Gender: F : 1980 Exam Date: 03/25/2024 15:00 Exam Location: [facility] Ht (in): 68 Wt (lb): 210 Ordering Physician: Sylvester Koenig MD ([id number]) Attending/Referring Phys: Plastic Card Grader Cardroom Norma Dennis RDCS Procedure CPT: Indications: Chest Pain Cardiac Hx: Technical Quality: Good Contrast 1: Total Dose (mL): Contrast 2: Total Dose (mL): MEASUREMENTS (Male / Female) Normal Values 2D ECHO LV Diastolic Diameter PLAX 4.3 cm 4.2 - 5.9 / 3.9 - 5.3 cm LV Systolic Diameter PLAX 3.2 cm IVS Diastolic Thickness 0.8 cm 0.6 - 1.0 / 0.6 - 0.9 cm LVPW Diastolic Thickness 0.9 cm 0.6 - 1.0 / 0.6 - 0.9 cm LV Relative Wall Thickness 0.4 RV Internal Dim ED PLAX 3.2 cm LA Systolic Diameter LX 3.5 cm 3.0 - 4.0 / 2.7 - 3.8 cm LV Diastolic Volume MOD BP 97.1 cm??? 67 - 155 / 56 - 104 cm??? LV Systolic Volume MOD BP 32.1 cm??? 22 - 58 / 19 - 49 cm??? LV Ejection Fraction MOD BP 66.9 % >= 55 % LV Cardiac Index MOD BP 2547.0 cm???/min???m??? LV Diastolic Volume MOD 4C 79.2 cm??? LV Systolic Volume MOD 4C 29.6 cm??? LV Ejection Fraction MOD 4C 62.6 % LV Cardiac Index MOD 4C 1941.9 cm???/min???m??? LV Diastolic Length 4C 8.1 cm LV Systolic Length 4C 6.2 cm LV Diastolic Volume MOD 2C 112.2 cm??? LV Systolic Volume MOD 2C 32.4 cm??? LV Ejection Fraction MOD 2C 71.2 % LV Cardiac Index MOD 2C 3130.3 cm???/min???m??? LV Diastolic Length 2C 8.7 cm LV Systolic Length 2C 6.8 cm LA Volume 56.0 cm??? 18 - 58 / 22 - 52 cm??? LA Volume Index 25.8 cm???/m??? 16 - 28 cm???/m??? M-MODE Aortic Root Diameter MM 2.8 cm AV Cusp Separation MM 2.0 cm DOPPLER AV Peak Velocity 125.4 cm/s AV Peak Gradient 6.3 mmHg MV Area PHT 2.6 cm??? Mitral E Point Velocity 84.1 cm/s Mitral A Point Velocity 40.6 cm/s Mitral E to A Ratio 2.1 MV Deceleration Time 291.9 ms TR Peak Velocity 224.8 cm/s TR Peak Gradient 20.2 mmHg Right Ventricular Systolic Press 25.2 mmHg FINDINGS Left Ventricle Left ventricular ejection fraction is estimated at 60-65 %. Left ventricular cavity size normal. Left ventricular wall thickness normal. Normal left ventricular wall motion. Right Ventricle Normal right ventricular size and function. Right ventricular systolic pressure within normal limits. Right Atrium Normal right atrial size. No right atrial thrombus or mass seen. Left Atrium Normal left atrial size. No left atrial thrombus or mass present. Mitral Valve Structurally normal mitral valve. No evidence for mitral valve prolapse. No mitral stenosis. Trace mitral regurgitation. Aortic Valve Trileaflet aortic valve. No aortic valve stenosis or regurgitation. Tricuspid Valve Structurally normal tricuspid valve. Trace to mild tricuspid regurgitation. Pulmonic Valve Structurally normal pulmonic valve. No pulmonic regurgitation. Pericardium No pericardial effusion. No pleural effusion. Aorta Normal size aortic root and proximal ascending aorta. CONCLUSIONS Normal LV systolic function Previewed by: Dr. Sylvester Koenig MD (Electronically Signed) Final Date: 26 March 2024 15:34
--- NOTE | 2024-03-27 00:47 | P.CNNES ---
History of Present Illness Consult date: 03/26/24 Requesting physician: Pb Nicole Reason for Consult: PATTERSON, h/o chiari malformation History of Present Illness: Patient is a 44-year-old female came to the hospital 2 days ago for chest pain, dizziness, veering heart monitor. Patient has history of Milan-Danlos syndrome, Chiari malformation, POTS presented with chest pain. Patient states she was diagnosed with Chiari malformation at age 29. She underwent suboccipital craniectomy decompression at age 33. Patient states her headaches started at age 17 and symptoms got worse as she got older. At first she was suspected of having lupus, MS-like symptoms with numbness tingling slurring dizziness spots in her vision, headache, nausea and the symptoms continued to get worse. She would have tingling in the hands and feet and would drop things with her hands. Her symptoms got worse at age 25. After she underwent surgical treatment for her Chiari malformation, by Dr. Kristen Conn at [facility], her symptoms improved about 70%. Patient used to follow up with Dr. Zelaya at [facility], but has not seen a neurologist for a few years. She is scheduled to be seen by her neurologist in June 2024. Patient is having headaches about 2 times a month which she relates -05/09, which lasts for about 3-4 days. She gets nausea but no vomiting. She is light sensitive more than the 90s. It involves above the eye and cheek region AROUND her head. Fast movement bothers her. She does have chronic daily headaches which is around 3 or less which she considers "a normal day". She usually tries Imitrex nasal spray for her migraines. She has never tried new agents like Aimovog or Emgality, neither has she tried more recent abortive treatments like Nurtec or Ubrelvy. In the last 3 weeks she has been having. Symptoms in which her heart was fluttering, heart was racing, dizzy lightheaded than blurred vision then she gets intense headache.. Last Wednesday she was having heart fluttering, then she started having chest pain extending to the back between her shoulder blades and then extending to the right arm. She got concerned and t herefore came to the hospital. She still has headaches 02/06. Patient currently has an event monitor in place. Vital signs on arrival blood pressure 131/83 pulse rate 86 temperature 97.6. Blood test shows normal CBC PT PTT, normal CMP, troponin. HCG is normal, TSH normal. EKG showed sinus rhythm. Thoracic aorta CT showed no evidence for thoracic aortic dissection. Unusual and abnormal urinary bladder distention. CT head showed no acute abnormality. Status post suboccipital decompression. No hydrocephalus. I personally reviewed CT head, agree with the findings. 2D echo revealed normal left ventricular systolic function with EF 60 to 65%. Normal left atrial size. Patient's home medications include Topamax 100 mg at bedtime, gabapentin 300 mg daily and 600 mg at bedtime, Claritin and loratadine. Patient denies hypertension or diabetes. She drinks couple drinks of wine 5 out of 7 nights a week. Review of Systems All pertinent positives and negatives mentioned in the HPI. All other review of systems reviewed and noncontributory. 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 Her 1st was complicated by eclampsia requiring a 34 week delivery by C- section. History of Any Multi-Drug Resistant Organisms: None Reported Past Surgical History: Section, Cholecystectomy Additional Past Surgical History / Comment(s): chiari decompression(head/brain), bilateral knee scope (1 on right, 3 on left), D&C. Past Psychological History: No Psychological Hx Reported Smoking Status: Former smoker Past Alcohol Use History: Occasional Past Drug Use History: None Reported - Past Family History Father Family Medical History: Unable to Obtain Mother Family Medical History: Hypertension Additional Family Medical History / Comment(s): Maternal grandparents both had diabetes. Medications and Allergies Home Medications Medication Instructions Recorded Confirmed Type Topiramate [Topamax] 100 mg PO HS 07/31/20 03/24/24 History Gabapentin [Neurontin] 300 mg PO DAILY 12/22/20 03/24/24 History Acetaminophen Tab [Tylenol] 650 mg PO Q4H PRN 03/24/24 03/24/24 History Gabapentin 300 mg PO DAILY PRN 03/24/24 03/24/24 History Gabapentin [Neurontin] 600 mg PO HS 03/24/24 03/24/24 History Loratadine [Claritin] 10 mg PO DAILY PRN 03/24/24 03/24/24 History Allergies Allergy/AdvReac Type Severity Reaction Status Date / Time adhesive tape Allergy Rash/Hives Verified 03/24/24 17:22 zonisamide [From Zonegran] Allergy Rash/Hives Verified 03/24/24 17:22 cyclobenzaprine HCl AdvReac Confusion/E Verified 03/24/24 17:22 [From Flexeril] motional morphine AdvReac Itching Verified 03/24/24 17:22 Physical Examination - Vital Signs Vital Signs: Vital Signs Temp Pulse Resp BP Pulse Ox 03/26/24 14:40 97.6 F 78 17 120/74 100 03/26/24 07:00 98.7 F 85 17 108/70 100 03/26/24 02:00 97.9 F 65 16 103/62 99 03/25/24 20:00 98.0 F 68 18 111/71 100 Intake and Output 03/26/24 03/26/24 03/26/24 06:59 14:59 22:59 Intake Total 540 358 Balance 540 358 Intake: Oral 540 358 Other: # Voids 2 1 Patient is a middle aged female, very pleasant, in no acute distress. Patient is alert awake oriented to time place and person. Speech and language functions are normal. Patient can name and repeat very well. No aphasia or dysarthria. Attention, concentration and fund of knowledge is adequate. On cranial nerve examination, pupils are equal, round and reacting to light, visual ruiz are full on confrontation, with no neglect on double simultaneous stimulation. Extraocular muscles are intact with no nystagmus. Face is symmetric, tongue protrudes to the midline. Palatal elevation and sensation normal, hearing and shoulder shrug normal, facial sensation normal. On muscle strength testing, there is no pronator drift and the strength is normal in arms and legs distally and proximally. Deep tendon reflexes are symmetric 2+ all over and plantars downgoing. Sensory to touch is equal with no neglect on double simultaneous stimulation. Cerebellar function showed no ataxia for [id number] testing. No dysdiadochokinesia. No ataxia for [id number] testing on either side. Tone and bulk of muscles normal. Gait deferred.. On general examination, there is no carotid bruit or murmur, S1-S2 audible. Chest is clear on consultation. Abdomen is soft nontender. No organomegaly, bowel sounds present. Peripheral pulses are present. No peripheral edema. Results - Laboratory Findings CBC and BMP: 03/24/24 15:41 03/26/24 02:45 Abnormal Lab Findings: Abnormal Labs 03/24/24 03/26/24 15:41 02:45 Sodium 135 L Chloride 110 H 112 H Carbon Dioxide 18 L Glucose 103 H Assessment and Plan Assessment: * Chronic daily headaches with periodic migraines. * History of Chiari malformation, status post decompression at age 33. * Atypical chest pain, with palpitations, cardiology on board * Reported history of Milan-Danlos syndrome * POTS Plan: * Patient has chronic daily headaches with periodic migraines. Patient has not seen neurologists for a few years. She has never tried the newer agents, use for migraines. Patient was recommended to follow-up with the neurologist to try medications like Emgality, Nurtec or Ubrelvy. * She was recommended to keep a log of the headaches on the calendar and take the headache calendar to the appointment with her neurologist. * CT head revealed no acute process. Paranasal sinuses are clear. No hydrocephalus. * Other management as per IM and other specialties on board. * Neurologically, no other workup indicated. * Neurologically clear. Please call neurology if any other concerns. Dr. Quintanilla starting neurology service in the morning. * Thank you for the consult.
--- NOTE | 2024-03-27 08:30 | P.PN ---
Subjective This is a pleasant 44 years old female with past medical history of Chiari malformation Presents because of chest pain and headache Patient states that she has been having this chest pain for more than 3 weeks About 8/10 in severity, currently 2/10 in the middle of the chest radiating to the back felt nonspecific cannot like somebody or something function in her chest with no precipitating or relieving factors No coughing dyspnea, no change in urine or bowel habits. She complains from headache and she has a neurologist is appointment with him is on June and she wants to see neurologist in-house She denies dizziness, no weakness or tingling, get up and go test is normal She denies smoking alcohol or illicit drugs Vitals are stable CBC, BMP liver enzymes and INR unremarkable Troponin is negative, BNP 30 TSH 1.1 ECG showing sinus rhythm at [address]-T changes Chest x-ray showing no acute process CT of the brain is negative for acute process, s/p suboccipital decompression, no hydrocephalus Thoracic aortic CT showing no thoracic aortic dissection or aneurysm, no pulmonary embolism, Urinary Bladder distended 03/26 Patient sitting in chair not in distress. Complains from headache No other neurological weakness or numbness. No confusion Patient request to see neurologist who cleared her for discharge, she has follow-up appointment on June of this year Stress test and echocardiogram are ordered. No other new complaints Objective - Vital Signs Vital signs: Vital Signs Temp 97.6 F 03/26/24 14:40 Pulse 78 03/26/24 14:40 Resp 17 03/26/24 14:40 BP 120/74 03/26/24 14:40 Pulse Ox 100 03/26/24 14:40 FiO2 Intake & Output 03/25/24 03/26/24 03/26/24 18:59 06:59 18:59 Intake Total 118 1080 358 Balance 118 1080 358 Intake: Oral 118 1080 358 Other: # Voids 1 2 1 - Exam GENERAL: The patient is alert and oriented x3, not in any acute distress. Well developed, well nourished. HEENT: Pupils are round and equally reacting to light. EOMI. No scleral icterus. No conjunctival pallor. Normocephalic, atraumatic. No pharyngeal erythema. No thyromegaly. CARDIOVASCULAR: S1 and S2 present. No murmurs, rubs, or gallops. PULMONARY: Chest is clear to auscultation, no wheezing , no crackles. ABDOMEN: Soft, nontender, nondistended, normoactive bowel sounds. No palpable organomegaly. MUSCULOSKELETAL: No joint swelling or deformity. EXTREMITIES: No cyanosis, clubbing, or pedal edema. NEUROLOGICAL: Gross neurological examination did not reveal any focal deficits. SKIN: No rashes. no petechiae. - Labs CBC & Chem 7: 03/24/24 15:41 03/26/24 02:45 Labs: Abnormal Lab Results - Last 24 Hours (Table) 03/26/24 Range/Units 02:45 Sodium 135 L (137-145) mmol/L Chloride 112 H (98-107) mmol/L Carbon Dioxide 18 L (22-30) mmol/L Assessment and Plan Assessment: Chest pain, most likely musculoskeletal, rule out cardiac causes. CT was negative for PE Headache most likely tension headache, History of Chiari malformation Obesity with BMI of 31.9 Distended urinary bladder, no evidence of fecal retention Plan: Patient s/p aspirin Stress test and echocardiogram ordered Currently chest pain is improving, pending cardiology evaluation Patient wants to see neurologist while in house because her appointment is on June for outpatient neurologist Labs and medication were reviewed.. Continue same treatment. Continue with symptomatic treatment. Resume home medication. Monitor labs and vitals. DVT and GI prophylaxis. Further recommendations as per clinical course of the patient DVT prophylaxis: Subcutaneous heparin GI Prophylaxis: Pepcid Prognosis is guarded
--- NOTE | 2024-03-27 11:36 | P.PN ---
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 She presented to the hospital complaining of chest discomfort. She describes discomfort as a dull feeling in the middle of the chest with radiation to the back and radiation to the right arm. No shortness of breath or dizziness or lightheadedness or presyncope or syncope. No history of coronary artery disease or congestive heart failure or cardiac arrhythmia and never seen by a tactical intelligence officer before but she underwent further evaluation including an EKG showed sinus mechanism with no ischemic changes and troponin with 3 sets came in to be unremarkable. CT scan of the chest did not show any acute abnormalities. The examination is remarkable for regular rhythm with a soft systolic murmur and clear breathing sounds bilaterally and no carotid bruit and no edema was noted. Please note that the patient does have significant family history of cardiovascular disease March 26, 2024 The patient was seen and evaluated this morning. She remains asymptomatic at this point and she remains a stable as well. She is scheduled to undergo a stress test and echocardiogram tomorrow. The examination is remarkable for regular rhythm with a soft systolic murmur and clear breathing sounds bilaterally and no edema was noted 03/27/2024 Patient examined this morning at the bedside. Patient currently denies chest pain or pressure. She denies any shortness of breath. Vital signs are stable. PHYSICAL EXAM: VITAL SIGNS: Reviewed. GENERAL: Well-developed in no acute distress. NECK: Supple. No JVD or thyromegaly LUNGS: Respirations even and unlabored. Lungs essentially clear to auscultation bilaterally. HEART: Regular rate and rhythm. S1 and S2 heard. EXTREMITIES: Normal range of motion. No clubbing or cyanosis. Peripheral pulses intact. No lower extremity edema ASSESSMENT: Chest pain, troponin negative x 3 ACS ruled out History of Milan-Danlos syndrome History of Chiari malformation History of POTS PLAN: Patient to undergo stress echocardiogram today. If negative, she may be discharged home from a cardiac standpoint Nurse practitioner note has been reviewed by physician. Signing provider agrees with the documented findings, assessment, and plan of care documented by COMMANDING OFFICER [employer]OR[employer] SQUAD as a scribe. Objective - Vital Signs Vital signs: Vital Signs Temp 97.8 F 03/27/24 07:00 Pulse 78 03/27/24 08:00 Resp 18 03/27/24 08:00 BP 112/73 03/27/24 07:00 Pulse Ox 100 03/27/24 07:00 FiO2 Intake & Output 03/26/24 03/27/24 03/27/24 18:59 06:59 18:59 Intake Total 358 Balance 358 Intake: Oral 358 Other: # Voids 1 2 - Labs CBC & Chem 7: 03/24/24 15:41 03/26/24 02:45
[2024-03-27 15:05] VITALS: BP 125/76; RESP 16; TEMP 97.4
--- NOTE | 2024-03-27 15:37 | CA ---
Stress Echo Report Pedro Latham Age: 44 Gender: F : 1980 Exam Date: 03/27/2024 11:39 Exam Location: [place] [facility] Ht (in): 65 Wt (lb): 210 Ordering Physician: Sylvester Koenig MD ([id number]) Referring Physician: SYLVESTER KEONIG,, Vegetable Thinner: Benny Araujo Technologist Procedure CPT: Indication: Chest Pain ICD-9 Codes: Rhythm: Patient History: Chest pain and palpitations Cardiac Medications: Medications in past 24 hours: Contrast: Stress Results Protocol: Jeison Total dose(mL): Exercise Duration (min:sec): 9:[address] Depression (mm): Angina Score: No Score: METS: 10.5 Resting HR: 75 Resting BP: 107 / 77 Peak HR: 175 Peak BP: 156 / 54 Max Predicted HR: 177 99 % Max Predicted HR Target HR: 150 Double Product: 11604 Stress Summary: BP Response: Reason for Termination: Reached target heart rate or work-load Cardiac Symptoms: No symptoms ECG Analysis Resting ECG: Stress ECG: Arrhythmia: Echo Analysis Resting Echo: Peak Echo Analysis: MEASUREMENTS (Male/Female) Normal Values CONCLUSIONS Good exercise capacity on a Jeison protocol Normal blood pressure response No ECG or echocardiographic evidence for ischemia Dr. Chetan Nation MD (Electronically Signed) Final Date: 27 March 2024 15:36
[2024-03-27 15:55] VITALS: PULSE 78
[2024-03-27] MEDS: LACTULOSE 20 GM/30 ML CUP PO ONE (16:33)
== END 2024-03-27 17:16 | disposition home or self-care (01) ==
LOC: EC 15:00 → 6NMEDSUR 21:07
PROVIDERS: ADMIT Internal Medicine; ATTEND Internal Medicine
DX: R07.89 Other chest pain (principal); R00.2 Palpitations; R51.9 Headache, unspecified; N32.89 Other specified disorders of bladder; Q79.60 Ehlers-Danlos syndrome, unspecified; G90.A Postural orthostatic tachycardia syndrome [POTS]; Q07.00 Arnold-Chiari syndrome without spina bifida or hydrocephalus; E66.9 Obesity, unspecified; Z68.31 Body mass index [BMI] 31.0-31.9, adult; Z87.891 Personal history of nicotine dependence; Z79.899 Other long term (current) drug therapy; Z88.5 Allergy status to narcotic agent
CPT/HCPCS: 96376; 96366 ×2; 96361; 96365; 96375; 99285; 36415; 93005; 93306; 93351; 83880; 80053; 80048; 83735; 84443; 84484 ×2; 85025; 85610; 85730; 84703; 70450; 71275; 74174; G0378 ×4; J1200; J2765; J2405 ×2; J3475; J1885; Q9967

== ENCOUNTER → 2024-04-25 | Outpatient (CLI) | payer BC ==
[2024-04-25 10:01] VITALS: BP 109/74; PULSE 93; RESP 17; TEMP 97.9
--- NOTE | 2024-04-25 10:38 | P.HPOB ---
History of Present Illness H&P Date: 04/25/24 Chief Complaint: The patient is here for her routine gynecologic exam and ma mmogram. This is a 44-year-old -1-1-2 with an LMP of 04/13/2024. She is here to reestablish with this office. Her last visit here was on 07/31/2020. Her last Pap smear on 01/10/2019 showed ASCUS with negative high risk HPV testing. We were planning on repeating the Pap smear approximately 2 to 3 years after her last Pap smear. She states her menstrual periods are generally regular every mo nth but occasionally once or twice per year we will go up to 5 to 6 weeks between periods. She is otherwise without gynecologic complaints. Review of Systems She has lost about 26 pounds since she was last here about 4 years ago. She states she has been doing this with dietary changes and weight loss has been intentional. She denies respiratory or cardiac problems. GI: Bowel movements are typically every 4 days and this is not new for her. Neurologic: She states she has had a slight headache for about 30 days. She is undergoing a workup for this. 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 Migraine. 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 Her 1st was complicated by eclampsia requiring a 34 week delivery by . History of Any Multi-Drug Resistant Organisms: None Reported Past Surgical History: Section, Cholecystectomy Additional Past Surgical History / Comment(s): chiari decompression(head/brain), bilateral knee scope (1 on right, 3 on left), D&C. Past Psychological History: No Psychological Hx Reported Smoking Status: Former smoker Past Alcohol Use History: None Reported (She states she has quit drinking alcohol because alcohol seems to aggravate certain medical problems.) Additional Past Alcohol Use History / Comment(s): Quit smoking as a teenager. 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 - Past Family History Father Family Medical History: Coronary Artery Disease (CAD) Additional Family Medical History / Comment(s): . Mother Family Medical History: Hypertension Additional Family Medical History / Comment(s): Maternal grandparents both had diabetes. Medications and Allergies Home Medications Medication Instructions Recorded Confirmed Type Topiramate [Topamax] 100 mg PO HS 07/31/20 04/25/24 History Acetaminophen Tab [Tylenol] 650 mg PO Q4H PRN 03/24/24 04/25/24 History Gabapentin [Neurontin] 600 mg PO HS 03/24/24 04/25/24 History Loratadine [Claritin] 10 mg PO DAILY PRN 03/24/24 04/25/24 History Ibuprofen [Motrin] 600 mg PO Q6HR PRN #30 tab 03/27/24 04/25/24 Rx Lactulose [Cephulac] 30 gm PO BID PRN #240 ml 03/27/24 04/25/24 Rx Allergies Allergy/AdvReac Type Severity Reaction Status Date / Time adhesive tape Allergy Rash/Hives Verified 04/25/24 09:57 zonisamide [From Zonegran] Allergy Rash/Hives Verified 04/25/24 09:57 cyclobenzaprine HCl AdvReac Confusion/E Verified 04/25/24 09:57 [From Flexeril] motional morphine AdvReac Itching Verified 04/25/24 09:57 Exam Vital Signs Temp Pulse Resp BP Pulse Ox 04/25/24 09:58 97.9 F 93 17 109/74 98 Intake and Output 04/24/24 04/25/24 04/25/24 22:59 06:59 14:59 Other: Weight 92.533 kg Height 5 feet 8 inches, weight 204 pounds, BMI 31.0. This is a well-developed well-nourished white female who is alert and oriented times 3 in no acute distress. HEENT: Within normal limits. NECK: Supple without mass or thyromegaly. CHEST AND LUNGS: Clear to auscultation. HEART: Regular rate and rhythm. BREASTS: Are without mass or discharge. AXILLARY EXAM: Negative for adenopathy. BACK: Negative for CVA tenderness. ABDOMEN: Soft, nontender, without palpable masses. PELVIC EXAM: Normal external genitalia. Cervix and vagina appear normal. The cervix was somewhat friable upon doing the Pap smear. There is no unusual discharge. There is no evidence of prolapse. The uterus is midposition, nongravid size and nontender. There are no palpable adnexal masses or tenderness. RECTAL EXAM: negative for mass or tenderness and is negative for occult blood. EXTREMITIES: Nontender. IMPRESSION: 1. 44-year-old female with slightly friable cervix and otherwise unremarkable gynecologic exam. 2. Frequent slight menstrual irregularity. 3. Last Pap smear on 01/10/2019 showed ASCUS with negative high-risk HPV testing. PLAN: 1. Pap smear cotest was performed. 2. Self breast awareness was discussed with the patient. We have also discussed symptoms associated with inflammatory breast cancer. 3. Screening mammogram was done today. 4. Osteoporosis prevention was discussed. I have stressed the importance of adequate calcium, vitamin D and regular exercise. Recommended amounts of calcium and vitamin D were also discussed. 5. She will keep a menstrual calendar. She will call if menstrual problems. 6. She was advised to return in one year for her annual well woman exam.
== END ==
LOC: WWCWWP 09:30
PROVIDERS: ATTEND Obstetrics & Gynecology
DX: Z01.419 Encounter for gynecological examination (general) (routine) without abnormal findings (principal); N92.6 Irregular menstruation, unspecified; Z87.891 Personal history of nicotine dependence; Z87.59 Personal history of other complications of pregnancy, childbirth and the puerperium; Z88.5 Allergy status to narcotic agent; Z88.2 Allergy status to sulfonamides; Z91.048 Other nonmedicinal substance allergy status; Z88.8 Allergy status to other drugs, medicaments and biological substances

== ENCOUNTER → 2024-04-25 | Outpatient (CLI) | payer BC ==
--- NOTE | 2024-05-02 12:44 | MM ---
Reason for Exam: Screening (asymptomatic). Last mammogram was performed 3 year(s) and 8 month(s) ago. Patient History: Menarche at age 17. First Full-Term at age 24. Last menstrual period: 03/30/2024 Risk Values: Nicolette 5 year model risk: 0.6%. NCI Lifetime model risk: 8.0%. Prior Study Comparison: 01/10/2019 Bilateral Diagnostic Mammogram, [facility]. 07/31/2020 Bilateral Diagnostic Mammogram, [facility]. Tissue Density: The breasts are heterogeneously dense, which may obscure small masses. Findings: Analyzed By CAD. There is no suspicious group of microcalcifications or new suspicious mass in either breast. Stable chronic nodularity. Overall Assessment: Benign, BI-RAD 2 Management: Screening Mammogram of both breasts in 1 year. . Patient should continue monthly self-breast exams. A clinical breast exam by your physician is recommended on an annual basis. This exam should not preclude additional follow-up of suspicious palpable abnormalities. Note on Nicolette scores and lifetime risk: 1. A Nicolette score greater than 3% is considered moderate risk. If this is the case, consider specialist referral to assess eligibility for a risk reducing agent. 2. If overall lifetime risk for the development of breast cancer is 20% or higher, the patient may qualify for future screening with alternating mammogram and breast MRI. Electronically signed and approved by: Mono Gaytan M.D. Radiologis
== END | disposition home or self-care (01) ==
LOC: RADMAMWWP 09:26
PROVIDERS: ATTEND Obstetrics & Gynecology
DX: Z12.31 Encounter for screening mammogram for malignant neoplasm of breast
CPT/HCPCS: 77063; 77067

== ENCOUNTER 2024-12-31 21:44 | Emergency (ER) | payer BC ==
[2024-12-31 21:48] VITALS: TEMP 97.9
--- NOTE | 2024-12-31 22:25 | ED ---
Extremity Problem HPI - General Chief complaint: Extremity Problem,Nontraumatic Stated complaint: right calf pain Time Seen by Provider: 12/31/24 21:57 Source: patient, RN notes reviewed Mode of arrival: ambulatory Limitations: no limitations - History of Present Illness Initial comments: This is a 44-year-old female with history including Milan-Danlos syndrome and von Willebrand factor presenting for lump on right calf x 3 weeks. Patient states she suffered a fall 3 weeks ago with subsequent bruising and a small lump on the lateral aspect of her right calf with associated pain (6/10). That does not seem to be resolving. Patient endorses some pain with ambulation and denies any other injuries at the time of the fall. Denies distal paresthesia or loss of motor function. MD Complaint: extremity pain Onset/Timin -: week(s) Location: right, lower extremity History of Same: No Severity scale (1-10): 6 Consistency: constant Improves with: immobilization, rest Worsens with: weight bearing, walking, palpation Associated Symptoms: denies other symptoms - Related Data Home Medications Medication Instructions Recorded Confirmed Topiramate [Topamax] 100 mg PO HS 07/31/20 04/25/24 Acetaminophen Tab [Tylenol] 650 mg PO Q4H PRN 03/24/24 04/25/24 Gabapentin [Neurontin] 600 mg PO HS 03/24/24 04/25/24 Loratadine [Claritin] 10 mg PO DAILY PRN 03/24/24 04/25/24 Previous Rx's Medication Instructions Recorded Ibuprofen [Motrin] 600 mg PO Q6HR PRN #30 tab 03/27/24 Lactulose [Cephulac] 30 gm PO BID PRN #240 ml 03/27/24 Allergies Allergy/AdvReac Type Severity Reaction Status Date / Time adhesive tape Allergy Rash/Hives Verified 12/31/24 21:48 zonisamide [From Zonegran] Allergy Rash/Hives Verified 12/31/24 21:48 cyclobenzaprine HCl AdvReac Confusion/E Verified 12/31/24 21:48 [From Flexeril] motional morphine AdvReac Itching Verified 12/31/24 21:48 Review of Systems ROS Statement: Those systems with pertinent positive or pertinent negative responses have been documented in the HPI. ROS Other: All systems not noted in ROS Statement are negative. 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 Migraine. 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 Her 1st was complicated by eclampsia requiring a 34 week delivery by . History of Any Multi-Drug Resistant Organisms: None Reported Past Surgical History: Section, Cholecystectomy Additional Past Surgical History / Comment(s): chiari decompression(head/brain), bilateral knee scope (1 on right, 3 on left), D&C. Past Psychological History: No Psychological Hx Reported Smoking Status: Former smoker Past Alcohol Use History: None Reported Past Drug Use History: None Reported - Past Family History Father Family Medical History: Coronary Artery Disease (CAD) Additional Family Medical History / Comment(s): . Mother Family Medical History: Hypertension Additional Family Medical History / Comment(s): Maternal grandparents both had diabetes. General Exam Limitations: no limitations General appearance: alert, in no apparent distress Head exam: Present: atraumatic, normocephalic, normal inspection Eye exam: Present: normal appearance, PERRL, EOMI. Absent: scleral icterus, conjunctival injection, periorbital swelling ENT exam: Present: normal exam, mucous membranes moist Neck exam: Present: normal inspection. Absent: tenderness, meningismus, lymphadenopathy Respiratory exam: Present: normal lung sounds bilaterally. Absent: respiratory distress, wheezes, rales, rhonchi, stridor Cardiovascular Exam: Present: regular rate, normal rhythm, normal heart sounds. Absent: systolic murmur, diastolic murmur, rubs, gallop, clicks GI/Abdominal exam: Present: soft, normal bowel sounds. Absent: distended, tenderness, guarding, rebound, rigid Extremities exam: Present: full ROM, tenderness (Positive right lateral calf tenderness with 1 cm subcutaneous mass/hematoma noted on right lateral mid calf without overlying ecchymosis, erythema, warmth), normal capillary refill, calf tenderness, other (Distal RLE neurovascular and motor function intact, posterior tibialis pulse +2, capillary refill less than 2 seconds). Absent: pedal edema, joint swelling Back exam: Present: normal inspection Neurological exam: Present: alert, oriented X3, CN II-XII intact Psychiatric exam: Present: normal affect, normal mood Skin exam: Present: warm, dry, intact, normal color. Absent: rash Course Vital Signs 12/31/24 01/01/25 21:45 00:37 Temperature 97.9 F 97.9 F Pulse Rate 82 74 Respiratory 18 16 Rate Blood Pressure 132/82 121/75 O2 Sat by Pulse 100 100 Oximetry Medical Decision Making - Medical Decision Making Was pt. sent in by a medical professional or institution (, PA, ASSIGNMENT MANAGER, urgent care, hospital, or intermediate...) When possible be specific @ -No Did you speak to anyone other than the patient for history (EMS, parent, family, police, friend...)? What history was obtained from this source @ -No Did you review nursing and triage notes (agree or disagree)? Why? @ -I reviewed and agree with nursing and triage notes Were old charts reviewed (outside hosp., previous admission, EMS record, old EKG, old radiological studies, urgent care reports/EKG's, intermediate records)? Report findings @ -No old charts were reviewed Differential Diagnosis (chest pain, altered mental status, abdominal pain women, abdominal pain men, vaginal bleeding, weakness, fever, dyspnea, syncope, headache, dizziness, GI bleed, back pain, seizure, CVA, palpatations, mental health, musculoskeletal)? @ -Differential Musculoskeletal Muscular strain, contusion, ligament sprain, fracture, arthritis, septic arthritis, bursitis, cellulitis, muscle spasm, nerve compression, DVT, arterial occlusion, herpes zoster, electrolyte abnormality, tumor.... This is not meant to be in all inclusive list EKG interpreted by me (3pts min.). @ -Not done X-rays interpreted by me (1pt min.). @ -Right tib-fib x-ray shows no acute fracture or dislocation. CT interpreted by me (1pt min.). @ -None done U/S interpreted by me (1pt. min.). @ -RLE Doppler ultrasound shows no evidence of DVT. What testing was considered but not performed or refused? (CT, X-rays, U/S, labs)? Why? @ -None What meds were considered but not given or refused? Why? @ -None Did you discuss the management of the patient with other professionals (professionals i.e. , LUCILLE, ASSIGNMENT MANAGER, lab, RT, psych nurse, social work msw, warp dresser, teacher, credit officer, upper caser)? Give summary @ -No Was smoking cessation discussed for >3mins.? @ -No Was critical care preformed (if so, how long)? @ -No Were there social determinants of health that impacted care today? How? (Homelessness, low income, unemployed, alcoholism, drug addiction, transportation, low edu. Level, literacy, decrease access to med. care, [facility], rehab)? @ -No Was there de-escalation of care discussed even if they declined (Discuss DNR or withdrawal of care, Hospice)? DNR status @ -No What co-morbidities impacted this encounter? (DM, HTN, Smoking, COPD, CAD, Cancer, CVA, ARF, Chemo, Hep., AIDS, mental health diagnosis, sleep apnea, morbid obesity)? @ -None Was patient admitted / discharged? Hospital course, mention meds given and route, prescriptions, significant lab abnormalities, going to OR and other pertinent info. @ -RLE Doppler ultrasound shows no evidence of DVT. Right tib-fib x-ray shows no acute fracture or dislocation. Advised RICE and Tylenol every 4 hours as needed for pain. Follow-up with PCP for any ongoing or worsening symptoms. Discussed patient with Dr. Craft. Undiagnosed new problem with uncertain prognosis? @ -No Drug Therapy requiring intensive monitoring for toxicity (Heparin, Nitro, Insulin, Cardizem)? @ -No Were any procedures done? @ -No Diagnosis/symptom? @ -Right calf subcutaneous hematoma Acute, or Chronic, or Acute on Chronic? @ -Acute Uncomplicated (without systemic symptoms) or Complicated (systemic symptoms)? @ -Uncomplicated Side effects of treatment? @ -No Exacerbation, Progression, or Severe Exacerbation? @ -No Poses a threat to life or bodily function? How? (Chest pain, [place], [place], pneumonia, PE, COPD, DKA, ARF, appy, cholecystitis, CVA, Diverticulitis, Homicidal, Suicidal, threat to staff... and all critical care pts) @ -No Disposition Clinical Impression: Hematoma of right lower leg Disposition: HOME SELF-CARE Condition: Good Instructions (If sedation given, give patient instructions): Hematoma (ED) Additional Instructions: Rest, compression, elevation. Cold compress to affected area for 10 minutes up to 4 times daily. Is patient prescribed a controlled substance at d/c from ED?: No Referrals: Gregoria Pierre MD [Primary Care Provider] - 1-2 days Time of Disposition: 00:19
--- NOTE | 2025-01-01 00:04 | US ---
EXAM: US Duplex Right Lower Extremity Veins CLINICAL HISTORY: Pain TECHNIQUE: Real-time duplex ultrasound scan of the right lower extremity veins integrating B-mode two-dimensional vascular structure, Doppler spectral analysis, color flow Doppler imaging and compression. COMPARISON: No relevant prior studies available. FINDINGS: Deep veins: Unremarkable. No DVT in the visualized common femoral, femoral, proximal deep femoral or popliteal veins. The veins demonstrate normal color flow, are normally compressible, with normal phasic flow and/or augmentation response. Superficial veins: Unremarkable. No thrombus in the visualized great saphenous vein. Soft tissues: Height 4: Probable subcutaneous bruising region of pain, not well characterized. No popliteal cyst. IMPRESSION: No evidence of deep venous thrombosis. Possible subcutaneous bruise/edema in the region of reported pain, not well imaged.
[2025-01-01 00:41] VITALS: BP 121/75; PULSE 74; RESP 16
--- NOTE | 2025-01-01 01:26 | XR ---
EXAM: XR Right Tibia and Fibula, 3 Views CLINICAL HISTORY: Pain TECHNIQUE: Frontal and lateral views of the right tibia and fibula. COMPARISON: No relevant prior studies available. FINDINGS: Bones/joints: Unremarkable. No acute fracture. No dislocation. Soft tissues: Unremarkable. No radiopaque foreign body. IMPRESSION: No acute abnormality.
== END 2025-01-01 00:37 | disposition home or self-care (01) ==
LOC: EC 21:44
DX: S80.11XA Contusion of right lower leg, initial encounter (principal); Z87.891 Personal history of nicotine dependence; Z88.2 Allergy status to sulfonamides; Z88.5 Allergy status to narcotic agent; Z88.8 Allergy status to other drugs, medicaments and biological substances
CPT/HCPCS: 99284